=== PATIENT | female | born 2000 | race Caucasian/White ===

== ENCOUNTER 2022-10-27 19:44 | Emergency (ER) | payer SELFPAY ==
[2022-10-27 20:21] VITALS: BP 135/79; PULSE 115; RESP 20; TEMP 36.7; O2SAT 98; BMI 36.3
--- NOTE | 2022-10-27 20:30 | CRLHL7_ITS ---
For Patients: As a result of the Century Cures Act, medical imaging exams and procedure reports are released immediately into your electronic medical record. You may view this report before your referring provider. If you have questions, please contact your health care provider. INDICATION: Muffled voice, pain and swelling. TECHNIQUE: CT soft tissue of the neck was acquired without contrast. Patient refused contrast. COMPARISON: None. FINDINGS: Skull base: Unremarkable. Pharynx/Larynx/Trachea: Epiglottis is normal. Airway is patent. Adjacent soft tissues are normal. No retropharyngeal fluid. Normal pollen [place] Salivary glands: Unremarkable. Thyroid gland: Unremarkable. No significant nodules. Lymph nodes: Prominent bilateral cervical chain lymph nodes, not pathologically enlarged. Vessels: Unremarkable for age. Bones: Straightening of the cervical lordosis. No acute findings. Misc: No inflammation, mass or fluid collection. Lung apices: Unremarkable. IMPRESSION: Prominent bilateral cervical chain lymph nodes, not pathologically enlarged. This may be reactive to an infectious or inflammatory process; however, there is no evidence for inflammation within the neck on this exam. Otherwise, unremarkable noncontrast CT of the neck. Please note that all CT scans at this facility use dose modulation, iterative reconstruction, and/or weight-based dosing when appropriate to reduce radiation dose to as low as reasonably achievable. Dictated by Hugo Perez MD @ 10/27/2022 9:38:51 PM (Electronically Signed)
--- NOTE | 2022-10-27 20:32 | ED.GENADULT ---
HPI - General Adult General Chief complaint: Sore Throat Stated complaint: Headache, Stiff neck, High white blood cell count Time Seen by Provider: 10/27/22 20:25 History of Present Illness HPI narrative: This 22-year-old female is sent here from urgent care for CT imaging of her neck. She reports pain and swelling in her neck and states that her voice is a bit muffled. She does not have trismus. There is no report of fever. She does have some tachycardia. She states that she has had her tonsils removed. Related Data Home Medications Medication Instructions Recorded Confirmed No Known Home Medications 10/27/22 10/27/22 Allergies Allergy/AdvReac Type Severity Reaction Status Date / Time acetaminophen [From Midrin] Allergy Unknown Verified 10/27/22 18:13 amoxicillin [From Augmentin] Allergy Unknown Verified 10/27/22 18:13 cephalexin [From Keflex] Allergy Unknown Verified 10/27/22 18:13 clavulanic acid Allergy Unknown Verified 10/27/22 18:13 [From Augmentin] clindamycin Allergy Unknown Verified 10/27/22 18:13 dichloralphenazone Allergy Unknown Verified 10/27/22 18:13 [From Midrin] iodine Allergy Unknown Verified 10/27/22 18:13 isometheptene [From Midrin] Allergy Unknown Verified 10/27/22 18:13 sumatriptan [From Imitrex] Allergy Unknown Verified 10/27/22 18:13 ct contrast dye Allergy Severe Difficulty Uncoded 10/27/22 18:13 Breathing paper tape Allergy tore skin Uncoded 10/27/22 18:13 off Review of Systems Status of ROS: Reports: 10 or more systems reviewed and unremarkable except as noted in History and below Narrative: Constitutional: No fevers, no weight gain or loss. Eyes: No discharge. No vision changes. HENT: Severe sore throat with sense of swelling in her neck. Cardiovascular: No chest pain, no palpitations. Respiratory: No shortness of breath, no wheezes, no cough. Gastrointestinal: No abdominal pain, no vomiting, no diarrhea. Genitourinary: No dysuria, no hematuria. Musculoskeletal: Normal range of motion. Skin: No rashes, no pruritis. Neurological: No dizziness, weakness, sensory change, speech change. Endo/Heme/Allergies: No bruising or bleeding. No polydipsia. Pysch: no suicidality, no anxiety, no insomnia. All other systems reviewed and are negative. Exam Narrative: Exam Narrative: Constitutional: Well-developed, well-nourished, no acute distress. HEENT: Normocephalic, atraumatic. Pharyngeal erythema without exudate or sign of peritonsillar abscess. No airway compromise. No trismus. Neck: Normal range of motion. Nontender. Supple. Heart: Regular. No murmurs. Normal rate. Intact distal pulses. Lungs: Clear to auscultation. No chest discomfort. No wheezes, rhonchi, or rales. Abdomen: Normal bowel sounds. Nontender. No rebound tenderness. Genitalia: Deferred. Back: No midline tenderness. Normal range of motion. Extremities: Normal range of motion. No injury. Skin: Intact. No rash. Warm. No erythema or pallor. Neurologic: No altered sensation. No weakness. Alert and oriented. Psychiatric: No suicidality. No anxiety or depression. No insomnia. Nursing notes and vitals signs are reviewed. Const: Vital Signs, click to edit/add: Vital Signs - 24 hr 10/27/22 20:21 Temperature 98.1 F Pulse Rate [Right Pulse Oximeter] 115 H Respiratory Rate 20 Blood Pressure [Ri ght Upper Arm] 135/79 Pulse Oximetry 98 Oxygen Delivery Me thod Room Air Course Vital Signs Vital signs: Initial Vital Signs Temperature 98.1 F 10/27/22 20:21 Temperature Source Temporal Artery Scan 10/27/22 20:21 Pulse Rate 115 H 10/27/22 20:21 Respiratory Rate 20 10/27/22 20:21 Blood Pressure 135/79 10/27/22 20:21 Blood Pressure Mean 97 10/27/22 20:21 Blood Pressure Position Sitting 10/27/22 20:21 Pulse Oximetry 98 10/27/22 20:21 Oxygen Delivery Method 10/27/22 20:21 Vital Signs Temperature 98.1 F 10/27/22 20:21 Pulse Rate 115 H 10/27/22 20:21 Respiratory Rate 20 10/27/22 20:21 Blood Pressure 135/79 10/27/22 20:21 Pulse Oximetry 98 10/27/22 20:21 Oxygen Delivery Method 10/27/22 20:21 Temperature 98.1 F 10/27/22 20:21 Pulse Rate 115 H 10/27/22 20:21 Respiratory Rate 20 10/27/22 20:21 Blood Pressure 135/79 10/27/22 20:21 Pulse Oximetry 98 10/27/22 20:21 Oxygen Delivery Method 10/27/22 20:21 Medical Decision Making MDM Narrative Medical decision making narrative: Care for this patient is transferred to Dr. Mendes at the end of my shift who will look after her lab and imaging results and plan accordingly. Discharge Plan Discharge Clinical Impression: Pharyngitis Prescriptions: No Action No Known Home Medications Follow Up/Referrals: Provider,Not a Local [Primary Care Provider] -
[2022-10-27 20:59] LABS: HCG Qualitative* Negative (Negative)
[2022-10-27] MEDS: HYDROmorphone 0.5 mg/0.5 ml inj IVP (21:46)
[2022-10-27 21:49] VITALS: RESP 18; O2SAT 98
[2022-10-27 21:53] LABS: Basophils Percent Auto 0.1 % (0.0-3.0); Eosinophils Percent Auto 0.1 % (0.0-7.0); Hematocrit 36.9 % (33.0-51.0); Hemoglobin* 12.2 gm/dL (12.0-16.0); Immature Granulocytes Pct Auto 0.7 %; Mean Corpuscular HGB Conc 33 gm/dL (32-36); Mean Corpuscular Hemoglobin 27 pg (26-34); Mean Corpuscular Volume 83 fL (80-100); Monocytes Percent Auto 8.4 % (0.0-11.0); Neutrophils Percent Auto 78.7 % (42.0-72.0); Platelet Count* 387 K/uL (140-440); RDW Coefficient of Variation % 13.5 % (11.5-15.5); Red Blood Count 4.45 m/uL (4.00-5.20)
[2022-10-27 21:57] LABS: Slide Review Reflex No
[2022-10-27 22:00] LABS: Chloride* 104 mmol/L (96-114); Potassium* 3.7 mmol/L (3.6-5.1); Sodium* 137 mmol/L (135-149)
[2022-10-27 22:03] LABS: Carbon Dioxide* 25 mmol/L (20-32); Creatinine* 0.6 mg/dL (0.5-1.5); Est. Creatinine Clearance* 135.35; Estimated Glomerular Filt Rate 128 ml/min
[2022-10-27 22:04] LABS: Blood Urea Nitrogen* 6 mg/dL (5-24); Calcium* 9.6 mg/dL (8.4-10.6); Glucose* 98 mg/dL (60-115)
[2022-10-27 22:10] VITALS: BP 135/79; PULSE 101; RESP 18; TEMP 36.7
== END 2022-10-27 22:12 | disposition home or self-care (01) ==
PROVIDERS: Emergency Provider Emergency Medicine Emergency Medical Services
DX: J02.9 Acute pharyngitis, unspecified (principal)
CPT/HCPCS: 36415; 70490; 80048; 84703; 85025; 87651; 96374; 99284; J1170

== ENCOUNTER 2023-08-04 17:11 | Emergency (ER) | payer OTHER, BC, SELFPAY ==
[2023-08-04 17:25] VITALS: BP 120/80; PULSE 97; RESP 16; TEMP 36.3; O2SAT 99; BMI 35.5
--- OUTSIDE RECORDS SUMMARY | 2023-08-04 18:00 | XMS_ITS | Continuity of Care Document ---
Author Name Unknown Organization [facility] Address [address] [address] [place] [address] Phone Care Team Providers Care Tech Ed Teacher Name Role Phone Arsen MURPHY, February Unavailable Unavailable Medications Medication Instructions Dosage Effective Dates (start - stop) Status Comments meclizine 25 mg tablet take 1 Tablet (25MG) by oral route 3 times every day as needed for vertigo - Active hyoscyamine 0.125 mg sublingual tablet take 1 by Sublingual route every 4 hours prn 1 - Active tramadol 50 mg tablet take 1 - 2 tablet (50MG) by ORAL route every 6 hours as needed for abdominal pain 50 MG - Active meclizine 25 mg tablet take 1 Tablet (25MG) by oral route 3 times every day as needed for vertigo - No Longer Active Procedures Procedure Date Offic/outpt E&m Estab Low-mod 3 Offic/outpt E&m Estab Low-mod 3 Offic/outpt E&m Estab Low-mod 3 Routine Serum Collection Basic Metabolic Panel Thyroid Stim Hormone Offic/outpt E&m Estab Mod-hi 2 13 Ugi Endo; W/bx 1/mx Colonoscopy Flex; W/bx 1/mx Offic Cons New/estab Mod Routine Serum Collection Bld Ct; Hg/pltlt Ct Auto/compl 13 C-reactive Prot Comp Metabolic Panel Lipase Amylase Advance Directives Directive Yes / No Effective Date File Name No Information Encounters Encounter Description Practice Location Reason(s) For Visit Diagnoses Date Provider Providers Copied on Encounter [facility], [address] [address], [place], [id number], [place] tel:[phone] [facility] No Information 4 Arsen MURPHY February. [address] [facility], [facility] [address], [place], [id number] , [place]. tel:[phone] [facility], [address] [address], [place], [id number], [place] tel:[phone] [facility] No Information 4 Arsen MURPHY February. [address] [facility], [facility] [address], [place], [id number] , [place]. tel:[phone] Offic/outpt E&m Estab Low-mod [facility], [address] [address], [place], [id number], [place] tel:[phone] [facility] Abd Pain GeneralizedAbd Pain Generalized 3 Arsen MURPHY February. [address] [facility], [address], [place], [id number] , [place]. [phone] Referring Provider: Agatha George, [address] [place] [address], [place], [address]. tel:[phone] Offic/outpt E&m Estab Low-mod [facility], [address] [address], [place], [place], [id number], [place] tel:[phone] [facility] Abdominal pain (chief complaint) Abd Pain Generalized Sep-2 6 3 Arsen MURPHY February. [address] [facility], [address], [place], [place], [id number] , [place]. [phone] Referring Provider: Agatha George, [address] , [place], [address]. tel:[phone] [facility], [address] [address], [place], [place], [id number], [place] tel:[phone] [facility] No Information Sep-0 3 [facility] [address] [facility], [address], [place], [place], [id number] , [place]. [phone] Offic/outpt E&m Estab Low-mod [facility], [address] [address], [place], [place], [id number], [place] tel:[phone] [facility] Abdominal pain (chief complaint) Abd Pain GeneralizedAbd Pain Generalized March- 3 Arsen MURPHY February. [address] [facility], [address], [place], [place], [id number] , [place]. [phone] Referring Provider: Agatha George, [address] , [place], [address]. tel:[phone] Offic/outpt E&m Estab Mod-hi 2 [facility], [address] [address], [place], [place], [id number], [place] tel:[phone] [facility] Abdominal pain (chief complaint) Abd Pain GeneralizedAbd Pain Generalized Apr-0 8-201 3 Lucila MURPHY Nav. [address] [facility], [address], [place], [place], [id number] , [place]. [phone] Referring Provider: Agatha George, [address] , [place], [address]. tel:[phone] [facility], [address] [address], [place], [place], [id number], [place] tel:[phone] [facility] Abd Pain Generalized Mar- 3 Lucila Chopra. [address] [facility] [address], [place], [place], [id number] , [place]. tel: [phone] [facility], [address] [address], [place], [place], [id number], [place] tel:[phone] [facility] Abd Pain Generalized 3 Lucila Chopra. [address] [facility] [address], [address], [place], [place], [id number] , [place]. tel: [phone] [facility], [address] [address], [place], [place], [id number], [place] tel:[phone] [facility] No Information 3 Lucila Chopra. [address] [facility] [address], [address], [place], [id number] , [place]. tel: [phone] [facility], [address] [address], [place], [place], [address], [place] tel:[phone] [facility] Abd Pain Generalized 3 Lucila Chopra. [address] [facility] [address], [address], [place], [place], [id number] , [place]. tel: [phone] Offic Cons New/estab Mod [facility], [address] [address], [place], [place], [id number], [place] tel:[phone] [facility] Abdominal pain (chief complaint)Low er back pain (chief complaint)Vom iting, Temp Fluctuations (chief complaint) Abd Pain Generalized 3 Lucila Chopra. [address] [facility] [address], [address], [place], [place], [id number] , [place]. tel: [phone] Family History Family Member Type Diagnosis Age At Onset First degree family history Problem (finding) No histo ry of Crohn's Paternal grandfather Problem (finding) peptic ulcerati on Maternal grandmother Problem (finding) Primary Biliary Cirrhosis First degree family history Problem (finding) No history of Ulcerative Colitis First degree family history Problem (finding) No Family history of No history of Colon Polyps Paternal aunt Problem (finding) Colon Polyps First degree family history Problem (finding) No history of Colon Rectal Cancer Paternal grandmother Problem (finding) Colon Polyps Payers Payer name Insurance type Covered green party ID Authoriza tion(s) No Information Social History Type Description Quantity Date Captured Comments Sex Female Smoking Status No Information Chief Complaint And Reason For Visit No Information Reason For Referral Reason For Referral No Information History Of Present Illness Encounter Date Complaint History Of Prese nt Illness No Information Functional Status Date Functional Assessmen t No Information Instructions Date Instruction Additional Infor mation No Information Assessments Type Assessment Date No Information Patient Care Teams Name Effective Dates (start - stop) Status Members No Information
--- NOTE | 2023-08-04 18:10 | ED_ITS ---
HPI - General Adult General Date Seen: 08/04/23 Chief complaint: OB/Uterine Contractions Stated complaint: 5 weeks --cramping, lightheaded Time Seen by Provider: 08/04/23 17:30 Source: patient Mode of arrival: ambulatory Limitations: no limitations History of Present Illness HPI narrative: Patient is a 23-year-old with a history of an ectopic and 1st trimester loss who comes in with some lower abdominal cramping. She is almost five weeks along based on accurate LMP. She has had no vaginal bleeding. No discharge out of the ordinary. The cramps are brief, lasting less than 30 seconds. She has not taken anything for these. She did have nausea and vomiting a few days ago but nothing yesterday or today. No dysuria, urgency, frequency. Related Data Home Medications Medication Instructions Recorded Confirmed No Known Home Medications 10/27/22 10/27/22 Allergies Allergy/AdvReac Type Severity Reaction Status Date / Time acetaminophen [From Midrin] Allergy Unknown Verified 10/27/22 18:13 amoxicillin [From Augmentin] Allergy Unknown Verified 10/27/22 18:13 cephalexin [From Keflex] Allergy Unknown Verified 10/27/22 18:13 clavulanic acid Allergy Unknown Verified 10/27/22 18:13 [From Augmentin] clindamycin Allergy Unknown Verified 10/27/22 18:13 dichloralphenazone Allergy Unknown Verified 10/27/22 18:13 [From Midrin] iodine Allergy Unknown Verified 10/27/22 18:13 isometheptene [From Midrin] Allergy Unknown Verified 10/27/22 18:13 sumatriptan [From Imitrex] Allergy Unknown Verified 10/27/22 18:13 ct contrast dye Allergy Severe Difficulty Uncoded 10/27/22 18:13 Breathing paper tape Allergy tore skin Uncoded 10/27/22 18:13 off Review of Systems Narrative: Review of systems is outlined above otherwise noted to be negative. She uses albuterol on occasion. [facility] Social History Smoking Status: Never smoker How often do you have a drink containing alcohol: never AUDIT-C Alcohol total score: 0 Non-prescribed substance use: denies use Exam Narrative: Exam Narrative: Vitals noted. Patient is anxious. HEENT: Conjunctiva clear. Neck is supple without adenopathy, thyromegaly. Lungs: Clear to auscultation in all riggs. No wheezes, rales, rhonchi. Heart: Regular rate and rhythm without murmur. Abdomen: Soft and nontender. No guarding, rigidity, rebound. Bowel sounds are normal. No palpable masses. Extremities: No cyanosis or edema. Good distal pulses. Skin: No abnormalities noted of the exposed skin. Neurologic: Awake, alert, fully oriented. Neurologic exam is nonfocal. Const: Vital Signs, click to edit/add: Vital Signs - 24 hr 08/04/23 17:25 08/04/23 19:21 Temperature 97.3 F L Pulse Rate [Right Pulse Oximeter] 97 90 Respiratory Rate 16 18 Blood Pressure [Ri ght Upper Arm] 120/80 121/75 Pulse Oximetry 99 98 Oxygen Delivery Me thod Room Air Room Air Course Course Hospital Course: Patient was seen and examined. I explained that we would not be able to see baby with ultrasound unless her hCG is at least 1500. Quantitative hCG is checked and is only 130. I did have them draw in ABO. She did not have any recurrence of her cramping while she was here. We made arrangements for her to have a follow-up quantitative hCG in 2-3 days with her PCP Sangeeta Alvarez. Vital Signs Vital signs: Initial Vital Signs Temperature 97.3 F L 08/04/23 17:25 Temperature Source Temporal Artery Scan 08/04/23 17:25 Pulse Rate 97 08/04/23 17:25 Pulse Rhythm Regular 08/04/23 17:25 Respiratory Rate 16 08/04/23 17:25 Blood Pressure 120/80 08/04/23 17:25 Blood Pressure Mean 93 08/04/23 17:25 Blood Pressure Position Sitting 08/04/23 17:25 Pulse Oximetry 99 08/04/23 17:25 Oxygen Delivery Method Room Air 08/04/23 17:25 Vital Signs Temperature 97.3 F L 08/04/23 17:25 Pulse Rate 97 08/04/23 17:25 Respiratory Rate 16 08/04/23 17:25 Blood Pressure 120/80 08/04/23 17:25 Pulse Oximetry 99 08/04/23 17:25 Oxygen Delivery Method Room Air 08/04/23 17:25 Temperature 97.3 F L 08/04/23 17:25 Pulse Rate 90 08/04/23 19:21 Respiratory Rate 18 08/04/23 19:21 Blood Pressure 121/75 08/04/23 19:21 Pulse Oximetry 98 08/04/23 19:21 Oxygen Delivery Method Room Air 08/04/23 19:21 Medical Decision Making Lab Data Labs: Lab Results 08/04/23 Range/Units 18:03 HCG, Quant 130.34 mIU/mL Discharge Plan Discharge Clinical Impression: First trimester fetus Patient Disposition: Home, Self-Care Condition: Stable Additional Instructions: Push fluids, use Tylenol for pain, have a quantitative hCG drawn in 48-72 hours with your PCP. Your hCG today is 130. Activity Level: No Restrictions Discharge Diet: Regular Prescriptions: No Action No Known Home Medications Follow Up/Referrals: Sangeeta Alvarez PA [Primary Care Provider] - Stand Alone Forms: My[facility] Info Instructions
[2023-08-04 19:06] LABS: HCG Quantitative* 130.34 mIU/mL
[2023-08-04 19:21] VITALS: BP 121/75; PULSE 90; RESP 18; O2SAT 98
--- NOTE | 2023-08-10 09:45 | ED.NURSE ---
Patient's significant other, Mansi, called stating that [facility] did not have an order for a lab draw. Verbal consent obtained from Pili for permission for appeals writer to talk to Mansi. Explained that our system and [facility] system are 2 different places so orders are not able to be placed. It was recommended that patient follow up with PCP to get the HCG quantitative test ordered through [facility]. Mansi was going to call and try to make an appointment and will let appeals writer know if DC summary needs to be faxed to [facility].
== END 2023-08-04 19:26 | disposition home or self-care (01) ==
PROVIDERS: Emergency Provider Family Medicine; PCP Physician Assistant
DX: R10.30 Lower abdominal pain, unspecified (principal); Z3A.01 Less than 8 weeks gestation of pregnancy
CPT/HCPCS: 36415; 84702; 86900; 86901; 99281; 99282

== ENCOUNTER 2023-08-18 23:33 | Emergency (ER) | payer OTHER, BC, SELFPAY ==
--- NOTE | 2023-08-18 23:53 | CRLHL7_ITS ---
For Patients: As a result of the Cures Act, medical imaging exams and procedure reports are released immediately into your electronic medical record. You may view this report before your referring provider. If you have questions, please contact your health care provider. INDICATION: Vaginal spotting TECHNIQUE: Ultrasound OB pelvis transvaginal. Real time morel scale imaging of the pelvis was performed. COMPARISON: None FINDINGS: Gestational sac: Sonographic imaging demonstrates a single intrauterine gestation with average diameter of 4 mm in estimated gestational age of 5 weeks, 1 day. No evidence of a perigestational hemorrhage is seen. The amount of fluid within the sac appears appropriate for gestational age. Fetus: No pole or yolk sac is identified. Placenta: The placenta has not yet developed. Pelvis: The visualized myometrium appears normal. The right ovary has a hypoechoic lesion measuring 1.4 cm in diameter which may represent a complex cyst. The left ovary is unremarkable in appearance. No significant ascites noted. IMPRESSION: 1. By the 2012 Society of Radiologists in Ultrasound consensus panel criteria, there is an early intrauterine of approximately 5 weeks, 1 day in age and is of unknown viability. Followup beta HCG and ultrasound is recommended. Dictated by Freddie Le MD @ 08/19/2023 1:50:04 AM Dictated by: Freddie Le MD @ 08/19/2023 01:50:15 (Electronically Signed)
[2023-08-19] VITALS: BP 122/80; PULSE 99; RESP 18; TEMP 36.7; O2SAT 99; BMI 35.5
--- OUTSIDE RECORDS SUMMARY | 2023-08-19 00:28 | XMS_ITS | Continuity of Care Document ---
Author Name Unknown Organization [facility] Address [address] [address] [place] [address] Phone Care Team Providers Care Route Service Manager Name Role Phone Arsen MURPHY, February Unavailable [...] Diagnoses Date Provider Providers Copied on Encounter [facility], [address] [address], [place], [id number], [place] tel:[phone] [facility] No Information 4 Arsen MURPHY February. [address] [facility], [facility] [address], [place], [id number] , [place]. tel:[phone] [facility], [address] [address], [place], [id number], [place] tel:[phone] [facility] No Information 4 Arsen MURPHY February. [address] [facility], [facility] [address], [place], [id number] , [place]. tel:[phone] Offic/outpt E&m Estab Low-mod [facility], [address] [address], [place], [id number], [place] tel:[phone] [facility] Abd Pain GeneralizedAbd Pain Generalized 3 Arsen MURPHY February. [address] [facility], [address], [place], [id number] , [place]. [phone] Referring Provider: Agatha George, [address] [place] [address], [place], [address]. tel:[phone] Offic/outpt E&m Estab Low-mod [facility], [address] [address], [place], [id number], [place] tel:[phone] [facility] Abdominal pain (chief complaint) Abd Pain Generalized Sep-2 6 3 Arsen MURPHY February. [address] [facility], [address], [place], [id number] , [place]. [phone] Referring Provider: Agatha George, [address] , [place], [address]. tel:[phone] [facility], [address] [address], [place], [id number], [place] tel:[phone] [facility] No Information Sep-0 3 [facility] [address] [facility], [address], [place], [place], [id number] , [place]. [phone] Offic/outpt E&m Estab Low-mod [facility], [address] [address], [place], [id number], [place] tel:[phone] [facility] Abdominal pain (chief complaint) Abd Pain GeneralizedAbd Pain Generalized March- 3 Arsen MURPHY February. [address] [facility], [address], [place], [place], [id number] , [place]. [phone] Referring Provider: Agatha George, [address] , [place], [address]. tel:[phone] Offic/outpt E&m Estab Mod-hi 2 [facility], [address] [address], [place], [id number], [place] tel:[phone] [facility] Abdominal pain (chief complaint) Abd Pain GeneralizedAbd Pain Generalized Apr-0 8-201 3 Lucila MURPHY Nav. [address] [facility], [address], [place], [place], [id number] , [place]. [phone] Referring Provider: Agatha George, [address] , [place], [address]. tel:[phone] [facility], [address] [address], [place], [id number], [place] tel:[phone] [facility] Abd Pain Generalized Mar- 3 Lucila Chopra. [address] [facility] [address], [address], [place], [place], [id number] , [place]. tel: [phone] [facility], [address] [address], [place], [id number], [place] tel:[phone] [facility] Abd Pain Generalized 3 Lucila Chopra. [address] [facility] [address], [address], [place], [place], [id number] , [place]. tel: [phone] [facility], [address] [address], [place], [id number], [place] tel:[phone] [facility] No Information 3 Lucila Chopra. [address] [facility] [address], [address], [place], [id number] , [place]. tel: [phone] [facility], [address] [address], [place], [id number], [place] tel:[phone] [facility] Abd Pain Generalized 3 Lucila Chopra. [address] [facility] [address], [address], [place], [place], [id number] , [place]. tel: [phone] Offic Cons New/estab Mod [facility], [address] [address], [place], [place], [id number], [place] tel:[phone] [facility] Abdominal pain (chief complaint)Low er back pain (chief complaint)Vom iting, Temp Fluctuations (chief complaint) Abd Pain Generalized 3 Lucila Chopra. [address] [facility] [address], [address], [place], [place], [id number] , [place]. tel: [phone] Family History Family Member Type Diagnosis Age [...] Polyps Payers Payer name Insurance type Covered constitution party ID Authoriza tion(s) No Information Social [...]
[2023-08-19 00:29] LABS: Basophils Absolute Auto 0.02 K/uL (0.00-0.30); Basophils Percent Auto 0.3 % (0.0-3.0); Eosinophils Absolute Auto 0.05 K/uL (0.00-0.50); Eosinophils Percent Auto 0.6 % (0.0-7.0); Hematocrit 36.3 % (33.0-51.0); Immature Granulocytes Abs Auto 0.02 K/uL (0.00-0.30); Immature Granulocytes Pct Auto 0.3 %; Lymphocytes Absolute Auto 1.63 K/uL (0.90-2.90); Lymphocytes Percent Auto 20.4 % (20-44); Mean Corpuscular HGB Conc 33 gm/dL (32-36); Mean Corpuscular Hemoglobin 28 pg (26-34); Mean Corpuscular Volume 85 fL (80-100); Monocytes Percent Auto 8.8 % (0.0-11.0); Neutrophils Absolute Auto 5.56 K/uL (1.7-7.0); Neutrophils Percent Auto 69.6 % (42.0-72.0); Platelet Count* 398 K/uL (140-440); RDW Coefficient of Variation % 13.9 % (11.5-15.5); Red Blood Count 4.29 m/uL (4.00-5.20); White Blood Count* 7.98 K/uL (4.50-11.00)
[2023-08-19 00:31] LABS: Slide Review Reflex No
--- NOTE | 2023-08-19 01:31 | ED_ITS ---
HPI - General Time Seen by Provider: 01:31 Date Seen: 08/19/23 Chief complaint: OB/Uterine Contractions Stated complaint: 7 weeks -bleeding Time Seen by Provider: 08/19/23 01:31 Source: patient and RN notes reviewed Mode of arrival: ambulatory Limitations: no limitations History of Present Illness HPI Narrative: Pili is a very pleasant 23-year-old female with history of 3 pregnancies, 1 ectopic, 1 miscarriage and current who comes to the emergency room for spotting. Patient noted that she has been experiencing some lower abdominal c ramping. She noted to have some spotting that was light this evening. She does have a history of an ectopic and therefore came to the emergency room. Patient has not had any vomiting or fevers. She denies dysuria, blood in her urine or any problems with constipation. Related Data Home Medications Medication Instructions Recorded Confirmed No Known Home Medications 10/27/22 08/19/23 Allergies Allergy/AdvReac Type Severity Reaction Status Date / Time acetaminophen [From Midrin] Allergy Unknown Verified 08/19/23 00:02 amoxicillin [From Augmentin] Allergy Unknown Verified 08/19/23 00:02 cephalexin [From Keflex] Allergy Unknown Verified 08/19/23 00:02 clavulanic acid Allergy Unknown Verified 08/19/23 00:02 [From Augmentin] clindamycin Allergy Unknown Verified 08/19/23 00:02 dichloralphenazone Allergy Unknown Verified 08/19/23 00:02 [From Midrin] iodine Allergy Unknown Verified 08/19/23 00:02 isometheptene [From Midrin] Allergy Unknown Verified 08/19/23 00:02 sumatriptan [From Imitrex] Allergy Unknown Verified 08/19/23 00:02 ct contrast dye Allergy Severe Difficulty Uncoded 10/27/22 18:13 Breathing paper tape Allergy tore skin Uncoded 10/27/22 18:13 off Review of Systems Status of ROS: Reports: 6 or more systems reviewed and unremarkable except as noted in History and below Narrative: is present and is very loving and supportive. Const: Denies: fever or chills Cardio: Denies: shortness of breath with exertion Resp: Denies: shortness of breath GI: Reports: abdominal pain (Lower abdominal cramping); Denies: nausea or vomiting : Denies: painful urination or urinary frequency Musculo: Reports: back pain (In association with lower abdominal cramping) [facility] Medical History No significant past medical history Surgical History No significant past surgical history Social History Smoking Status: Never smoker How often do you have a drink containing alcohol: never How often do you have six or more drinks on one occasion: Never AUDIT-C Alcohol total score: 0 Non-prescribed substance use: denies use Exam Narrative: Exam Narrative: Alert and oriented. Nontoxic in appearance. Heart with regular rate and rhythm and lungs are clear. No CVA tenderness with percussion. No significant abdominal pain with palpation. Const: Vital Signs, click to edit/add: Vital Signs - 24 hr 08/19/23 00:00 08/19/23 02:14 08/19/23 02:15 Temperature 98.1 F 98.5 F 98.5 F Pulse Rate [Right Pulse Oximeter] 99 85 85 Respiratory Rate 18 18 18 Blood Pressure [Ri ght Upper Arm] 122/80 118/74 118/74 Pulse Oximetry 99 99 Oxygen Delivery Me thod Room Air Room Air Documenting provider has reviewed patient's vital signs: yes Course Course ED Course: Patient's laboratory values and ultrasound had been ordered prior to my interaction with the patient. Patient is A positive blood type. Vital Signs Vital signs: Initial Vital Signs Temperature 98.1 F 08/19/23 00:00 Temperature Source Temporal Artery Scan 08/19/23 00:00 Pulse Rate 99 08/19/23 00:00 Respiratory Rate 18 08/19/23 00:00 Blood Pressure 122/80 08/19/23 00:00 Blood Pressure Mean 94 08/19/23 00:00 Blood Pressure Position Sitting 08/19/23 00:00 Pulse Oximetry 99 08/19/23 00:00 Oxygen Delivery Method Room Air 08/19/23 00:00 Vital Signs Temperature 98.1 F 08/19/23 00:00 Pulse Rate 99 08/19/23 00:00 Respiratory Rate 18 08/19/23 00:00 Blood Pressure 122/80 08/19/23 00:00 Pulse Oximetry 99 08/19/23 00:00 Oxygen Delivery Method Room Air 08/19/23 00:00 Temperature 98.5 F 08/19/23 02:15 Pulse Rate 85 08/19/23 02:15 Respiratory Rate 18 08/19/23 02:15 Blood Pressure 118/74 08/19/23 02:15 Pulse Oximetry 99 08/19/23 02:14 Oxygen Delivery Method Room Air 08/19/23 02:14 MDM - OB/Uterine Contractions MDM Narrative Medical decision making narrative: 1. Spotting in -patient has an hCG of 454 and gestational sac measuring 5 weeks 1 day. At this time to early to tell if this is a potential early versus pending miscarriage. Pili's tells me that they did have an hCG at the clinic 2 days ago at which time hCG was greater than 600. They do have an appointment this afternoon with Adolfo Cook at the [facility]. I am not sure if they would repeat hCG today or wait until 48 hours have passed. At this point I can reassure Pili that she does not have an ectopic but cannot reassure her that this is a that will continue or perhaps we are seeing a that is much younger than calculated by LMP. 2. Disposition-home at this time. Follow-up as scheduled. Return to the em ergency room for worsening symptoms and as needed. Medical Records Attestation: I reviewed the patient's medical records. Lab Data Attestation: I reviewed the patient's lab results. Labs: Lab Results 08/19/23 Range/Units 00:10 WBC 7.98 (4.50-11.00) K/uL RBC 4.29 (4.00-5.20) m/uL Hgb 12.0 (12.0-16.0) gm/dL Hct 36.3 (33.0-51.0) % MCV 85 (80-100) fL MCH 28 (26-34) pg MCHC 33 (32-36) gm/dL RDW Coeff of Adry 13.9 (11.5-15.5) % Plt Count 398 (140-440) K/uL Neut % (Auto) 69.6 (42.0-72.0) % Lymph % (Auto) 20.4 (20-44) % [place] % (Auto) 8.8 (0.0-11.0) % Eos % (Auto) 0.6 (0.0-7.0) % Baso % (Auto) 0.3 (0.0-3.0) % Neut # (Auto) 5.56 (1.7-7.0) K/uL Lymph # (Auto) 1.63 (0.90-2.90) K/uL [place] # (Auto) 0.70 (0.00-0.90) K/UL Eos # (Auto) 0.05 (0.00-0.50) K/uL Baso # (Auto) 0.02 (0.00-0.30) K/uL Abs Immat Gran (auto) 0.02 (0.00-0.30) K/uL Imm/Tot Granulo (auto) 0.3 % HCG, Quant 434.16 mIU/mL Imaging Data US - abdomen: Attestation: I have reviewed the pertinent imaging results. Radiologist's impression: Gestational sac: Sonographic imaging demonstrates a single intrauterine gestation with average diameter of 4 mm in estimated gestational age of 5 weeks, 1 day. No evidence of a perigestational hemorrhage is seen. The amount of fluid within the sac appears appropriate for gestational age. Fetus: No pole or yolk sac is identified. Placenta: The placenta has not yet developed. Pelvis: The visualized myometrium appears normal. The right ovary has a hypoechoic lesion measuring 1.4 cm in diameter which may represent a complex cyst. The left ovary is unremarkable in appearance. No significant ascites noted. IMPRESSION: 1. By the 2012 Society of Radiologists in Ultrasound consensus panel criteria, there is an early intrauterine of approximately 5 weeks, 1 day in age and is of unknown viability. Followup beta HCG and ultrasound is recommended. Discharge Plan Discharge Clinical Impression: Spotting affecting in first trimester Patient Disposition: Home, Self-Care Condition: Unchanged Additional Instructions: Follow-up as you are scheduled today. A copy of your ultrasound and radiological read will go home with you. At this time there is no evidence of ectopic . Return as needed. Prescriptions: No Action No Known Home Medications Follow Up/Referrals: Sangeeta Alvarez PA [Primary Care Provider] - Stand Alone Forms: [employer] Info Instructions
[2023-08-19 02:14] VITALS: BP 118/74; PULSE 85; RESP 18; TEMP 36.9; O2SAT 99
[2023-08-19 02:15] VITALS: BP 118/74; PULSE 85; RESP 18; TEMP 36.9
== END 2023-08-19 02:16 | disposition home or self-care (01) ==
PROVIDERS: Family Medicine; Emergency Provider Family Medicine; PCP Physician Assistant
DX: O26.851 Spotting complicating pregnancy, first trimester (principal)
CPT/HCPCS: 36415; 76817; 84702; 85025; 93976; 99284

== ENCOUNTER 2024-04-12 16:38 | Emergency (ER) | payer BC, SELFPAY ==
[2024-04-12 16:49] VITALS: BP 145/91; PULSE 116; RESP 18; TEMP 36.7; O2SAT 99; BMI 35.5
--- NOTE | 2024-04-12 16:59 | ED.PREGNANCY ---
HPI - General Time Seen by Provider: 16:59 Date Seen: 04/12/24 Chief complaint: Vaginal Bleeding Stated complaint: 8 weeks , bleeding Time Seen by Provider: 04/12/24 16:46 Source: patient and RN notes reviewed Mode of arrival: ambulatory Limitations: no limitations History of Present Illness HPI Narrative: This 24-year-old female is coming in with spotting that started today. She has had just spotting. She has had some cramping for the last couple weeks. She believes she is about 6-8 weeks . She is seen at [facility]. This is her 4th , she has had 3 prior miscarriages. In our records, can see she has A+ for blood type in 2022. No fevers/chills, no urinary symptoms. She is scheduled for her first OB appointment in clinic this next Thursday. Patient : Yes Related Data Home Medications Medication Instructions Recorded Confirmed No Known Home Medications 10/27/22 08/19/23 Allergies Allergy/AdvReac Type Severity Reaction Status Date / Time acetaminophen [From Midrin] Allergy Unknown Verified 08/19/23 00:02 amoxicillin [From Augmentin] Allergy Unknown Verified 08/19/23 00:02 cephalexin [From Keflex] Allergy Unknown Verified 08/19/23 00:02 clavulanic acid Allergy Unknown Verified 08/19/23 00:02 [From Augmentin] clindamycin Allergy Unknown Verified 08/19/23 00:02 dichloralphenazone Allergy Unknown Verified 08/19/23 00:02 [From Midrin] iodine Allergy Unknown Verified 08/19/23 00:02 isometheptene [From Midrin] Allergy Unknown Verified 08/19/23 00:02 sumatriptan [From Imitrex] Allergy Unknown Verified 08/19/23 00:02 ct contrast dye Allergy Severe Difficulty Uncoded 10/27/22 18:13 Breathing paper tape Allergy tore skin Uncoded 10/27/22 18:13 off Review of Systems Status of ROS: Reports: 6 or more systems reviewed and unremarkable except as noted in History and below [facility] Medical History No significant past medical history Surgical History No significant past surgical history Social History Smoking Status: Never smoker Do you use any of these nicotine containing products: None Second hand tobacco smoke exposure: No How often do you have a drink containing alcohol: never How often do you have six or more drinks on one occasion: Never AUDIT-C Alcohol total score: 0 Non-prescribed substance use: denies use service: No Exam Const: Vital Signs, click to edit/add: Vital Signs - 24 hr 04/12/24 16:49 Temperature 98.0 F Pulse Rate [Right Pulse Oximeter] 116 H Respiratory Rate 18 Blood Pressure [Ri ght Upper Arm] 145/91 H Pulse Oximetry 99 Oxygen Delivery Me thod Room Air Pili is alert, interactive, no apparent distress. Very pleasant patient. Sclera clear, speak in complete sentences. Neck supple, no adenopathy, no thyromegaly masses or nodules. Lungs are clear, good air entry, no wheezing or crackles. CV regular rate and rhythm, no murmur, normal S1-S2, no S3-S4. Abdomen is soft, nontender, nondistended, no organomegaly noted. She absolutely has no rebound or guarding of her abdomen. Pelvic exam deferred at this point. Documenting provider has reviewed patient's vital signs: yes Course Course ED Course: Patient is aware that we will proceed with an ultrasound, this will help both define status, intrauterine versus ectopic. We will also be able to see it could be something like a subchorionic hemorrhage causing the bleeding in . 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 She states she had already consider that. We will get a CBC and do a quantitative hCG. Again blood type is in our records from 2022. She is Rh positive. Reevaluation(s) Time of Reevaluation #1: 19:15 Reevaluation #1: Reviewed the ultrasound with a subchorionic hemorrhage. Also reviewed her reassuring hCG level. Plan will be to discharge to home. Consultations Consultation #1: Called lab to find out if there was platelet clumping seen on slide review as [place] [address]. We have 3 other values stemming back from 2021 that show her platelet count to be consistently in the upper 300 range. The quality assurance qa lab analyst did state that there was a clot in the tube. They will be re-drawing her and rechecking her platelet count. Time: 18:16 Consultation #2: Did speak with Dr. Garrison who was on-call for OB/nursery from [facility]. We did review her case, the preliminary route delivery driver report of a gestational sac measuring about 5 weeks, no pole or yolk sac seen, did appreciate subchorionic hemorrhage. We need to await the Radiology over-read. This is reassuring as there is a potential cause for bleeding with a subchorionic hemorrhage. He states her hCG was 875 yesterday. We are awaiting the result still from lab today. Did review her low platelet count but that there was a blood clot. We are waiting repeat platelet testing. Her platelet count yesterday was 436,000. Time: 18:26 Vital Signs Vital signs: Initial Vital Signs Temperature 98.0 F 04/12/24 16:49 Temperature Source Temporal Artery Scan 04/12/24 16:49 Pulse Rate 116 H 04/12/24 16:49 Respiratory Rate 18 04/12/24 16:49 Blood Pressure 145/91 H 04/12/24 16:49 Blood Pressure Mean 109 H 04/12/24 16:49 Blood Pressure Position Sitting 04/12/24 16:49 Pulse Oximetry 99 04/12/24 16:49 Oxygen Delivery Method Room Air 04/12/24 16:49 Vital Signs Temperature 98.0 F 04/12/24 16:49 Pulse Rate 116 H 04/12/24 16:49 Respiratory Rate 18 04/12/24 16:49 Blood Pressure 145/91 H 04/12/24 16:49 Pulse Oximetry 99 04/12/24 16:49 Oxygen Delivery Method Room Air 04/12/24 16:49 Temperature 98.0 F 04/12/24 16:49 Pulse Rate 116 H 04/12/24 16:49 Respiratory Rate 18 04/12/24 16:49 Blood Pressure 145/91 H 04/12/24 16:49 Pulse Oximetry 99 04/12/24 16:49 Oxygen Delivery Method Room Air 04/12/24 16:49 MDM - OB/Uterine Contractions Lab Data Attestation: I reviewed the patient's lab results. Lab results narrative: White blood count is 8780, hemoglobin is 11.8, platelet count is 448,000. Labs: Lab Results 04/12/24 04/12/24 Range/Units 17:40 18:25 WBC Cancelled 8.78 Corrected WBC Cancelled RBC Cancelled 4.27 Hgb Cancelled 11.8 L Hct Cancelled 36.2 MCV Cancelled 85 MCH Cancelled 28 MCHC Cancelled 33 RDW Coeff of Adry Cancelled 13.5 Plt Count Cancelled 448 H Neut % (Auto) Cancelled 72.5 H Lymph % (Auto) Cancelled 18.6 L [place] % (Auto) Cancelled 7.9 Eos % (Auto) Cancelled 0.5 Baso % (Auto) Cancelled 0.3 Neut # (Auto) Cancelled 6.40 Lymph # (Auto) Cancelled 1.60 [place] # (Auto) Cancelled 0.70 Eos # (Auto) Cancelled 0.04 Baso # (Auto) Cancelled 0.03 Abs Immat Gran (auto) Cancelled 0.02 Imm/Tot Granulo (auto) Cancelled 0.2 Diff Slide Review Cancelled HCG, Quant 1339.40 mIU/mL Imaging Data US OB: Attestation: I have reviewed the pertinent imaging results. Radiologist's impression: Patient: PILI FERNANDEZ Facility:?[facility] Patient ID:?[id number] Site Patient ID:?[id number]. Site :?1998 Study:?US-OB Pelvis dating-04/12/2024 6:15:03 PM Ordering Physician:?Lisset Langford Final Report: INDICATION: 6-8 weeks spotting/cramping. LMP unknown. COMPARISON: None. TECHNIQUE: Real-time morel-scale imaging of the pelvis was performed. FINDINGS: Sonographic imaging demonstrates a small cystic space in the fundal endometrium with surrounding decidual reaction. This likely represents an early gestational sac. No yolk sac or pole identified. The mean sac diameter measures 0.3 cm which corresponds to a gestational age of 5 weeks 0 days. There is a 0.7 x 0.4 x 0.5 cm subchorionic hemorrhage inferior to the gestational sac. The uterus is anteverted in position. The cervix appears closed. The right ovary measures 3.2 x 2.4 x 3.3 cm and contains a 2.2 x 1.8 x 2.0 cm corpus luteal cyst. The left ovary was not visualized. No suspicious adnexal mass. No free fluid in the pelvic cul-de-sac. IMPRESSION: 1. Early intrauterine gestational sac corresponding to a gestational age of 5 weeks 0 days. No yolk sac or pole identified. Recommend follow-up ultrasound in 14 days or more to assess viability. 2. Small subchorionic hemorrhage. Dictated by Bhavya Gauthier MD @ 04/12/2024 7:01:34 PM (Electronic Signature) Discharge Plan Discharge Clinical Impression: First trimester bleeding Subchorionic hemorrhage Qualifiers: Trimester: first trimester Qualified Code(s): O20.8 - Other hemorrhage in early Patient Disposition: Home, Self-Care Condition: Stable Instructions: Subchorionic Hemorrhage (ED) Additional Instructions: Minimize physical activity, pelvic rest until further notice. Keep your appointment next week as scheduled. If you have increased bleeding or concerning symptoms, please contact your clinic. If you do start to have heavy bleeding and or bleeding through heavy pad hourly for more than a couple hours, are feeling symptomatic from blood loss, you should be re-evaluated in the ER. You will hopefully not have any heavy bleeding with a subchorionic hemorrhage. Your hCG level here today was 1339.4. Activity Level: No strenuous activity Prescriptions: No Action No Known Home Medications Follow Up/Referrals: Sangeeta Alvarez PA [Referring] - Stand Alone Forms: [employer] Info Instructions
--- NOTE | 2024-04-12 17:07 | US_ITS ---
Patient: XIANG FERNANDEZ Facility:?[facility] Patient ID:?[id number] Site Patient ID:?[id number]. Site :?1998 Study:?US-OB Pelvis dating-04/12/2024 6:15:03 PM Ordering Physician:?Lisset Langford Final Report: INDICATION: 6-8 weeks spotting/cramping. LMP unknown. COMPARISON: None. TECHNIQUE: Real-time morel-scale imaging of the pelvis was performed. FINDINGS: Sonographic imaging demonstrates a small cystic space in the fundal endometrium with surrounding decidual reaction. This likely represents an early gestational sac. No yolk sac or pole identified. The mean sac diameter measures 0.3 cm which corresponds to a gestational age of 5 weeks 0 days. There is a 0.7 x 0.4 x 0.5 cm subchorionic hemorrhage inferior to the gestational sac. The uterus is anteverted in position. The cervix appears closed. The right ovary measures 3.2 x 2.4 x 3.3 cm and contains a 2.2 x 1.8 x 2.0 cm corpus luteal cyst. The left ovary was not visualized. No suspicious adnexal mass. No free fluid in the pelvic cul-de-sac. IMPRESSION: 1. Early intrauterine gestational sac corresponding to a gestational age of 5 weeks 0 days. No yolk sac or pole identified. Recommend follow-up ultrasound in 14 days or more to assess viability. 2. Small subchorionic hemorrhage. Dictated by Bhavya Gauthier MD @ 04/12/2024 7:01:34 PM Signed by:?Bhavya Gauthier MD @04/12/2024 7:01:34 PM (Electronic Signature)
--- OUTSIDE RECORDS SUMMARY | 2024-04-12 17:49 | XMS_ITS | Clinical Summary ---
Author Name Unknown Organization [facility] s [facility] Address [place], [place] [address] Care Team Providers Care User Experience Researcher Name Role Phone [facility] Primary Care Provider Unavail able Nia Pritchard DO Unavailable [phone] Allergies Active Allergy Reactions Criticality Noted Date Comments Amoxicillin-Pot Clavulanate Rash 01/04/2015 Clindamycin Paresthesias 08/07/2015 Diatrizoate Allergen Hives,Shortness Of Breath 12/06/2008 CT contrast Sumatriptan Hives,Shortness Of Breath 09/21/2013 Also had tingling in arms and head. Iodine Hives 07/18/2015 Cephalexin Shortness Of Breath 07/08/2014 See ER notes from 05-10-14, med reaction vs conversion disorder Pbcrjoy-Zwdjrqtnu-Pqx taminophn Rash 09/28/2014 Adhesive Rash 07/18/2015 Skin comes off Medications Medication Sig Dispensed Refills Start Date End Date Status albuterol HFA (PRO-AIR; VENTOLIN; PROVENTIL) 90 mcg/actuation inhalerIndications:A cute cough Inhale 2 Puffs by mouth every 4 hours if needed (cough). 1 Each 10/31/2022 Active ondansetron (ZOFRAN ODT) 4 mg disintegrating tabletIndications:Na usea and vomiting, unspecified vomiting type Place 1 Tablet (4 mg) on the tongue every 8 hours if needed for Nausea/Vomiti ng. 30 Tablet 04/01/2024 Active 16-tudq-xtejfe 6-dha 30 mg iron-1mg -200 mg cap Take by mouth. 04/01/2024 Active ondansetron (ZOFRAN ODT) 4 mg disintegrating tabletIndications:Na usea and vomiting, unspecified vomiting type Place 1 Tablet (4 mg) on the tongue every 8 hours if needed for Nausea/Vomiti ng. 30 Tablet 08/21/2023 04/01/2024 Discontinue d(Reorder (E-cancel not sent)) hydrOXYzine HCL (ATARAX) 25 mg tabletIndications:In somnia, idiopathic Take 1 Tablet (25 mg) by mouth at bedtime if needed (for sleep). 14 Tablet 08/21/2023 04/01/2024 Discontinue d(*Patient states no longer taking) Active Problems Problem Noted Date Diagnosed Date 04/11/2024 Overview: Primary OB patient of Preferred name: P[place] Language/cultural preferences: [place] Islander OB HISTORY / PERTINENT MEDICAL HISTORY: Dating by LMP and first trimester ultrasound OB History Para Term AB Living 4 0 0 0 3 0 SAB IAB Ectopic Multiple Live Births 2 0 1 0 # Outcome Date GA Lbr Carlitos/2nd Weight Sex Delivery Anes PTL Lv 4 Current 3 SAB 07/2023 2 Ectopic 02/06/17 1 SAB No prior hx of preeclampsia, HTN, GDM, dystocia If hx C/S needs TOLAC consult Issues this : Patient encounter date not specified. Problems (from 04/11/24 to present) Problem Noted Resolved 04/11/2024 by Ros Desir, RN No Social History : FOB/Spouse: Children: Work/school: Substance use: COURSE: [facility] US at [place]: normal, placenta, sex Last estimated weight: Additional Ultrasounds: Vaccination: Flu Tdap (27-36w) BMI: . Recommended weight gain: Pre-eclampsia risk on aspirin? LABS: Rh: A Rh Positive Hemoglobin: GBS: (at w) 1h Glucose: HSV: Urine culture Pap ABORH Date Value Ref Range Status 04/11/2024 A Rh Positive Final ANTIBODY SCREEN Date Value Ref Range Status 04/11/2024 Negative Negative Final TREPONEMA PALLIDUM Date Value Ref Range Status 04/11/2024 Non-Reactive Non-Reactive Final 08/11/2023 Negative Negative Final RUBELLA IGG ANTIBODY Date Value Ref Range Status 04/11/2024 1.42 >=1.00 Index Final INTERPRETATION Date Value Ref Range Status 04/11/2024 Positive Final Comment: Presence of detectable IgG antibodies. A positive result generally indicates exposure to the virus or previous vaccination, but is not an indication of active infection or stage of disease. 08/11/2023 Positive Final Comment: Presence of detectable IgG antibodies. A positive result generally indicates exposure to the virus or previous vaccination, but is not an indication of active infection or stage of disease. HBSAG Date Value Ref Range Status 04/11/2024 Nonreactive Nonreactive Final HEPATITIS C ANTIBODY Date Value Ref Range Status 04/11/2024 Non-Reactive Non-Reactive Final Comment: Please note, per www.CDC.gov: If a patient is known to be at high risk of HCV infection, or is symptomatic, and the physician's suspicion of HCV infection is high, HCV RNA testing is often employed and is of diagnostic value, even after an initial negative anti-HCV test result. HIV-1/HIV-2 SCREEN Date Value Ref Range Status 04/11/2024 Non-Reactive Non-Reactive Final Comment: HIV-1 p24 and HIV-1/HIV-2 Ab Not Detected. VARICELLA ZOSTER IGG ANTIBODY Date Value Ref Range Status 08/11/2023 191.0 >=165.0 INDEX Final HEMOGLOBIN Date Value Ref Range Status 04/11/2024 12.1 12.0 - 16.0 g/dL Final PLATELET COUNT Date Value Ref Range Status 04/11/2024 436 140 - 440 thou/cu mm Final CHLAMYDIA PROBE Date Value Ref Range Status 04/11/2024 Negative Final N GONORRHOEAE PROBE Date Value Ref Range Status 04/11/2024 Negative Final PLAN: plan: Support people at delivery: Circumcision: Breast/Bottle: Contraception: Mild persistent asthma without complication 11/2018 Recurrent streptococcal tonsillitis 09/04/2015 Conversion disorder 07/18/2015 Chronic headaches 04/12/2015 Overview: Referred to as daily headaches at [place]; [facility]; mother refers to them as cluster headaches but no documentation found with that diagnosis. Clostridium difficile enteritis 08/15/2014 Learning disability 08/15/2014 Speech delay 08/15/2014 Anxiety 10/15/2013 Body temperature low 02/07/2013 Unspecified constipation 03/22/2010 POTS (postural orthostatic tachycardia syndrome) Comments Yes Encounters Date Type Department Care Team Description 04/11/2024 10:40 AM CDT OB Encounter [facility] [address] [place] [address] Education (Ob intake) 04/11/2024 Travel 04/08/2024 10:00 AM CDT Orders Only [facility] [address] [facility] [place] [address] Lab, [place] Lab 04/08/2024 Travel 04/06/2024 Telephone [facility] [address] [facility] [place] [address] Nia Pritchard, DO Questions (//HIGH RISK); Appointment () 04/04/2024 10:00 AM CDT Orders [place] [address] [place] [address] Lab, [place] [facility] 04/04/2024 Travel 04/01/2024 2:25 PM CDT Office Visit [facility] [address] [place] [address] Rodger Garrison MD Confirmation (Positive test at home Thursday yesterday and today. Would like HGC test done to check her levels. Menstrual cycles have been irregular since her miscarriage last July. ) 04/01/2024 Travel from Last 3 Months Immunizations Name Administration Dates Next Due DTP 1998 DTaP 07/19/2002, 9,1998,1998, 1998 HIB PRP-OMP (PedvaxHIB) 04/10/1999,1998, HIB-HepB (Comvax) 04/10/1999,1998,06/06/19 98 Hepatitis B (Peds) 04/10/1999,1998, 998 Inactivated Polio Vaccine 06/27/2002,1998, 1998 Influenza Virus, Unspecified 01/22/2007 Influenza, IIV3 (Age 6-35 mos) 10/31/2011 Influenza, IIV3 (Age >=3 years) 10/31/2011,01/22 Influenza, IIV4 11/05/2017,10/12/2015 MMR 06/27/2002,04/10/1999 Oral Polio Vaccine 04/10/1999 Tdap 08/02/2010 Varicella Vaccine 08/02/2010,04/10/1999 Family History Medical History Relation Name Comments Good Health Brother 1 Good Health Brother 2 Good Health Father Asthma Maternal Grandfather Heart Disease Maternal Grandfather [place] wit h stents placed Asthma Maternal Grandmother Cancer Maternal Grandmother Asthma Mother Other Mother migraines Rheum arthritis Mother Heart Disease Paternal Grandfather has a pacemaker Anesthesia Problem No Family History Blood Disease No Family History Relation Name Status Comments Brother 1 Brother 2 Alive Father Maternal Grandfather Maternal Grandmother Mother Paternal Grandfather Social History Tobacco Use Types Packs/Day Years Used Date Smoking Tobacco: Never Smokeless Tobacco: Never Tobacco Cessation:Counseling Given: Yes Comments:No exposure Alcohol Use Standard Drinks/Week Comments No 0 (1 standard drink = 0.6 oz pur e alcohol) Social Connections Answer Date Recorded Frequency of Communication with Friends and Fami ly 0 08/21/2023 Financial Resource Strain Answer Date R ecorded Difficulty of Paying Living Expenses 3 08/21/2023 Difficulty of Paying Living Expenses Not on file 08/21/2023 Food Insecurity Answer Date Recorded Worried About Running Out of Food in the Last Ye ar 1 08/21/2023 Transportation Needs Answer Date Record ed Lack of Transportation (Medical) 1 08/21/2023 Housing Stability Answer Date Recorded Unable to Pay for Housing in the Last Year 1 08/21/2023 Comments Yes Sex and Gender Information Value Date Recorded Sex Assigned at Not on file Gender Identity Not on file Sexual Orientation Not on file Obstetrics History Para Term AB IAB SAB Ectopic Multiple Livin g Live Births 4 0 0 0 3 0 2 1 0 0 Date Outcome GA Total Labor Labor/2nd/3rd Weight Sex Delivery Anes PTL Amisha A1 A5 Name Cl in SAB 02/06 Ectopic 08/19 Current Summary Episode Dates Number of Fetuses Estimated Date of Delivery 04/11/2024 - Present (04/12/2024) Unknown Dating Summary Based On JENELLE [place] Diff Last Menstrual Period (LMP Unknown) Vitals Pregravid Weight Height TWG (As of 04/12/2024) Pregrav id BMI 1.681 m (5' 6.2) Notes Progress Notes - OB Encounte r - 04/11/2024 - [place]: 04/11/2024 - Ros Desir RN SUBJECTIVE: Pili Cavazos is a 24 y.o. female, , who presents for confirmation and ob education. 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 Had positive test at home. This was Planned, Desired. Patient was on contraception. Date Reliability: unknown JENELLE based on LMP: Estimated Date of Delivery: None noted. 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 MENSTRUAL HISTORY: No LMP recorded (lmp unknown). Patient is .: Cycle Regularity: irregular Past Medical History: . Date Asthma 2016 childhood Frequent headaches Consult with Neurology 09/04/2014 [facility] History of intrauterine in previous POTS (postural orthostatic tachycardia syndrome) 09/30/2014 Recurrent streptococcal tonsillitis 09/04/2015 Unspecified constipation 03/22/2010 Urinary tract infection OB History Para Term AB Living 4 0 0 0 1 0 SAB IAB Ectopic Multiple Live Births 0 0 1 0 # Outcome Date GA Lbr Carlitos/2nd Weight Sex Delivery Anes PTL Lv 4 Current 3 2 Ectopic 1 5P'S SUBSTANCE ABUSE SCREEN FOR ALCOHOL, DRUGS AND TOBACCO: Did any of your parents have a problem with using alcohol or drugs? No Do any of your friends (peers) have problems with drug or alcohol use? No Does your partner have a problem with drug or alcohol use? No Before you knew you were , how often did you drink beer, wine, wine coolers or liquor or use any kind of drug? Rarely In the past month, how often did you drink beer, wine, wine coolers or liquor or use any kind of drug? Not at all How much did you smoke, vape or use tobacco or nicotine in any form before you knew you were ? Don't Smoke, Vape or use Tobacco Genetic Screening Genetic Screening/Teratology Counseling- Includes patient, baby's father, or anyone in either family with: Patient's age 35 years or older as of estimated date of delivery: No Thalassemia (Filipino, St Helenian, Mediterranean, or background): MCV less than 80: No Neural tube defect (Meningomyelocele, Spina bifida, or Anencephaly): Yes (Comment: second cousin, mom's side spinabifida) Congenital heart defect: Yes (Comment: Dad, bicuspid aortic valve) Down syndrome: No Allan-Sachs (Ashkenazi Pentecostalism, Cajun, Polish Georgian): No Dulce disease (Ashkenazi Pentecostalism): No Familial dysautonomia (Ashkenazi Pentecostalism): No Sickle cell disease or trait (): No Hemophilia or other blood disorders: No Muscular dystrophy: No Cystic fibrosis: No Motley's chorea: No Intellectual disability and/or autism: No Other inherited genetic or chromosomal disorder: No Maternal metabolic disorder (eg. Type 1 diabetes, PKU): No CURRENT MEDICATIONS: Current Outpatient Medications Medication Sig albuterol HFA (PRO-AIR; VENTOLIN; PROVENTIL) 90 mcg/actuation inhaler Inhale 2 Puffs by mouth every 4 hours if needed (cough). ondansetron (ZOFRAN ODT) [address] 1 Tablet (4 mg) on the tongue every 8 hours if needed for Nausea/Vomiting. 00-gncn-zceaic 6-dha 30 mg iron-1mg -200 mg cap Take by mouth. No current facility-administered medications for this visit. Medications have been reviewed by me and are current to the best of my knowledge and ability. ALLERGIES: Augmentin [amoxicillin-pot clavulanate], Clindamycin, Diatrizoate allergen, Imitrex [sumatriptan], Iodine, Keflex [cephalexin], Midrin [obbgvih-kniqbwgvp-zrumchlyqmps], and Paper tape [adhesive] OBJECTIVE: LMP (LMP Unknown) ,URINE (no units) Date Value 10/28/2021 Negative ASSESSMENT/PLAN: ICD-10-CM 1. Encounter for supervision of other normal in first trimester Z34.81 CBC W PLT NO DIFF ANTI HIV 1/2 URINE CULTURE TYPE AND SCREEN RUBELLA IMMUNE STATUS TREPONEMA PALLIDUM HBSAG (HBS) ANTI HCV ROD AND TUBE STRAIGHTENER PROBE - GC CHLAMYDIA DNA PCR [[id number]] URINALYSIS W REFLEX MICROSCOPIC IF POSITIVE [53515.2] US 1ST TRIMESTER (< 14 weeks) [23262.0] EDUCATION/PATIENT INSTRUCTIONS - Advised patient to start/continue vitamin. - Discussed risk of using alcohol, tobacco, other drugs in . - Discussed healthy lifestyle in . - Provided copy of [facility]nings book and book inserts, discussed gnay-ldc-cxvfuty medications, and follow up. - Encouraged patient to call clinic at [phone] with any vaginal bleeding, fluid leaking from vagina, severe abdominal pain, nausea with severe vomiting, fever higher than 100.4F, painful urination, headache not relieved by Tylenol, or other concerns - labs completed with today's visit. yes - Patient informed to schedule 1st trimester dating ultrasound between 7-10 weeks. - Initial OB appointment with FP/OB scheduled. PHQ-9, and COVID-19 vaccine discussion to be completed at this visit. Future Appointments Date Time Provider Department Center 04/18/2024 9:10 AM Nia Pritchard, DO NFLDFP NFLD Ros Desir RN .................... 04/11/2024 11:05 AM Last Filed Vital Signs Vital Sign Reading Time Taken Comments Blood Pressure 113/71 04/01/2024 2:34 PM CDT Pulse 106 04/01/2024 2:34 PM CDT Temperature 36.8 ??C (98.3 ??F) 10/31/2022 1 0:19 AM [employer] Respiratory Rate 20 09/17/2015 11:3 8 AM CDT Oxygen Saturation 99% 04/01/2024 2:34 PM CDT Inhaled Oxygen Concentration - - Weight 100.9 kg (222 lb 6.4 oz) 024 11:41 AM CDT Height 168.1 cm (5' 6.2) 04/11/2024 11 :41 AM CDT Body Mass Index 35.68 04/11/2024 11:41 AM CDT Plan of Treatment Upcoming Encounters Date Type Department Care Team (Late st Contact Info) Description 04/18/2024 7:30 AM CDT Appointment [facility] [address] [place] [address] 04/18/2024 9:10 AM CDT OB Encounter [facility] [address] [place] [address] Nia Pritchard, [address] [place] [address] Health Maintenance Due Date Last Done Comments HPV series for age 9-26 (1 - 3-dose series) 2013 Depression screening for age 12+ 11/05/2018 11/05/2017, 07/02/2016 Pap test for age 21-65 2019 Tetanus booster 08/02/2020 08/02/2010 COVID-19 vaccine series ( season) 2023 Influenza for age 9-49 07/31/2024 7, 10/12/2015, 10/31/2011, Additional history exists BMI (ht and wt on same day) for age 18+ 04/11/2025 04/11/2024, 10/28/2021, 04/30/2019, Additional history exists Tdap Completed 08/02/2010 HIV for age 15-65 Completed 04/11/2024, 08/11/2023 Hepatitis C screening for age 18-79 Completed 04/11/2024 Pneumococcal series for age 6-64 Aged Out No longer eligible based on patient's age to complete this topic Procedures Procedure Name Priority Date/Time Associated Diagnosis Comments UA W/ SEDIMENT EXAM REFLEXED PER CRITERIA Routine 04/11/2024 11:53 AM CDT Encounter for supervision of other normal in first trimester GC CHLAMYDIA TRACH PROBE Routine 04/11/2024 11:53 AM CDT Encounter for supervision of other normal in first trimester TYPE & SCREEN Routine 04/11/2024 11:49 AM CDT Encounter for supervision of other normal in first trimester HCG BETA QUANT, Routine 04/11/2024 11:49 AM CDT Encounter for supervision of other normal in first trimester ANTI HCV Routine 04/11/2024 11:49 AM CDT Encounter for supervision of other normal in first trimester HBSAG (HBS) Routine 04/11/2024 11:49 AM CDT Encounter for supervision of other normal in first trimester TREPONEMA PALLIDUM Routine 04/11/2024 11 :49 AM CDT Encounter for supervision of other normal in first trimester RUBELLA IMMUNE STATUS Routine 04/11/2024 11:49 AM CDT Encounter for supervision of other normal in first trimester ANTI HIV 1/2 Routine 04/11/2024 11:49 AM CDT Encounter for supervision of other normal in first trimester CBC W PLT NO DIFF Routine 04/11/2024 11: 49 AM CDT Encounter for supervision of other normal in first trimester HCG BETA QUANT, Routine 04/08/2024 10:00 AM CDT Positive test HCG BETA QUANT, Routine 04/04/2024 10:19 AM CDT Positive test HCG BETA QUANT, Routine 04/01/2024 3:05 PM CDT Positive test from Last 3 Months Results * ROD AND TUBE STRAIGHTENER PROBE - GC CHLAMYDIA DNA PCR [[id number]] (04/11/2024 11:53 AM CDT) CHLAMYDIA PROBE Negative 2:47 AM CDT [facility] TRAL LABORAT[facility] N GONORRHOEAE PROBE Negative 04/12/2024 2:47 AM CDT [facility] TRAL LABOR[facility] Other URINE SPECIMEN / Unknown Non-Blood / Unknown 04/11/2024 11:53 AM CDT 04/11/2024 11:53 AM CDT Rose Kapadia MD MICROBIOLOGY [facility] [address] [place] [id number], * URINALYSIS W REFLEX MICROSCOPIC IF POSITIVE [03705.2] (04/11/2024 11:53 AM CDT) COLOR Yellow Yellow Color 04/11/2024 12:00 PM CDT [facility] CLARITY Clear Clear Clarity 04/11/2024 12:00 PM CDT [facility] SPECIFIC GRAVITY,URINE 1.020 1.010, 1.015, 1.020, 1.025 04/11/2024 12:00 PM CDT [facility] PH,URINE 6.0 6.0, 7.0, 8.0, 5.5, 6.5, 7.5, 8.5 04/11/2024 12:00 PM CDT [facility] UROBILINOGEN, QUALITATIVE Normal Normal EU/dl 04/11/2024 12:00 PM CDT [facility] PROTEIN, URINE Negative Negative mg/dL 04/11/2024 12:00 PM CDT [facility] GLUCOSE, URINE Negative Negative mg/dL 04/11/2024 12:00 PM CDT [facility] KETONES,URINE Negative Negative mg/dL 04/11/2024 12:00 PM CDT [facility] BILIRUBIN,URI NE Negative Negative 04/11/2024 12:00 PM CDT [facility] OCCULT BLOOD,URINE Negative Negative 04/11/2024 12:00 PM CDT [facility] NITRITE Negative Negative 04/11/2024 12:00 PM CDT [facility] LEUKOCYTE ESTERASE Negative Negative 04/11/2024 12:00 PM CDT [facility] Urine URINE SPECIMEN / Unknown Non-Blood / Unknown 04/11/2024 11:53 AM CDT 04/11/2024 11:53 AM CDT Rose Kapadia MD URINE [facility] [address] [place] [address], * TREPONEMA PALLIDUM (04/11/2024 11:49 AM CDT) TREPONEMA PALLIDUM Non-Reacti ve Non-Reacti ve 04/12/2024 2:55 AM CDT [facility] TRAL LABORATORY Blood BLOOD SPECIMEN / Unknown Venipuncture / Unknown 04/11/2024 11:49 AM CDT 04/11/2024 11:50 AM CDT Rose Kapadia MD SEND OUTS [facility] [address] [place] [address], * RUBELLA IMMUNE STATUS (04/11/2024 11:49 AM CDT) INTERPRETATION Positive 04/12/2024 7:52 AM CDT [facility] Comment:Presence of detectab le IgG antibodies. A positive result generally indicates exposure to the virus or previous vaccination, but is not an indication of active infection or stage of disease. RUBELLA IGG ANTIBODY 1.42 >=1.00 Index 04/12/2024 7:52 AM CDT [facility] Blood BLOOD SPECIMEN / Unknown Venipuncture / Unknown 04/11/2024 11:49 AM CDT 04/11/2024 11:50 AM CDT Narrative [facility] - 04/12/2024 7:52 AM CDT ??<0.90 ? Negative ?? 0.90-0.99 ?? Equivocal >=1.0 ?Positive Rose Kapadia MD SEND OUTS [facility] [address] [place] [address], * TYPE AND SCREEN (04/11/2024 11:49 AM CDT) ABORH A Rh Positive 04/11/2024 10:13 PM CDT [facility] BLOOD BANK ANTIBODY SCREEN Negative Negative 04/11/2024 10:13 PM CDT [facility] BLOOD BANK SPECIMEN EXPIRATION DATE/TIME 04/14/24 23:59 04/11/2024 10:13 PM CDT [facility] B[facility]OD B[facility] Blood BLOOD SPECIMEN / Unknown Venipuncture / Unknown 04/11/2024 11:49 AM CDT 04/11/2024 11:50 AM CDT Rose Kapadia MD BLOOD BANK Performing Organization Address City/[facility]/ZIP Co de Phone Number [facility] BLOOD BANK [address] [place] [address], * HBSAG (HBS) (04/11/2024 11:49 AM CDT) HBSAG Nonreactive Nonreactive 04/12/2024 2:49 AM CDT [facility] Blood BLOOD SPECIMEN / Unknown Venipuncture / Unknown 04/11/2024 11:49 AM CDT 04/11/2024 11:50 AM CDT Rose Kapadia MD SEND OUTS Performing Organization Address City/[facility]/ZIP Co de Phone Number [facility] [address] [place] [address], * ANTI HCV (04/11/2024 11:49 AM CDT) [facility] HEPATITIS C ANTIBODY Non-Reacti ve Non-React suly 04/12/2024 4:07 AM CDT [facility] TRAL LABORATORY Comment:Please note, per www .CDC.gov: If a patient is known to be at high risk of HCV infection, or is symptomatic, and the physician's suspicion of HCV infection is high, HCV RNA testing is often employed and is of diagnostic value, even after an initial negative anti-HCV test result. Blood BLOOD SPECIMEN / Unknown Venipuncture / Unknown 04/11/2024 11:49 AM CDT 04/11/2024 11:50 AM CDT Rose Kapadia MD SEND OUTS Performing Organization Address City/[facility]/ZIP Co de Phone Number [facility] [address] [place] [address], * CBC W PLT NO DIFF (04/11/2024 11:49 AM CDT) [facility] WHITE BLOOD COUNT 7.0 4.5 - 11.0 thou/cu mm 04/11/2024 11:59 AM CDT [facility] RED BLOOD COUNT 4.28 4.00 - 5.20 mil/cu mm 04/11/2024 11:59 AM CDT [facility] HEMOGLOBIN 12.1 12.0 - 16.0 g/dL 04/11/2024 11:59 AM CDT [facility] HEMATOCRIT 36.1 33.0 - 51.0 % 04/11/2024 11:59 AM CDT [facility] MCV 84 80 - 100 fL 04/11/2024 11:59 AM CDT [facility] MCH 28.3 26.0 - 34.0 pg 04/11/2024 11:59 AM CDT [facility] MCHC 33.5 32.0 - 36.0 g/dL 04/11/2024 11:59 AM CDT [facility] RDW 14.2 11.5 - 15.5 % 04/11/2024 11:59 AM CDT [facility] PLATELET COUNT 436 140 - 440 thou/cu mm 04/11/2024 11:59 AM CDT [facility] MPV 8.9 6.5 - 11.0 fL 04/11/2024 11:59 AM CDT [facility] Blood BLOOD SPECIMEN / Unknown Venipuncture / Unknown 04/11/2024 11:49 AM CDT 04/11/2024 11:50 AM CDT Rose Kapadia MD HEMATOLOGY [facility] [address] [place] [address], * HCG BETA QUANT, (04/11/2024 11:49 AM CDT) Only the most recent of4 resultswithin the time period is included. Pathologist [facility] HCG BETA QUANT,PREGNANC Y 875 mIU/mL 04/12/2024 2:41 AM CDT [facility] Blood BLOOD SPECIMEN / Unknown Venipuncture / Unknown 04/11/2024 11:49 AM CDT 04/11/2024 11:50 AM CDT [facility] LABORATORY - 04/12/2024 2:41 AM CDT Expected Value for Healthy Non- premenopausal women <5.3mIU/mL FOR GESTATIONAL ASSESSMENT-See Range Table Below Weeks of gestation hCG mIU/mL 3 weeks gestation (5.8 - 71.2) 4 weeks gestation (9.5 - 750) 5 weeks gestation (217 - 7138) 6 weeks gestation (158 - 31,795) 7 weeks gestation (3,697 - 163,563) 8 weeks gestation (32,065 - 149,571) 9 weeks gestation (63,803 - 151,410) 10 weeks gestation (46,509 - 186,977) 12 weeks gestation (27,832 - 210,612) 14 weeks gestation (13,950 - 62,530) 15 weeks gestation (12,039 - 70,971) 16 weeks gestation (9,040 - 56,451) 17 weeks gestation (8,175 - 55,868) 18 weeks gestation (8,[phone] - [phone]) Biotin supplements may cause clinically significant interference for this test assay. ??If interference is suspected, it is strongly recommended that biotin is discontinued for at least one week prior to retesting. Rodger Garrison MD CHEMISTRY Performing Organization Address [facility] Co de Phone Number [facility] [address] [address], * ANTI HIV 1/2 (04/11/2024 11:49 AM CDT) [facility] HIV-1/HIV-2 SCREEN Non-Reacti ve Non-Reacti ve 04/12/2024 2:49 AM CDT [facility] Comment:HIV-1 p24 and HIV-1/ HIV-2 Ab Not Detected. Blood BLOOD SPECIMEN / Unknown Venipuncture / Unknown 04/11/2024 11:49 AM CDT 04/11/2024 11:50 AM CDT Rose Kapadia MD SEND OUTS Performing Organization Address [facility] Co de Phone Number [facility] [address] [address], from Last 3 Months Care Teams User Experience Researcher Relationship Specialty Start Date End Date Brandyn Almaraz PCP - General 10/27/22 N[place] [address] [address] Family Practice 04/11/24
--- OUTSIDE RECORDS SUMMARY | 2024-04-12 17:49 | XMS_ITS | Continuity of Care Document ---
Author Name Unknown Organization [facility] Address [address] [address] [place] [address] Phone Care Team Providers Care Animal Anatomist Name Role Phone Arsen MURPHY, February Unavailable [...] Provider Providers Copied on Encounter [facility], [address] [address], [place], [id number], [place] tel:[phone] [facility] No Information [address] Ar[address] MURPHY February. [address] [facility], [facility] [address], [place], [id number] , [place]. tel:[phone] [facility], [address] [address], [place], [id number], [place] tel:[phone] [facility] No Information 4 Arsen MURPHY February. [address] [facility], [facility] [address], [place], [id number] , [place]. tel:[phone] Offic/outpt E&m Estab Low-mod [facility], [address] [address], [place], [id number], [place] tel:[phone] [facility] Abd Pain GeneralizedAbd Pain Generalized 3 Arsen MURPHY February. [address] [facility], [address], [place], [id number] , [place]. [phone] Referring Provider: Agatha George, [address] [place] [address], [place], [address]. tel:[phone] Offic/outpt E&m Estab Low-mod [facility], [address] [address], [place], [id number], [place] tel:[phone] [facility] Abdominal pain (chief complaint) Abd Pain Generalized Sep-2 6 3 Arsen MURPHY February. [address] [facility], [address], [place], [place], [address] , [place]. [phone] Referring Provider: Agatha George, [address] , [place], [address]. tel:[phone] [facility], [address] [address], [place], [address], [place] tel:[phone] [facility] No Information Sep-0 3 [facility] [address] [facility], [address], [place], [place], [address] , [place]. [phone] Offic/outpt E&m Estab Low-mod [facility], [address] [address], [place], [address], [place] tel:[phone] [facility] Abdominal pain (chief complaint) Abd Pain GeneralizedAbd Pain Generalized March- 3 Arsen MURPHY February. [address] [facility], [address], [place], [place], [address] , [place]. [phone] Referring Provider: Agatha George, [address] , [place], [address]. tel:[phone] Offic/outpt E&m Estab Mod-hi 2 [facility], [address] [address], [place], [address], [place] tel:[phone] [facility] Abdominal pain (chief complaint) Abd Pain GeneralizedAbd Pain Generalized Apr-0 8-201 [address] [facility], [address], [place], [place], [address] , [place]. [phone] Referring Provider: Agatha George, [address] , [place], [address]. tel:[phone] [facility], [address] [address], [place], [address], [place] tel:[phone] [facility] Abd Pain Generalized Mar- 3 Lucila Chopra. [address] [facility] [address], [place], [place], [address] , [place]. tel: [phone] [facility], [address] [address], [place], [address], [place] tel:[phone] [facility] Abd Pain Generalized 3 Lucila Chopra. [address] [facility] [address], [address], [place], [address] , [place]. tel: [phone] [facility], [address] [address], [place], [address], [place] tel:[phone] [facility] No Information 3 Lucila Chopra. [address] [facility] [address], [address], [place], [address] , [place]. tel: [phone] [facility], [address] [address], [place], [address], [place] tel:[phone] [facility] Abd Pain Generalized 3 Lucila Chopra. [address] [facility] [address], [address], [place], [address] , [place]. tel: [phone] Offic Cons New/estab Mod [facility], [address] [address], [place], [address], [place] tel:[phone] [facility] Abdominal pain (chief complaint)Low er back pain (chief complaint)Vom iting, Temp Fluctuations (chief complaint) Abd Pain Generalized 3 Lucila Chopra. [address] [facility] [address], [address], [place], [place], [address] , [place]. tel: [phone] Family History Family Member Type Diagnosis Age [...] Polyps Payers Payer name Insurance type Covered alliance party ID Authoriza tion(s) No Information Social [...]
[2024-04-12 19:08] LABS: Basophils Absolute Auto 0.03 K/uL (0.00-0.30); Basophils Percent Auto 0.3 % (0.0-3.0); Eosinophils Absolute Auto 0.04 K/uL (0.00-0.50); Eosinophils Percent Auto 0.5 % (0.0-7.0); Hematocrit 36.2 % (33.0-51.0); Hemoglobin* 11.8 gm/dL (12.0-16.0); Immature Granulocytes Abs Auto 0.02 K/uL (0.00-0.30); Immature Granulocytes Pct Auto 0.2 %; Lymphocytes Percent Auto 18.6 % (20-44); Mean Corpuscular HGB Conc 33 gm/dL (32-36); Mean Corpuscular Hemoglobin 28 pg (26-34); Mean Corpuscular Volume 85 fL (80-100); Monocytes Percent Auto 7.9 % (0.0-11.0); Neutrophils Percent Auto 72.5 % (42.0-72.0); Platelet Count* 448 K/uL (140-440); RDW Coefficient of Variation % 13.5 % (11.5-15.5); Red Blood Count 4.27 m/uL (4.00-5.20); White Blood Count* 8.78 K/uL (4.50-11.00)
[2024-04-12 19:11] LABS: Slide Review Reflex No
--- NOTE | 2024-04-14 23:33 | ED.NURSE ---
Patient called with c/o spotting. Reviewed discharge instructions with patient. Advised patient that we are unable to provide advice over the phone. Advised patient that they are always welcome to come to the ER.
== END 2024-04-12 19:28 | disposition home or self-care (01) ==
PROVIDERS: Emergency Provider Family Medicine; PCP Surgery
DX: O20.8 Other hemorrhage in early pregnancy (principal); Z3A.08 8 weeks gestation of pregnancy
CPT/HCPCS: 36415; 76817; 84702; 85025; 99284

== ENCOUNTER 2024-04-20 02:26 | Emergency (ER) | payer BC, SELFPAY ==
[2024-04-20 02:31] VITALS: BP 161/85; PULSE 100; RESP 16; TEMP 36.6; O2SAT 97; BMI 35.8
--- OUTSIDE RECORDS SUMMARY | 2024-04-20 05:50 | XMS_ITS | Continuity of Care Document ---
Author Organization [facility] Address [address] [address] [place] [address] Phone Care Team Providers Care Media Consultant Outside Sales Name Role Phone Arsen MURPHY, February Unavailable [...] Diagnoses Date Provider Providers Copied on Encounter [facility], [address] [address], [place], [id number], [place] tel:[phone] [facility] No Information 4 Arsen MURPHY February. [address] [facility], [address], [place], [id number] , [place]. tel: [phone] [facility], [address] [address], [place], [id number], [place] tel:[phone] [facility] No Information 4 Arsen MURPHY February. [address] [facility], [address], [place], [id number] , [place]. tel: [phone] Offic/outpt E&m Estab Low-mod [facility], [address] [address], [place], [id number], [place] tel:[phone] [facility] Abd Pain GeneralizedAbd Pain Generalized 3 Arsen MURPHY February. [address] [facility], [address], [place], [id number] , [place]. tel:[phone] Referring Provider: [facility], [address] [place] [address], [place], [address]. tel:[phone] Offic/outpt E&m Estab Low-mod [facility], [address] [address], [place], [id number], [place] tel:[phone] [facility] Abdominal pain (chief complaint) Abd Pain Generalized Sep-2 6 3 Arsen MURPHY February. [address] [facility], [address], [place], [address] , [place]. [phone] Referring Provider: Agatha George, [address] , [place], [address]. tel:[phone] [facility], [address] [address], [place], [address], [place] tel:[phone] [facility] No Information Sep-0 3 Jorge MURPHY [facility] [address] [facility], [address], [place], [address] , [place]. [phone] Offic/outpt E&m Estab Low-mod [facility], [address] [address], [place], [address], [place] tel:[phone] [facility] Abdominal pain (chief complaint) Abd Pain GeneralizedAbd Pain Generalized 3 Arsen MURPHY February. [address] [facility], [place], [address] , [place]. [phone] Referring Provider: Agatha George, [address] , [place], [address]. tel:[phone] Offic/outpt E&m Estab Mod-hi 2 [facility], [address] [address], [place], [address], [place] tel:[phone] [facility] Abdominal pain (chief complaint) Abd Pain GeneralizedAbd Pain Generalized Apr-0 8201 3 Lucila MURPHY Nav. [address] [facility], [address], [place], [address] , [place]. tel:[phone] Referring Provider: Agatha George, [address] , [place], [address]. tel:[phone] [facility], [address] [address], [place], [address], [place] tel:[phone] [facility] Abd Pain Generalized Mar- 4-201 3 Lucila Chopra. [address] [facility] [address], [place], [place], [address] , [place]. tel: [phone] [facility], [address] [address], [place], [address], [place] tel:[phone] [facility] Abd Pain Generalized Jan-0 3 Lucila Chopra. [address] [facility] [address], [address], [place], [address] , [place]. tel: [phone] [facility], [address] [address], [place], [address], [place] tel:[phone] [facility] No Information Dec- 3 Lucila Cohpra. [address] [facility] [address], [address], [place], [place], [id number] , [place]. tel: [phone] [facility], [address] [address], [place], [address], [place] tel:[phone] [facility] Abd Pain Generalized 3 Lucila Chopra. [address] [facility] [address], [address], [place], [address] , [place]. tel: [phone] Offic Cons New/estab Mod [facility], [address] [address], [place], [address], [place] tel:[phone] [facility] Abdominal pain (chief complaint)Low er back pain (chief complaint)Vom iting, Temp Fluctuations (chief complaint) Abd Pain Generalized 3 Lucila Chopra. [address] [facility] [address], [address], [place], [address] , [place]. tel: [phone] Family History Family Member Type Diagnosis Age [...] Polyps Payers Payer name Insurance type Covered democrat ID Authoriza tion(s) No Information Social History [...]
--- OUTSIDE RECORDS SUMMARY | 2024-04-20 05:51 | XMS_ITS | Clinical Summary ---
Author Organization [employer] [facility] Address [place], [place] [address] Care Team Providers Care Refrigeration Service Inspector Name Role Phone Riverside[facility] Primary Care Provider Unavail able Nia Pritchard DO Unavailable [phone] Allergies Active Allergy Reactions Criticality Noted Date Comments Amoxicillin-Pot Clavulanate Rash 01/04/2015 Clindamycin Paresthesias 08/07/2015 Diatrizoate Allergen Hives,Shortness Of Breath 12/06/2008 CT contrast Sumatriptan Hives,Shortness Of Breath 09/21/2013 Also had tingling in arms and head. Iodine Hives 07/18/2015 Cephalexin Shortness Of Breath 07/08/2014 See ER notes from 05-10-14, med reaction vs conversion disorder Jtgbxdd-Pwbzkcqgl-Ssz taminophn Rash 09/28/2014 Adhesive Rash 07/18/2015 Skin [...] for Nausea/Vomiti ng. 30 Tablet 04/01/2024 Active 03-whmx-jidkij 6-dha 30 mg iron-1mg -200 mg cap [...] patient of Preferred name: Pili Language/cultural preferences: New Zealander OB HISTORY / PERTINENT MEDICAL HISTORY: Dating [...] present) Problem Noted Resolved 04/11/2024 by Ros Desir RN No Social History : FOB/Spouse: Children: [...] Contraception: Mild persistent asthma without complication 11/2018 Conversion disorder 07/18/2015 Chronic headaches 04/12/2015 Overview: Referred to as daily headaches at [place]; [facility]; mother refers to them as cluster headaches but no documentation found with that diagnosis. Learning disability 08/15/2014 Speech delay 08/15/2014 Anxiety 10/15/2013 POTS (postural orthostatic tachycardia syndrome) Estimated Date of Delivery Comme nts Yes 12/16/2024 Based on Ultraso und Resolved Problems Problem Noted Date Diagnosed Date Resolved Date Recurrent streptococcal tonsillitis 09/04/2015 04/18/2024 Clostridium difficile enteritis 08/15/2014 04/18/2024 Body temperature low 02/07/2013 024 Unspecified constipation 03/22/2010 Encounters Date Type Department Care Team Description 04/18/2024 9:10 AM CDT OB Encounter [facility] [address] [place] [address] Nia Pritchard, Care (5wk 6 days per ED US on 04/12. Bleeding has gotten better, only when wiping. Cramps have improved as well) 04/18/2024 7:30 AM CDT - 04/18/2024 11:59 PM CDT Hospital Encounter [facility] [address] [place] [address] Rose Kapadia MD Encounter for supervision of other normal in first trimester 04/18/2024 Travel 04/12/2024 Orders Only [facility] SERVICES Scanner 1 scan: (1-Ord) [facility] OB TRANSVAGINAL , 04/12/2024 04/11/2024 10:40 AM CDT OB Encounter [facility] [address] [facility] [place] [address] Education (Ob intake) 04/11/2024 Travel 04/08/2024 10:00 AM CDT Orders Only [facility] [address] [place] [address] Lab, [place] Lab 04/08/2024 Travel 04/06/2024 Telephone [facility] [address] [place] [address] Nia Pritchard, DO Questions (//HIGH RISK); Appointment () 04/04/2024 10:00 AM CDT Orders Only [facility] [address] [facility] [place] [address] Lab, [place] Lab 04/04/2024 Travel 04/01/2024 2:25 PM CDT Office Visit [facility] [address] [place] [address] Rodger Garrison MD Confirmation (Positive test at [...] Asthma Maternal Grandfather Heart Disease Maternal Grandfather CA wit h stents placed Asthma Maternal Grandmother [...] Housing in the Last Year 1 08/21/2023 Estimated Date of Delivery Comme nts Yes 12/16/2024 Based on Ultraso und Sex and Gender Information Value Date Recorded Sex Assigned at Not on file Gender Identity Not on file Sexual Orientation Not on file Obstetrics History Para Term AB IAB SAB Ectopic Multiple Livin g Live Births 4 0 0 0 3 0 2 1 0 0 Date Outcome GA Total Labor Labor/2nd/3rd Weight Sex Delivery Anes PTL Amisha A1 A5 Name Cl in 02/06 Ectopic 10/19 21 SAB 08/19 23 SAB Current Summary Episode Dates Number of Fetuses Estimated Date of Delivery 04/11/2024 - Present (04/20/2024) 12/16/2024 (set by Nia Pritchard DO on 04/18/2024 based on Ultrasound on 04/18/2024) Dating Summary Based On JENELLE GA Diff Last Menstrual Period (LMP Unknown) Ultrasound on 04/18/2024 12/16/2024 Working GA:5w3d Vitals Pregravid Weight Height TWG (As of 04/20/2024) Pregrav id BMI 1.681 m (5' 6.2) Date GA Fund Present FHR Mvmt BP Weight Edema Alb Glu Ket Dil/ Eff/Sta 4 5w3d Inpatient data not displayed here. See encounter summary. Notes Progress Notes - OB Encounte r - 04/18/2024 - GA:5w3d 04/18/2024 - 5w3d - Nia Pritchard DO FIRST OB VISIT HPI: Pili Cavazos is a 24 y.o. female at Unknown with hagen intrauterine here today for a initial OB exam. She is here with her spouse, Mansi. Estimated due date is Estimated Date of Delivery: 12/16/2024 based on ultrasound dating from today. Nausea. One episode of vomiting. Mild cramping, not bad at all. Having some light brown blood per vagina that is becoming less. FOB notes he has a hx of bicuspid aortic valve. Has history of 3 losses - all have been first trimester early losses, before 10 weeks. Had ectopic in 2017. Other two miscarriages she has passed at home. Nausea/Vomiting: yes Breast tenderness: yes Fatigue: yes Bleeding: yes Taking vitamins: yes Options of sequential screen, cell-free DNA testing, amniocentesis were discussed. Patient is interested in pursuing testing. MENSTRUAL HISTORY LMP: unknown, Menses: irregular Control at the time of conception: NO NEONATOLOGIST HX: No history of abnormal pap smears. No history of STIs OB History Para Term AB Living 4 0 0 0 3 0 SAB IAB Ectopic Multiple Live Births 2 0 1 0 # Outcome Date GA Lbr Carlitos/2nd Weight Sex Delivery Anes PTL Lv 4 Current 3 SAB 07/2023 2 SAB 09/2021 1 Ectopic 02/06/17 Past Medical History: . Date Asthma 2016 childhood Clostridium difficile enteritis 08/15/2014 Frequent headaches Consult with Neurology 09/04/2014 [facility] History of intrauterine in previous POTS (postural orthostatic tachycardia syndrome) 09/30/2014 Recurrent streptococcal tonsillitis 09/04/2015 Unspecified constipation 03/22/2010 Urinary tract infection Past Surgical History: . Laterality Date ECTOPIC SURGERY 01/2017 ESOPHAGOGASTRODUODENOSCOPY 08/30/2016 Normal TONSIL AND ADENOIDECTOMY 2015 Family History Problem Relation Age of Onset Other Mother migraines Asthma Mother Rheum arthritis Mother Good Health Father Good Health Brother Good Health Brother Asthma Maternal Grandmother Cancer Maternal Grandmother Heart Disease Maternal Grandfather CA with stents placed Asthma Maternal Grandfather Heart Disease Paternal Grandfather has a pacemaker Anesthesia Problem No Family History Blood Disease No Family History Social History Tobacco Use Smoking status: Never Smokeless tobacco: Never Tobacco comments: No exposure Substance Use Topics Alcohol use: No Alcohol/week: 0.0 standard drinks of alcohol Current Outpatient Medications Medication Sig albuterol HFA (PRO-AIR; VENTOLIN; PROVENTIL) 90 mcg/actuation inhaler Inhale 2 Puffs by mouth every 4 hours if needed (cough). ondansetron (ZOFRAN ODT) [address] 1 Tablet (4 mg) on the tongue every 8 hours if needed for Nausea/Vomiting. 32-dvnf-gbwkhd 6-dha 30 mg iron-1mg -200 mg cap Take by mouth. No current facility-administered medications for this visit. Medications have been reviewed by me and are current to the best of my knowledge and ability. ALLERGIES Augmentin [amoxicillin-pot clavulanate], Clindamycin, Diatrizoate allergen, Imitrex [sumatriptan], Iodine, Keflex [cephalexin], Midrin [caytemj-ocqlycvzw-kmvganjlvlqy], and Paper tape [adhesive] MENTAL HEALTH HISTORY History of psychiatric diagnosis: Anxiety Current mental health provider: not applicable Currently taking any psychiatric medications? No REVIEW OF SYSTEMS Comprehensive ROS complete and negative other than noted in HPI and on OB Questionnaire. PHYSICAL EXAM BP 112/77 (Cuff Site: Left Arm, Position: Sitting, Cuff Size: Adult Large) Pulse 98 Wt 100.9 kg (222 lb 6.4 oz) LMP (LMP Unknown) BMI 35.68 kg/m?? General: Pleasant female in no acute distress, alert and appropriate HEENT: Conjunctiva clear, nares patent, TMs normal, mucous membranes moist Neck: No lymphadenopathy or thyromegaly Heart: Regular rate and rhythm Lungs: breathing comfortably on room air, CTA b/l Abdomen: Nontender. : patient declined Extremities: No edema Skin: No concerning lesions Psych: mood and affect appropriate, mildly anxious Ultrasound #1: 5 weeks JENELLE: 12/16/24 ASSESSMENT/PLAN Normal first visit. 1. Discussed orientation,general information,lifestyle,nutrition,exercise,warning signs,resources,lab testing,risk screening. Questions answered. 2. Typical remaining course reviewed. 3. Labor signs/warning signs reviewed. 4. Appropriate weight gain during and healthy eating/exercise reviewed at length. 5. Ultrasound for dating reviewed today - 5w3d without FHR; plan to repeat US in 7-10 days. 6. Reviewed labs. 7. Discussed risks versus benefits of CF-DNA screening - patient is interested in this; plan to obtain Kya after 9 weeks' gestation 8. Followup in 4 weeks, sooner if needed 9. Obesity + nulliparity - plan to start ASA for pre-E ppx between 12-16 weeks Progress Notes - OB Encounte r - 04/11/2024 - GA:4w3d 04/11/2024 - 4w3d - Ros Desir RN SUBJECTIVE: Pili Cavazos is a 24 y.o. female, , who presents for confirmation and ob education. 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 [...] childhood Frequent headaches Consult with Neurology 09/04/2014 [facility] History of intrauterine in previous POTS [...] of estimated date of delivery: No Thalassemia (Trinidadian, Bulgarian, Mediterranean, or background): MCV less than 80: No Neural tube defect (Meningomyelocele, Spina bifida, or Anencephaly): Yes (Comment: second cousin, mom's side spinabifida) Congenital heart defect: Yes (Comment: Dad, bicuspid aortic valve) Down syndrome: No Allan-Sachs (Ashkenazi Alevism, Cajun, Serbian Kittitian): No Dulce disease (Ashkenazi Alevism): No Familial dysautonomia (Ashkenazi Alevism): No Sickle cell disease or trait (): No Hemophilia or other blood disorders: No Muscular dystrophy: No Cystic fibrosis: No John's chorea: No Intellectual disability and/or autism: No [...] every 8 hours if needed for Nausea/Vomiting. 67-nekl-evmmdv 6-dha 30 mg iron-1mg -200 mg cap Take by mouth. No current facility-administered medications for this visit. Medications have been reviewed by me and are current to the best of my knowledge and ability. ALLERGIES: Augmentin [amoxicillin-pot clavulanate], Clindamycin, Diatrizoate allergen, Imitrex [sumatriptan], Iodine, Keflex [cephalexin], Midrin [auuxuqe-buqwypbhu-jzntrlsdonma], and Paper tape [adhesive] OBJECTIVE: LMP (LMP Unknown) ,URINE (no units) Date Value 10/28/2021 Negative ASSESSMENT/PLAN: ICD-10-CM 1. Encounter for supervision of other normal in first trimester Z34.81 CBC W PLT NO DIFF ANTI HIV 1/2 URINE CULTURE TYPE AND SCREEN RUBELLA IMMUNE STATUS TREPONEMA PALLIDUM HBSAG (HBS) ANTI HCV NEONATOLOGIST PROBE - GC CHLAMYDIA DNA PCR [[id number]] URINALYSIS W REFLEX MICROSCOPIC IF POSITIVE [89287.2] US 1ST TRIMESTER (< 14 weeks) [47432.0] EDUCATION/PATIENT INSTRUCTIONS - Advised patient to start/continue vitamin. - Discussed risk of using alcohol, tobacco, other drugs in . - Discussed healthy lifestyle in . - Provided copy of Beginnings book and book inserts, discussed lbyx-juy-thihwcj medications, and follow up. 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 Respiratory Rate 20 09/17/2015 11:3 8 AM CDT Oxygen Saturation 99% 04/01/2024 2:34 PM CDT Inhaled Oxygen Concentration - - Weight 100.9 kg (222 lb 6.4 oz) 04/18/2024 9:07 AM CDT Height 168.1 cm (5' 6.2) 04/11/2024 11 :41 AM CDT Body Mass Index 35.68 04/11/2024 11:41 AM CDT Plan of Treatment Upcoming Encounters Date Type Department Care Team (Late st Contact Info) Description 05/16/2024 8:45 AM CDT OB Encounter [facility] [address] [place] [address] Nia Pritchard, [address] [place] [address] Health Maintenance Due Date Last Done Comments [...] Procedure Name Priority Date/Time Associated Diagnosis Comments US OB 1ST TRI SINGLE TA AND TV Routine 04/18/2024 8:15 AM CDT Encounter for supervision of other normal in first trimester SCAN-ULTRASOUND REPORT 04/12/2024 12:00 AM CDT UA W/ SEDIMENT EXAM REFLEXED PER CRITERIA Routine 04/11/2024 11:53 AM CDT Encounter for supervision of other normal in first trimester GC CHLAMYDIA TRACH PROBE Routine 04/11/2024 11:53 AM CDT Encounter for supervision of other normal in first trimester URINE CULTURE Routine 04/11/2024 11:53 AM CDT Encounter for [...] test from Last 3 Months Results * US OB 1ST TRI SINGLE TA AND TV (04/18/2024 8:15 AM CDT) Anatomical Region Laterality Modality Ultrasound 04/18/2024 8:40 AM CDT Impressions 04/18/2024 8:40 AM CDT Small gestational sac with a possible early embryo although cardiac activity could not be definitively confirmed. Mean gestational sac size would be equivalent to a gestational age of 5 weeks 3 days. Consider a followup ultrasound in 7-10 days. Dictated by Adalgisa Adams MD @ 04/18/2024 8:40:42 AM (Electronically Signed) Narrative 04/18/2024 8:40 AM CDT For Patients: ??As a result of the Cures Act, medical imaging exams and procedure reports are released immediately into your electronic medical record. ??You may view this report before your referring provider. ??If you have questions, please contact your health care provider. INDICATION: Supervision of normal . TECHNIQUE: Ultrasound OB transabdominal and transvaginal. COMPARISON: None. FINDINGS: There is a centrally positioned intrauterine gestational sac. Mean gestational sac diameter 0.8 cm, ultrasound gestational age 5 weeks 3 days. Possible early embryo measuring 0.5 cm, 6 weeks 2 days. The heart rate is difficult to confirm at this time. No yolk sac identified. No apparent subchorionic hemorrhage or uterine wall abnormality. Left maternal ovary normal. Right maternal ovary not visualized. Procedure Note Kip Adams MD - 04/18/2024 For Patients: As a result of the Cures Act, medical imagingexams and procedure reports are released immediately into your electronicmedical record. You may view this report before your referring provider.If you have questions, please contact your health care provider. INDICATION: Supervision of normal . TECHNIQUE: Ultrasound OB transabdominal and transvaginal. COMPARISON: None. FINDINGS: There is a centrally positioned intrauterine gestational sac. Meangestational sac diameter 0.8 cm, ultrasound gestational age 5 weeks 3days. Possible early embryo measuring 0.5 cm, 6 weeks 2 days. The heartrate is difficult to confirm at this time. No yolk sac identified. Noapparent subchorionic hemorrhage or uterine wall abnormality. Left maternal ovary normal. Right maternal ovary not visualized. IMPRESSION: Small gestational sac with a possible early embryo although cardiacactivity could not be definitively confirmed. Mean gestational sac sizewould be equivalent to a gestational age of 5 weeks 3 days. Consider afollowup ultrasound in 7-10 days. Dictated by Adalgisa Adams MD @ 04/18/2024 8:40:42 AM (Electronically Signed) Rose Kapadia MD US * SCAN-ULTRASOUND REPORT (04/12/2024 12:00 AM CDT) Anatomical Region Laterality Modality Other Scanner OTHER * NEONATOLOGIST PROBE - GC CHLAMYDIA DNA PCR [[id number]] (04/11/2024 11:53 AM CDT) CHLAMYDIA PROBE Negative 2:47 AM CDT [facility] N GONORRHOEAE PROBE Negative 04/12/2024 2:47 AM CDT [facility] Other URINE SPECIMEN / Unknown Non-Blood / Unknown 04/11/2024 11:53 AM CDT 04/11/2024 11:53 AM CDT Rose Kapadia MD [facility] [address] [place] [address], [place] * URINE CULTURE (04/11/2024 11:53 AM CDT) CULTURE <10,000 CFU/mL multiple organisms 04/13/2024 8:22 AM CDT [facility] Urine URINE SPECIMEN / Unknown Non-Blood / Unknown 04/11/2024 11:53 AM CDT 04/11/2024 11:53 AM CDT Rose Kapadia MD [facility] [address] [place] [address], * URINALYSIS W REFLEX MICROSCOPIC IF POSITIVE [44429.2] (04/11/2024 11:53 AM CDT) COLOR Yellow Yellow Color 04/11/2024 12:00 PM CDT [facility] CLARITY Clear Clear Clarity 04/11/2024 12:00 PM CDT [facility] SPECIFIC GRAVITY,URINE 1.020 1.010, 1.015, 1.020, 1.025 04/11/2024 12:00 PM CDT [facility] PH,URINE 6.0 6.0, 7.0, 8.0, 5.5, 6.5, 7.5, 8.5 04/11/2024 12:00 PM CDT [facility] UROBILINOGEN, QUALITATIVE Normal Normal EU/dl 04/11/2024 12:00 PM CDT [facility] PROTEIN, URINE Negative Negative mg/dL 04/11/2024 12:00 PM T [facility] GLUCOSE, URINE Negative Negative mg/dL 04/11/2024 12:00 PM CDT [facility] KETONES,URINE Negative Negative mg/dL 04/11/2024 12:00 PM CDT [facility] BILIRUBIN,URI NE Negative Negative 04/11/2024 12:00 PM CDT [facility] OCCULT BLOOD,URINE Negative Negative 04/11/2024 12:00 PM CDT [facility] NITRITE Negative Negative 04/11/2024 12:00 PM CDT [facility] LEUKOCYTE ESTERASE Negative Negative 04/11/2024 12:00 PM CDT [facility] Urine URINE SPECIMEN / Unknown Non-Blood / Unknown 04/11/2024 11:53 AM CDT 04/11/2024 11:53 AM CDT Rose Kapadia MD URINE [facility] [address] [place] [address], * TREPONEMA PALLIDUM (04/11/2024 11:49 AM CDT) TREPONEMA PALLIDUM Non-Reacti ve Non-Reacti ve 04/12/2024 2:55 AM CDT [facility] Blood BLOOD SPECIMEN / Unknown Venipuncture / Unknown 04/11/2024 11:49 AM CDT 04/11/2024 11:50 AM CDT Rose Kapadia MD SEND OUTS [facility] [address] [place] [address], * RUBELLA IMMUNE STATUS (04/11/2024 11:49 AM CDT) INTERPRETATION Positive 04/12/2024 7:52 AM CDT [facility] Comment:Presence of detectab le IgG antibodies. A positive result generally indicates exposure to the virus or previous vaccination, but is not an indication of active infection or stage of disease. RUBELLA IGG ANTIBODY 1.42 >=1.00 Index 04/12/2024 7:52 AM CDT [facility] Blood BLOOD SPECIMEN / Unknown Venipuncture / Unknown 04/11/2024 11:49 AM CDT 04/11/2024 11:50 AM CDT Narrative [facility] - 04/12/2024 7:52 AM CDT ??<0.90 ? Negative ?? 0.90-0.99 ?? Equivocal >=1.0 ?Positive Rose Kapadia MD SEND OUTS Performing Organization Address City/[facility]/ZIP Co de Phone Number [facility]-CENTRAL LABORATORY [address] [place] [address], * TYPE AND SCREEN (04/11/2024 11:49 AM CDT) Pathologist [facility] ABORH A Rh Positive 04/11/2024 10:13 PM CDT [facility] LAB-CENTRAL LAB BLOOD BANK ANTIBODY SCREEN Negative Negative 04/11/2024 10:13 PM CDT [facility]-CENTRAL LAB BLOOD BANK SPECIMEN EXPIRATION DATE/TIME 04/14/24 23:59 04/11/2024 10:13 PM CDT [facility]-CENTRAL LAB BLOOD BANK Blood BLOOD SPECIMEN / Unknown Venipuncture / Unknown 04/11/2024 11:49 AM CDT 04/11/2024 11:50 AM CDT Rose aKpadia MD BLOOD BANK Performing Organization Address [facility] Co de Phone Number [facility] LAB BLOOD BANK [address] [place] [address], * HBSAG (HBS) (04/11/2024 11:49 AM CDT) Pathologist [facility] HBSAG Nonreactive Nonreactive 04/12/2024 2:49 AM CDT [facility] Blood BLOOD SPECIMEN / Unknown Venipuncture / Unknown 04/11/2024 11:49 AM CDT 04/11/2024 11:50 AM CDT Rose Kapadia MD SEND OUTS Performing Organization Address City/[facility]/ZIP Co de Phone Number [facility] [address] [place] [address], * ANTI HCV (04/11/2024 11:49 AM CDT) Pathologist [facility] HEPATITIS C ANTIBODY Non-Reacti ve Non-React suly 04/12/2024 4:07 AM CDT [facility] Comment:Please note, per www .CDC.gov: [...] AM CDT Rose Kapadia MD SEND OUTS [facility] LAB[facility]AL LABORATORY [address] [place] [address], * CBC W PLT NO DIFF (04/11/2024 11:49 AM CDT) WHITE BLOOD COUNT 7.0 4.5 - 11.0 thou/cu mm 04/11/2024 11:59 AM CDT [facility] RED BLOOD COUNT 4.28 4.00 - 5.20 mil/cu mm 04/11/2024 11:59 AM CDT [facility] HEMOGLOBIN 12.1 12.0 - 16.0 g/dL 04/11/2024 11:59 AM CDT [facility] HEMATOCRIT 36.1 33.0 - 51.0 % 04/11/2024 11:59 AM CDT [facility] MCV 84 80 - 100 fL 04/11/2024 11:59 AM CDT [facility] MCH 28.3 26.0 - 34.0 pg 04/11/2024 11:59 AM CDT [facility] MCHC 33.5 32.0 - 36.0 g/dL 04/11/2024 11:59 AM CDT [facility] RDW 14.2 11.5 - 15.5 % 04/11/2024 11:59 AM CDT [facility] PLATELET COUNT 436 140 - 440 thou/cu mm 04/11/2024 11:59 AM CDT [facility] MPV 8.9 6.5 - 11.0 fL 04/11/2024 11:59 AM CDT [facility] Blood BLOOD SPECIMEN / Unknown Venipuncture / Unknown 04/11/2024 11:49 AM CDT 04/11/2024 11:50 AM CDT Rose Kapadia MD HEMATOLOGY [facility] [address] [place] [address], [place] [phone] * HCG BETA QUANT, (04/11/2024 11:49 AM CDT) Only the most recent of4 resultswithin the time period is included. [facility] HCG BETA QUANT,PREGNANC Y 875 mIU/mL 04/12/2024 2:41 AM CDT [facility] Blood BLOOD SPECIMEN / Unknown Venipuncture / Unknown 04/11/2024 11:49 AM CDT 04/11/2024 11:50 AM CDT [facility] LABORATORY-CENTRAL LABORATORY - 04/12/2024 2:41 AM CDT Expected [...] prior to retesting. Rodger Garrison MD CHEMISTRY [facility] LAB[facility]ATORY [address] [place] [address], [place] * ANTI HIV 1/2 (04/11/2024 11:49 AM CDT) HIV-1/HIV-2 SCREEN Non-Reacti ve Non-Reacti ve 04/12/2024 2:49 AM CDT [facility] Comment:HIV-1 p24 and HIV-1/ HIV-2 Ab Not Detected. Blood BLOOD SPECIMEN / Unknown Venipuncture / Unknown 04/11/2024 11:49 AM CDT 04/11/2024 11:50 AM CDT Rose Kapadia MD SEND OUTS [facility] [address] [place] [address], [place] from Last 3 Months Care Teams Refrigeration Service Inspector Relationship Specialty Start Date End Date Brandyn Almaraz PCP - General 10/27/22 Nia Pritchard DO [address] [facility] [place] [address] Family Practice 04/11/24
--- OUTSIDE RECORDS SUMMARY | 2024-04-20 05:53 | XMS_ITS | Continuity of Care Document ---
Author Organization [facility] Address [address] [address] [place] [address] Phone Care Team Providers Care Global Product Manager Name Role Phone Arsen MURPHY, February [...] Diagnoses Date Provider Providers Copied on Encounter [facility], [address] [address], [place], [id number], [place] tel:[phone] [facility] No Information 4 Arsen MURPHY February. [address] [facility], [place], [id number] , [place]. tel: [phone] [facility], [address] [address], [place], [id number], [place] tel:[phone] [facility] No Information 4 Arsen MURPHY February. [address] [facility], [place], [id number] , [place]. tel: [phone] Offic/outpt E&m Estab Low-mod [facility], [address] [address], [place], [id number], [place] tel:[phone] [facility] Abd Pain GeneralizedAbd Pain Generalized 3 Arsen MURPHY February. [address] [facility], [place], [id number] , [place]. [phone] Referring Provider: [facility], [address] [place] [address], [place], [address]. tel:[phone] Offic/outpt E&m Estab Low-mod [facility], [address] [address], [place], [id number], [place] tel:[phone] [facility] Abdominal pain (chief complaint) Abd Pain Generalized Sep-2 6 3 Arsen MURPHY February. [address] [facility], [place], [place], [id number] , [place]. [phone] Referring Provider: Agatha George, [address] , [place], [address]. tel:[phone] [facility], [address] [address], [place], [place], [id number], [place] tel:[phone] [facility] No Information Sep-0 3 [facility] [address] [facility], [place], [place], [id number] , [place]. [phone] Offic/outpt E&m Estab Low-mod [facility], [address] [address], [place], [id number], [place] tel:[phone] [facility] Abdominal pain (chief complaint) Abd Pain GeneralizedAbd Pain Generalized 3 Arsen MURPHY February. [address] [facility], [place], [place], [id number] , [place]. [phone] Referring Provider: Agatha George, [address] , [place], [address]. tel:[phone] Offic/outpt E&m Estab Mod-hi 2 [facility], [address] [address], [place], [id number], [place] tel:[phone] [facility] Abdominal pain (chief complaint) Abd Pain GeneralizedAbd Pain Generalized Apr-0 8201 3 Lucila MURPHY Nav. [address] [facility], [place], [place], [id number] , [place]. tel:[phone] Referring Provider: Agatha George, [address] , [place], [address]. tel:[phone] [facility], [address] [address], [place], [id number], [place] tel:[phone] [facility] Abd Pain Generalized Mar- 4-201 3 Lucila Chopra. [address] [facility], [place], [place], [id number] , [place]. tel: [phone] [facility], [address] [address], [place], [id number], [place] tel:[phone] [facility] Abd Pain Generalized Jan-0 3 Lucila Chopra. [address] [facility] [address], [address], [place], [place], [id number] , [place]. tel: [phone] [facility], [address] [address], [place], [id number], [place] tel:[phone] [facility] No Information Dec- 3 Lucila Chopra. [address] [facility] [address], [address], [place], [id number] , [place]. tel: [phone] [facility], [address] [address], [place], [id number], [place] tel:[phone] [facility] Abd Pain Generalized 3 Lucila Chopra. [address] [facility] [address], [place], [id number] , [place]. tel: [phone] Offic Cons New/estab Mod [facility], [address] [address], [place], [id number], [place] tel:[phone] [facility] Abdominal pain (chief complaint)Low er back pain (chief complaint)Vom iting, Temp Fluctuations (chief complaint) Abd Pain Generalized 3 Lucila Chopra. [address] [facility], [place], [place], [id number] , [place]. tel: [phone] Family History Family Member Type Diagnosis Age [...]
--- NOTE | 2024-04-20 06:31 | ED_ITS ---
HPI - General Adult General Chief complaint: Vaginal Bleeding Stated complaint: x History of Present Illness HPI narrative: Downtime documentation on Pili Cavazos 24-year-old 4 para 0 with 1 prior ectopic and 2 prior spontaneous miscarriages presents to the ED with spontaneous brown vaginal spotting, not heavy.? No injury or trauma.? No fever.? No crampy pain.? Has been seen in the ED a week ago per her report.? And single 10 gestational sac within the uterus confirmed at that time.? Patient has also had a follow-up less than 48 hours ago with her Ob provider and had a ultrasound performed at that time.? This showed a single 10 gestational sac, heart rate could not yet be found but gestation was estimated at 6 weeks and 2 days.? To prior miscarriages have been before 10 weeks time.? Provider notes are reviewed.? Patient states that she had spotting 3 days ago, brown in nature.? The bleeding had ceased and she started spotting again at 1:30 a.m. this morning, becoming concerned in coming to the emergency room.? No heavy bleeding, no rib bright red bleeding, no pain.? No other worrisome symptoms.? Blood type known to be A positive from outside records.? Patient has follow-up ultrasound ordered for 7-10 days from now.? Patient has not scheduled this appointment. She states her past medical history is otherwise benign, no major long-term health problems no prescription medications. Outside OB and ultrasound records reviewed. ROS is otherwise negative times 12 systems today. On exam, vital signs stable, reviewed from nursing triage notes.? Generally she is awake alert, pleasant and interactive mildly anxious, supportive partner present.? Head appears atraumatic eyes with normal visual gaze oropharynx with acyanotic lips, moist membranes.? Breathing is unlabored with normal respiratory effort, able to speak in full sentences.? Abdomen is soft, benign, fundal height not palpable.? Cervical exam showing normal external genitalia, speculum exam gently performed showing what looks to be a multiparous cervix with slit-like distal opening, active hormonal appearance with mucus and slightly brown tinged discharge, no bright red bleeding, clots or contents.? No tenderness. Lower extremities normal in appearance with no significant edema skin warm and well perfused with no rashes.? Mood behavior and affect are appropriate. ED course:? Cervical exam is essentially reassuring, no severe bleeding.? Blood type known to be A positive.? Confirmed intrauterine from just a couple of days ago.? Counseled patient that I recommend we do no further workup today, rationale discussed.? Unfortunately, there is no reassurance I could give her at the bedside that would be able to tell us if there is a definite miscarriage or healthy .? We do not have ultrasound available overnight and it can be called in for emergency situations but since she has a known intrauterine and no signs of severe hemorrhage, this is not indicated.? She was understanding of this.? I would like for her to call her Ob provider in the morning and make an appointment for the ultrasound that is already planned for next week.? At this point we should be able to find an active heart rate.? She should send a [employer] message to her Ob provider letting her know about the spotting, the reassuring exam and the provider can decide if she wants to continue to follow hCG quant levels.? This was discussed with patient.? She will plan to start aspirin at 12 weeks as her provider has outlined.? Alarm symptoms reviewed that would warrant ED presentation.? She verbalizes understanding and agreement.? Will be discharged home with outpatient follow-up and written instructions. Diagnosis:? Spotting in early Related Data Home Medications ?Medication ?Instructions ?Recorded ?Confirmed No Known Home Medications 10/27/22 08/19/23 Allergies Allergy/AdvReac Type Severity Reaction Status Date / Time acetaminophen [From Midrin] Allergy Unknown Verified 08/19/23 00:02 amoxicillin [From Augmentin] Allergy Unknown Verified 08/19/23 00:02 cephalexin [From Keflex] Allergy Unknown Verified 08/19/23 00:02 clavulanic acid Allergy Unknown Verified 08/19/23 00:02 [From Augmentin] clindamycin Allergy Unknown Verified 08/19/23 00:02 dichloralphenazone Allergy Unknown Verified 08/19/23 00:02 [From Midrin] iodine Allergy Unknown Verified 08/19/23 00:02 isometheptene [From Midrin] Allergy Unknown Verified 08/19/23 00:02 sumatriptan [From Imitrex] Allergy Unknown Verified 08/19/23 00:02 ct contrast dye Allergy Severe Difficulty Uncoded 10/27/22 18:13 Breathing paper tape Allergy tore skin Uncoded 11/28/22 18:13 off [facility] Medical History No significant past medical history Surgical History No significant past surgical history Social History Smoking Status: Never smoker Do you use any of these nicotine containing products: None Second hand tobacco smoke exposure: No How often do you have a drink containing alcohol: never How often do you have six or more drinks on one occasion: Never AUDIT-C Alcohol total score: 0 Non-prescribed substance use: denies use service: No Exam Const: Vital Signs, click to edit/add: Vital Signs - 24 hr 04/20/24 02:31 Temperature 97.9 F Pulse Rate [Pulse Oximeter] 100 Respiratory Rate 16 Blood Pressure [Ri ght Upper Arm] 161/85 H Pulse Oximetry 97 Oxygen Delivery Me thod Room Air Course Vital Signs Vital signs: Initial Vital Signs Temperature 97.9 F 04/20/24 02:31 Temperature Source Temporal Artery Scan 04/20/24 02:31 Pulse Rate 100 04/20/24 02:31 Pulse Rhythm Regular 04/20/24 02:31 Pulse Strength 0+ Absent 04/20/24 02:31 Respiratory Rate 16 04/20/24 02:31 Blood Pressure 161/85 H 04/20/24 02:31 Blood Pressure Mean 110 H 04/20/24 02:31 Blood Pressure Position Sitting 04/20/24 02:31 Pulse Oximetry 97 04/20/24 02:31 Oxygen Delivery Method Room Air 04/20/24 02:31 Vital Signs Temperature 97.9 F 04/20/24 02:31 Pulse Rate 100 04/20/24 02:31 Respiratory Rate 16 04/20/24 02:31 Blood Pressure 161/85 H 04/20/24 02:31 Pulse Oximetry 97 04/20/24 02:31 Oxygen Delivery Method Room Air 04/20/24 02:31 Temperature 97.9 F 04/20/24 02:31 Pulse Rate 100 04/20/24 02:31 Respiratory Rate 16 04/20/24 02:31 Blood Pressure 161/85 H 04/20/24 02:31 Pulse Oximetry 97 04/20/24 02:31 Oxygen Delivery Method Room Air 04/20/24 02:31 Discharge Plan Discharge Clinical Impression: First trimester bleeding Patient Disposition: Home w/ Parent or Adult Condition: Stable Additional Instructions: ?Discharge instructions on Pili Cavazos ?Unfortunately, the computer system is down for routine maintenance.? Therefore, your discharge instructions look a little different than typical. As we discussed, your cervix is closed and there are no signs of heavy bleeding today.? The ultrasound that you had performed yesterday is reviewed.? This showed a within the uterus, therefore I am not concerned about the potential for ectopic .? The brown spotting is not necessarily indicative of a miscarriage and could be reflective of the previously seen subchorionic hemorrhage or even a new 1.? Unfortunately, this spotting can be intermittent.? I am sorry that I cannot give you more reassurance or confirmation of the health of this .? At this time, things do look okay. I would like for you to call your OB providers office to schedule the planned ultrasound for 7-10 days from now.? Send a [employer] message to your provider within update for the brown spotting that you are having. You need to come to an emergency department if you are soaking through more than a pad per hour consistently with your bleeding.? The baby would not likely be okay but you might not either.? We may need to potentially intervene at that time for your own health.? I would recommend that you start the low-dose daily aspirin as planned at 8 weeks gestation.? Sometimes additional progesterone supplementation or other treatments are indicated.? Your Ob provider would know if this is right for your unique circumstance. Activity Level: No Restrictions Discharge Diet: Regular Prescriptions: No Action No Known Home Medications Follow Up/Referrals: Rodger Garrison MD [Primary Care Provider] - Stand Alone Forms: The Clearing Info Instructions
== END 2024-04-20 03:30 | disposition home or self-care (01) ==
PROVIDERS: Emergency Provider Family Medicine; PCP Surgery
DX: O20.9 Hemorrhage in early pregnancy, unspecified (principal)
CPT/HCPCS: 99282; 99283

== ENCOUNTER 2024-05-21 11:00 | Emergency (ER) | payer BC, SELFPAY ==
[2024-05-21] VITALS (10 sets, daily range): BP systolic 111–132; BP diastolic 62–111; PULSE 99–115; RESP 26; TEMP 36.6; O2SAT 96–99; BMI 35.2
--- NOTE | 2024-05-21 11:11 | CRLHL7_ITS ---
For Patients: As a result of the Century Cures Act, medical imaging exams and procedure reports are released immediately into your electronic medical record. You may view this report before your referring provider. If you have questions, please contact your health care provider. INDICATION: Vaginal bleeding in . TECHNIQUE: Ultrasound pelvis transabdominal and transvaginal for better assessment or to better visualize the endometrium. Real-time sonographic images with spectral and color Doppler imaging of the ovaries were obtained. COMPARISON: None. FINDINGS: Uterus: 9.6 x 4.4 x 6.3 cm. Normal echotexture of the myometrium. No masses. Endometrium: Transvaginal imaging was performed to better evaluate the endometrium. Endometrial thickness measures 9 mm. No intrauterine gestational sac. Some free fluid in the endometrial canal. Right ovary 2.9 x 1.9 x 1.9 centimeters. Left ovary 2.3 x 1.3 x 1.2 centimeters. No ovarian or adnexal masses. Cul-de-sac: No significant free fluid. IMPRESSION: No intrauterine gestation seen. Differential includes early , missed , or of unknown location. Recommend correlation with history, continued trending of beta hCG, and short-term follow-up ultrasound as clinically indicated. Dictated by Kip Eason MD @ 05/21/2024 12:49:50 PM (Electronically Signed)
--- NOTE | 2024-05-21 11:16 | ED.GENADULT ---
HPI - General Adult General Chief complaint: OB/Uterine Contractions Stated complaint: miscarriage, lots of pain Time Seen by Provider: 05/21/24 11:01 History of Present Illness HPI narrative: Is a 24 year white female who is a G4 para 0, who is about 10 1/2 weeks estimated gestational age by LMP of March 07. She has had multiple miscarriages before and 1 ectopic. She was seen 2 days ago in [place] and had an ultrasound and HCG that was well below the tendon half weeks she is expected to be. She has developed cramping and bleeding. She does have an ultrasound that showed an intrauterine at 1 point. By chart review. Her blood type is A positive, she denies fever, chills, breathing problem her chest pain. Patient has had vaginal bleeding and cramping like feeling. She has passed a large clot. She started a line a clinic but was planning on transferring to the midwives [facility]. Related Data Home Medications ?Medication ?Instructions ?Recorded ?Confirmed No Known Home Medications 10/27/22 05/21/24 Allergies Allergy/AdvReac Type Severity Reaction Status Date / Time acetaminophen [From Midrin] Allergy Unknown Verified 05/21/24 11:18 amoxicillin [From Augmentin] Allergy Unknown Verified 05/21/24 11:18 cephalexin [From Keflex] Allergy Unknown Verified 05/21/24 11:18 clavulanic acid Allergy Unknown Verified 05/21/24 11:18 [From Augmentin] clindamycin Allergy Unknown Verified 05/21/24 11:18 dichloralphenazone Allergy Unknown Verified 05/21/24 11:18 [From Midrin] iodine Allergy Unknown Verified 05/21/24 11:18 isometheptene [From Midrin] Allergy Unknown Verified 05/21/24 11:18 sumatriptan [From Imitrex] Allergy Unknown Verified 05/21/24 11:18 paper tape Allergy tore skin Uncoded 10/27/22 18:13 off Review of Systems Status of ROS: Reports: 6 or more systems reviewed and unremarkable except as noted in History and below [facility] Medical History No significant past medical history Surgical History No significant past surgical history Social History Smoking Status: Never smoker Do you use any of these nicotine containing products: None Second hand tobacco smoke exposure: No How often do you have a drink containing alcohol: never How often do you have six or more drinks on one occasion: Never AUDIT-C Alcohol total score: 0 Non-prescribed substance use: denies use service: No Exam Narrative: Exam Narrative: Objective: In general patient is crying out, in mild distress to moderate distress. Alert orient x3 Noncyanotic Pulses regular Abdomen soft benign nontender exam shows a nonpalpable cervix her uterus given her size. She has no vaginal bleeding and bright red blood on the vaginal exam glove. Extremities are no edema Neurologic nonfocal Const: Vital Signs, click to edit/add: Vital Signs - 24 hr 05/21/24 11:19 05/21/24 11:32 05/21/24 11:32 Temperature 97.9 F Pulse Rate 110 H Pulse Rate [Pulse Oximeter] 115 H Respiratory Rate 26 H Blood Pressure Blood Pressure [Ri ght Upper Arm] 132/111 H Pulse Oximetry 99 98 96 Oxygen Delivery Me thod Room Air 05/21/24 11:36 05/21/24 11:50 Temperature Pulse Rate 112 H 108 H Pulse Rate [Pulse Oximeter] Respiratory Rate Blood Pressure 111/62 Blood Pressure [Ri ght Upper Arm] Pulse Oximetry 98 99 Oxygen Delivery Me thod Course Vital Signs Vital signs: Initial Vital Signs Temperature 97.9 F 05/21/24 11:19 Temperature Source Temporal Artery Scan 05/21/24 11:19 Pulse Rate 115 H 05/21/24 11:19 Respiratory Rate 26 H 05/21/24 11:19 Blood Pressure 132/111 H 05/21/24 11:19 Blood Pressure Mean 118 H 05/21/24 11:19 Blood Pressure Position Semi-Fowlers 05/21/24 11:19 Pulse Oximetry 99 05/21/24 11:19 Oxygen Delivery Method Room Air 05/21/24 11:19 Vital Signs Temperature 97.9 F 05/21/24 11:19 Pulse Rate 115 H 05/21/24 11:19 Respiratory Rate 26 H 05/21/24 11:19 Blood Pressure 132/111 H 05/21/24 11:19 Pulse Oximetry 99 05/21/24 11:19 Oxygen Delivery Method Room Air 05/21/24 11:19 Temperature 97.9 F 05/21/24 11:19 Pulse Rate 108 H 05/21/24 11:50 Respiratory Rate 26 H 05/21/24 11:19 Blood Pressure 111/62 05/21/24 11:50 Pulse Oximetry 99 05/21/24 11:50 Oxygen Delivery Method Room Air 05/21/24 11:19 Medications Administered Medications: Discontinued Medications Generic Name Dose Route Start Last Admin Trade Name Shakeel PRN Reason Stop Dose Admin Morphine Sulfate 2 mg 05/21/24 11:30 05/21/24 11:28 Morphine 2 Mg/Ml Inj IVP 05/21/24 11:31 2 mg ONCE ONE Administration Medical Decision Making MDM Narrative Medical decision making narrative: 24-year-old G4 para 0 at about 10 and half weeks SP his ischial age with suggestion of nonviable in [place] couple of days ago. Presents with vaginal bleeding and lower abdominal pain. I think at this point probably get a get another ultrasound, hCG quantitative, her blood type is A positive, will consult with Ob with completion of this information, will give her morphine and IV fluid. Check laboratory studies. Addendum will 12:33 p.m. there is no intrauterine contents on the ultrasound, hCG is pending. Blood type is A positive. At this point the patient's pain is better. I think we can lower go home she can have some [place] at home and would prefer she use Tylenol or Advil at home 1st. Recommend recheck with regular doctor next 2-3 days. All check with Dr. Bar regarding any additional recommendations for referral given her multiple miscarriages. Lab Data Labs: Lab Results 05/21/24 Range/Units 11:36 WBC 9.01 (4.50-11.00) K/uL RBC 4.27 (4.00-5.20) m/uL Hgb 11.7 L (12.0-16.0) gm/dL Hct 35.9 (33.0-51.0) % MCV 84 (80-100) fL MCH 27 (26-34) pg MCHC 33 (32-36) gm/dL RDW Coeff of Adry 12.9 (11.5-15.5) % Plt Count 372 (140-440) K/uL Neut % (Auto) 71.3 (42.0-72.0) % Lymph % (Auto) 20.5 (20-44) % Yates % (Auto) 6.9 (0.0-11.0) % Eos % (Auto) 1.0 (0.0-7.0) % Baso % (Auto) 0.1 (0.0-3.0) % Neut # (Auto) 6.42 (1.7-7.0) K/uL Lymph # (Auto) 1.85 (0.90-2.90) K/uL Yates # (Auto) 0.60 (0.00-0.90) K/UL Eos # (Auto) 0.09 (0.00-0.50) K/uL Baso # (Auto) 0.01 (0.00-0.30) K/uL Abs Immat Gran (auto) 0.02 (0.00-0.30) K/uL Imm/Tot Granulo (auto) 0.2 % Discharge Plan Discharge Clinical Impression: Spontaneous miscarriage Patient Disposition: Home w/ Parent or Adult Condition: Stable Additional Instructions: Rest, light activity, follow up with regular doctor next couple of days, Tylenol Advil as needed, may also use [place] as needed. Activity Level: Light activity Discharge Diet: Regular Prescriptions: No Action No Known Home Medications Follow Up/Referrals: Rodger Garrison MD [Primary Care Provider] - Stand Alone Forms: The Clearingth Info Instructions
[2024-05-21] MEDS: MORPHINE 2 MG/ML inj IVP (11:28)
--- OUTSIDE RECORDS SUMMARY | 2024-05-21 11:33 | XMS_ITS | Continuity of Care Document ---
Author Organization [facility] Address [address] [address] [place] [address] Phone Care Team Providers [facility] Name Role Phone Arsen MURPHY, February Unavailable [...] Diagnoses Date Provider Providers Copied on Encounter [facility], [address] [address], [place], [id number], [place] tel:[phone] [facility] No Information 4 Arsen MURPHY February. [address] [facility], [address], [place], [id number] , [place]. tel: [phone] [facility], [address] [address], [place], [id number], [place] tel:[phone] [facility] No Information 4 Arsen MURPHY February. [address] [facility], [address], [place], [id number] , [place]. tel: [phone] Offic/outpt E&m Estab Low-mod [facility], [address] [address], [place], [id number], [place] tel:[phone] [facility] Abd Pain GeneralizedAbd Pain Generalized 3 Arsen MURPHY February. [address] [facility], [address], [place], [id number] , [place]. [phone] Referring Provider: [facility], [address] [place] [address], [place], [address]. tel:[phone] Offic/outpt E&m Estab Low-mod [facility], [address] [address], [place], [id number], [place] tel:[phone] [facility] Abdominal pain (chief complaint) Abd Pain Generalized Sep-2 6 3 Arsen MURPHY February. [address] [facility], [address], [place], [place], [id number] , [place]. [phone] Referring Provider: Agatha George, [address] , [place], [address]. tel:[phone] [facility], [address] [address], [place], [id number], [place] tel:[phone] [facility] No Information Sep-0 3 [facility] [address] [facility], [address], [place], [place], [id number] , [place]. [phone] Offic/outpt E&m Estab Low-mod [facility], [address] [address], [place], [id number], [place] tel:[phone] [facility] Abdominal pain (chief complaint) Abd Pain GeneralizedAbd Pain Generalized 3 Arsen MURPHY February. [address] [facility], [address], [place], [place], [id number] , [place]. [phone] Referring Provider: Agatha George, [address] , [place], [address]. tel:[phone] Offic/outpt E&m Estab Mod-hi 2 [facility], [address] [address], [place], [id number], [place] tel:[phone] [facility] Abdominal pain (chief complaint) Abd Pain GeneralizedAbd Pain Generalized Apr-0 8201 3 Lucila MURPHY Nav. [address] [facility], [address], [place], [place], [id number] , [place]. tel:[phone] Referring Provider: Agatha George, [address] , [place], [address]. tel:[phone] [facility], [address] [address], [place], [id number], [place] tel:[phone] [facility] Abd Pain Generalized Mar- 4-201 3 Lucila Chopra. [address] [facility], [address], [place], [place], [id number] , [place]. tel: [phone] [facility], [address] [address], [place], [id number], [place] tel:[phone] [facility] Abd Pain Generalized Jan-0 3 Lucila Chopra. [address] [facility], [address], [place], [place], [id number] , [place]. tel: [phone] [facility], [address] [address], [place], [id number], [place] tel:[phone] [facility] No Information Dec- 3 Lucila Chopra. [address] [facility], [address], [place], [place], [id number] , [place]. tel: [phone] [facility], [address] [address], [place], [id number], [place] tel:[phone] [facility] Abd Pain Generalized 3 Lucila Chopra. [address] [facility], [place], [place], [id number] , [place]. tel: [phone] Offic Cons New/estab Mod [facility], [address] [address], [place], [id number], [place] tel:[phone] [facility] Abdominal pain (chief complaint)Low er back pain (chief complaint)Vom iting, Temp Fluctuations (chief complaint) Abd Pain Generalized 3 Lucila Chopra. [address] [facility], [address], [place], [place], [id number] , [place]. tel: [phone] Family History Family Member Type Diagnosis Age [...]
--- OUTSIDE RECORDS SUMMARY | 2024-05-21 11:33 | XMS_ITS | Clinical Summary ---
Author Organization [employer] [facility] Address [place], [place] [address] Care Team Providers Care Inventory Control Analyst Name Role Phone [employer] Primary Care Provider Unavail able Nia Pritchard DO Unavailable [phone] Allergies Active Allergy Reactions Criticality Noted Date Comments Amoxicillin-Pot Clavulanate Rash 01/04/2015 Clindamycin Paresthesias 08/07/2015 Diatrizoate Allergen Hives,Shortness Of Breath 12/06/2008 CT contrast Sumatriptan Hives,Shortness Of Breath 09/21/2013 Also had tingling in arms and head. Iodine Hives 07/18/2015 Cephalexin Shortness Of Breath 07/08/2014 See ER notes from 05-10-14, med reaction vs conversion disorder Dwdtmik-Iaewvngox-Fkq taminophn Rash 09/28/2014 Adhesive Rash 07/18/2015 Skin comes off Medications Medication Sig Dispensed Refills Start Date End Date Status albuterol HFA (PRO-AIR; VENTOLIN; PROVENTIL) 90 mcg/actuation inhalerIndications:Acut e cough Inhale 2 Puffs by mouth every 4 hours if needed (cough). 1 Each 10/31/2022 Active ondansetron (ZOFRAN ODT) 4 mg disintegrating tabletIndications:Nause a and vomiting, unspecified vomiting type Place 1 Tablet (4 mg) on the tongue every 8 hours if needed for Nausea/Vomiting . 30 Tablet 04/01/2024 Active 62-nsmb-jcgdjg 6-dha 30 mg iron-1mg -200 mg cap Take by mouth. 04/01/2024 Active Active Problems Problem Noted Date Diagnosed Date 04/11/2024 Overview: Primary OB patient of Preferred name: [place] Language/cultural preferences: Hungarian OB HISTORY / PERTINENT MEDICAL HISTORY: Dating [...] Overview: Referred to as daily headaches at [facility]; [facility]; mother refers to them as cluster headaches but no documentation found with that diagnosis. Learning disability 08/15/2014 Speech delay 08/15/2014 Anxiety 10/15/2013 POTS (postural orthostatic tachycardia syndrome) Estimated Date of Delivery Comme nts Yes 12/16/2024 Based on Ultraso und Resolved Problems Problem Noted Date Diagnosed Date Resolved Date Vaginal bleeding affecting early 05/19/2024 05/19/2024 Recurrent streptococcal tonsillitis 09/04/2015 04/18/2024 Clostridium difficile enteritis 08/15/2014 04/18/2024 Body temperature low 02/07/2013 024 Unspecified constipation 03/22/2010 Encounters Date Type Department Care Team Description 05/21/2024 Nurse Triage [facility] Centralized Nurse Triage Brandyn Almaraz Miscarriage 05/19/2024 3:39 AM CDT - 05/19/2024 7:01 AM CDT Emergency [facility] [address] [place] [address] Alivia Rivera MD Miscarriage (Primary Dx) Discharge Disposition: Home Self Care 05/19/2024 Travel 04/18/2024 9:10 AM CDT OB Encounter [facility] [address] [place] [address] Nia Pritchard, Care (5wk 6 days per ED US on 04/12. Bleeding has gotten better, only when wiping. Cramps have improved as well) 04/18/2024 7:30 AM CDT - 04/18/2024 11:59 PM CDT Hospital Encounter [facility] [address] [place] [address] Rose Kapadia MD Encounter for supervision of other normal in first trimester 04/18/2024 Travel 04/12/2024 Orders Only [facility] SERVICES Scanner 1 scan: (1-Ord) [facility] OB TRANSVAGINAL , 04/12/2024 04/11/2024 10:40 AM CDT OB Encounter [facility] [address] [place] [address] Education (Ob intake) 04/11/2024 Travel 04/08/2024 10:00 AM CDT Orders Only [facility] [address] [place] [address] Lab, [place] [facility] 04/08/2024 Travel 04/06/2024 Telephone [facility] [address] [facility] [address] Nia Pritchard, DO Questions (//HIGH RISK); Appointment () 04/04/2024 10:00 AM CDT Orders Only [facility] [address] [place] [id number] Lab, [facility] Lab 04/04/2024 Travel 04/01/2024 2:25 PM CDT Office Visit [facility] [address] [facility] [address] Rodger Garrison MD Confirmation (Positive test at [...] Asthma Maternal Grandfather Heart Disease Maternal Grandfather NV wit h stents placed Asthma Maternal Grandmother [...] Outcome GA Total Labor Labor/2nd/3rd Weight Sex Type Anes PTL Amisha A1 A5 Name Clin 017 Ectopic 09/2021 SAB 07/2023 SAB Current Summary Episode Dates Number of Fetuses Estimated Date of Delivery 04/11/2024 - Present (05/21/2024) 12/16/2024 (set by Nia Pritchard, on 04/18/2024 based on Ultrasound on 04/18/2024) Dating Summary Based On JENELLE GA Diff Last Menstrual Period (LMP Unknown) Ultrasound on 04/18/2024 12/16/2024 Working GA:5w3d Vitals Pregravid Weight Height TWG (As of 05/21/2024) Pregrav id BMI 1.676 m (5' 6) Date GA Fund Present FHR Mvmt BP Weight Edema Alb Glu Ket Dil/ Eff/Sta 4 5w3d Inpatient data not displayed here. See encounter summary. 4 9w6d Inpatient data not displayed here. See encounter [...] Control at the time of conception: NO TEAROOM HOST HX: No history of abnormal pap smears. [...] 08/15/2014 Frequent headaches Consult with Neurology 09/04/2014 [facility] History of intrauterine in previous POTS [...] Cancer Maternal Grandmother Heart Disease Maternal Grandfather NV with stents placed Asthma Maternal Grandfather Heart [...] every 8 hours if needed for Nausea/Vomiting. 46-iicb-cefyuh 6-dha 30 mg iron-1mg -200 mg cap Take by mouth. No current facility-administered medications for this visit. Medications have been reviewed by me and are current to the best of my knowledge and ability. 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 84-zuii-byrexr 6-dha 30 mg iron-1mg -200 mg cap Take by mouth. No current facility-administered medications for this visit. Medications have been reviewed by me and are current to the best of my knowledge and ability. ALLERGIES: Augmentin [amoxicillin-pot clavulanate], Clindamycin, Diatrizoate allergen, Imitrex [sumatriptan], Iodine, Keflex [cephalexin], Midrin [qygynhr-cwrlxeezv-fpjzegururya], and Paper tape [adhesive] OBJECTIVE: LMP (LMP Unknown) ,URINE (no units) Date Value 10/28/2021 Negative ASSESSMENT/PLAN: ICD-10-CM 1. Encounter for supervision of other normal in first trimester Z34.81 CBC W PLT NO DIFF ANTI HIV 1/2 URINE CULTURE TYPE AND SCREEN RUBELLA IMMUNE STATUS TREPONEMA PALLIDUM HBSAG (HBS) ANTI HCV TEAROOM HOST PROBE - GC CHLAMYDIA DNA PCR [[id number]] URINALYSIS W REFLEX MICROSCOPIC IF POSITIVE [29788.2] US 1ST TRIMESTER (< 14 weeks) [26361.0] EDUCATION/PATIENT INSTRUCTIONS - Advised patient to start/continue vitamin. - Discussed risk of using alcohol, tobacco, other drugs in . - Discussed healthy lifestyle in . - Provided copy of [facility] book and book inserts, discussed rcih-wwp-ixfyhhb medications, and follow up. - Encouraged patient to call clinic at [phone] with any vaginal bleeding, fluid leaking from [...] Department Center 04/18/2024 9:10 AM Nia Pritchard, NFLDFP NFLD Ros Desir RN .................... 04/11/2024 11:05 AM Last Filed Vital Signs Vital Sign Reading Time Taken Comments Blood Pressure 126/82 05/19/2024 3:44 AM CDT Pulse 104 05/19/2024 3:44 AM CDT Temperature 36.8 ??C (98.3 ??F) 05/19/2024 3:44 AM CD T Respiratory Rate 18 05/19/2024 3:44 AM CDT Oxygen Saturation 99% 05/19/2024 3:44 AM CDT Inhaled Oxygen Concentration - - Weight 98.9 kg (218 lb 1.6 oz) 05/19/2024 3:44 A M CDT Height 167.6 cm (5' 6) 05/19/2024 3:44 AM CDT Body Mass Index 35.2 05/19/2024 3:44 AM CDT Plan of Treatment Health Maintenance Due Date Last Done Comments HPV series for age 9-26 (1 - 3-dose series) 2013 Depression screening for age 12+ 11/05/2018 11/05/2017, 07/02/2016 Pap test for age 21-65 2019 Tetanus booster 08/02/2020 08/02/2010 COVID-19 vaccine series (2022-24 season) 2023 Influenza for age 9-49 07/31/2024 [...] OB 1ST TRI SINGLE TA AND TV STAT 05/19/2024 5:46 AM CDT HCG BETA QUANT, STAT 05/19/2024 4:21 AM CDT CBC W PLT NO DIFF STAT 05/19/2024 4:2 1 AM CDT US OB 1ST TRI SINGLE TA AND [...] OB 1ST TRI SINGLE TA AND TV (05/19/2024 5:46 AM CDT) Only the most recent of2 resultswithin the time period is included. Anatomical Region Laterality Modality Ultrasound 05/19/2024 6:56 AM CDT Impressions 05/19/2024 6:56 AM CDT Findings diagnostic of failure. No cardiac activity is identified within the pole, which did not demonstrate adequate interval growth compared to prior ultrasound from 04/18/2024. Dictated by Carmela Hernandez MD @ 05/19/2024 6:56:44 AM (Electronically Signed) Narrative 05/19/2024 6:56 AM CDT For Patients: ??As a result of the Century Cures Act, medical imaging exams and procedure reports are released immediately into your electronic medical record. ??You may view this report before your referring provider. ??If you have questions, please contact your health care provider. INDICATION: Abnormal bleeding. Last menstrual period 03/07/2024 with clinical gestational age of 10 weeks 3 days. TECHNIQUE: Ultrasound OB pelvis transabdominal and transvaginal. ??Real-time morel-scale imaging of the pelvis was performed. COMPARISON: 04/18/2024. FINDINGS: The uterus measures 9.6 x 5.5 x 4.8 cm. There is a single intrauterine gestation. Mean gestational sac diameter measures 2.4 cm, which corresponds to a gestational age of 7 weeks 4 days, previously 0.8 cm (5 weeks 3 days) on ultrasound from 04/18/2024. [place]-rump length measures 1.6 cm, which corresponds with a gestational age of 8 weeks 1 day, previously 0.5 cm (6 weeks 2 days). No heart rate is detected. No yolk sac is visualized. Fluid is seen within the endocervical canal. The ovaries are of normal size. Corpus luteum is seen within the right ovary there are no suspicious fluid collections noted in the cul-de-sac. Procedure Note Carmela Hernandez, DO - 05/19/2024 For Patients: As a result of the Cures Act, medical imagingexams and procedure reports are released immediately into your electronicmedical record. You may view this report before your referring provider.If you have questions, please contact your health care provider. INDICATION: Abnormal bleeding. Last menstrual period 03/07/2024 with clinicalgestational age of 10 weeks 3 days. TECHNIQUE: Ultrasound OB pelvis transabdominal and transvaginal. Pmta-jddeoixc-xwkdo imaging of the pelvis was performed. COMPARISON: 04/18/2024. FINDINGS: The uterus measures 9.6 x 5.5 x 4.8 cm. There is a single intrauterine gestation. Mean gestational sac diametermeasures 2.4 cm, which corresponds to a gestational age of 7 weeks 4 days,previously 0.8 cm (5 weeks 3 days) on ultrasound from 04/18/2024.[place]-rump length measures 1.6 cm, which corresponds with a gestationalage of 8 weeks 1 day, previously 0.5 cm (6 weeks 2 days). No heartrate is detected. No yolk sac is visualized. Fluid is seen within theendocervical canal. The ovaries are of normal size. Corpus luteum is seen within the rightovary there are no suspicious fluid collections noted in the cul-de-sac. IMPRESSION: Findings diagnostic of failure. No cardiac activity isidentified within the pole, which did not demonstrate adequateinterval growth compared to prior ultrasound from 04/18/2024. Dictated by Carmela Hernandez MD @ 05/19/2024 6:56:44 AM (Electronically Signed) Alivia Rivera MD US * CBC W PLT NO DIFF (05/19/2024 4:21 AM CDT) Only the most recent of2 resultswithin the time period is included. WHITE BLOOD COUNT 8.9 4.5 - 11.0 thou/cu mm 05/19/2024 4:27 AM [facility] RED BLOOD COUNT 4.45 4.00 - 5.20 mil/cu mm 05/19/2024 4:27 AM [facility] HEMOGLOBIN 12.5 12.0 - 16.0 g/dL 05/19/2024 4:27 AM [facility] HEMATOCRIT 38.2 33.0 - 51.0 % 05/19/2024 4:27 AM [facility] MCV 86 80 - 100 fL 05/19/2024 4:27 AM [facility] MCH 28.1 26.0 - 34.0 pg 05/19/2024 4:27 AM [facility] MCHC 32.7 32.0 - 36.0 g/dL 05/19/2024 4:27 AM [facility] RDW 13.6 11.5 - 15.5 % 05/19/2024 4:27 AM [facility] PLATELET COUNT 401 140 - 440 thou/cu mm 05/19/2024 4:27 AM [facility] MPV 9.0 6.5 - 11.0 fL 05/19/2024 4:27 AM [facility] Blood BLOOD SPECIMEN / Unknown Butterfly / Unknown 05/19/2024 4:21 AM CDT 05/19/2024 4:24 AM CDT Alivia Rivera MD HEMATOLOGY [facility] [address] [place] [address] * HCG BETA QUANT, (05/19/2024 4:21 AM CDT) Only the most recent of5 resultswithin the time period is included. HCG BETA QUANT,PREGNANC Y 11,967 mIU/mL 05/19/2024 5:13 AM T [facility] Blood BLOOD SPECIMEN / Unknown Butterfly / Unknown 05/19/2024 4:21 AM CDT 05/19/2024 4:24 AM CDT [facility] - 05/19/2024 5:13 AM CDT Expected Value for Healthy Non- [...] at least one week prior to retesting. Alivia Rivera MD CHEMISTRY [facility] [address] [place] [address] * SCAN-ULTRASOUND REPORT (04/12/2024 12:00 AM CDT) Anatomical Region Laterality Modality Other Scanner OTHER * TEAROOM HOST PROBE - GC CHLAMYDIA DNA PCR [[id number]] (04/11/2024 11:53 AM CDT) CHLAMYDIA PROBE Negative 2:47 AM CDT [facility] N GONORRHOEAE PROBE Negative 04/12/2024 2:47 AM CDT [facility] Other URINE SPECIMEN / Unknown Non-Blood / Unknown 04/11/2024 11:53 AM CDT 04/11/2024 11:53 AM CDT Rose Kapadia MD MICROBIOLOGY Performing Organization Address City/[facility]/ZIP Co de Phone Number [facility] [address] [place] [id number], [place] * URINE CULTURE (04/11/2024 11:53 AM CDT) CULTURE <10,000 CFU/mL multiple organisms 04/13/2024 8:22 AM CDT [facility] Urine URINE SPECIMEN / Unknown Non-Blood / Unknown 04/11/2024 11:53 AM CDT 04/11/2024 11:53 AM CDT Rose Kapadia MD MICROBIOLOGY Performing Organization Address [facility] Co de Phone Number [facility] [address] [address], [place] * URINALYSIS W REFLEX MICROSCOPIC IF POSITIVE [76703.2] (04/11/2024 11:53 AM CDT) COLOR Yellow Yellow Color 04/11/2024 12:00 PM CDT [facility] CLARITY Clear Clear Clarity 04/11/2024 12:00 PM CDT [facility] SPECIFIC GRAVITY,URINE 1.020 1.010, 1.015, 1.020, 1.025 04/11/2024 12:00 PM CDT [facility] PH,URINE 6.0 6.0, 7.0, 8.0, 5.5, 6.5, 7.5, 8.5 04/11/2024 12:00 PM CDT [facility] UROBILINOGEN, QUALITATIVE Normal Normal EU/dl 04/11/2024 12:00 PM CDT [facility] PROTEIN, URINE Negative Negative mg/dL 04/11/2024 12:00 PM CDT [facility] GLUCOSE, URINE Negative Negative mg/dL 04/11/2024 12:00 PM CDT [facility] KETONES,URINE Negative Negative mg/dL 04/11/2024 12:00 PM CDT [facility] BILIRUBIN,URI NE Negative Negative 04/11/2024 12:00 PM CDT [facility] OCCULT BLOOD,URINE Negative Negative 04/11/2024 12:00 PM CDT [facility] NITRITE Negative Negative 04/11/2024 12:00 PM CDT [facility] LEUKOCYTE ESTERASE Negative Negative 04/11/2024 12:00 PM CDT [facility] Urine URINE SPECIMEN / Unknown Non-Blood / Unknown 04/11/2024 11:53 AM CDT 04/11/2024 11:53 AM CDT Rose Kapadia MD URINE [facility] [address] [place] [address], * TREPONEMA PALLIDUM (04/11/2024 11:49 AM CDT) TREPONEMA PALLIDUM Non-Reacti ve Non-Reacti ve 04/12/2024 2:55 AM CDT [facility] TR[facility] Blood BLOOD SPECIMEN / Unknown Venipuncture / Unknown 04/11/2024 11:49 AM CDT 04/11/2024 11:50 AM CDT Rose Kapadia MD [facility] [address] [place] [address], * RUBELLA IMMUNE STATUS (04/11/2024 11:49 AM CDT) INTERPRETATION Positive 04/12/2024 7:52 AM CDT [facility] Comment:Presence of detectab le IgG antibodies. A positive result generally indicates exposure to the virus or previous vaccination, but is not an indication of active infection or stage of disease. RUBELLA IGG ANTIBODY 1.42 >=1.00 Index 04/12/2024 7:52 AM CDT [facility] Blood BLOOD SPECIMEN / Unknown Venipuncture / Unknown 04/11/2024 11:49 AM CDT 04/11/2024 11:50 AM CDT Narrative [facility] - 04/12/2024 7:52 AM CDT ??<0.90 ? Negative ?? 0.90-0.99 ?? Equivocal >=1.0 ?Positive Rose Kapadia MD SEND OUTS [facility] [address] [place] [address], * TYPE AND SCREEN (04/11/2024 11:49 AM CDT) ABORH A Rh Positive 04/11/2024 10:13 PM CDT [facility] BLOOD BANK ANTIBODY SCREEN Negative Negative 04/11/2024 10:13 PM CDT [facility] LAB BLOOD BANK SPECIMEN EXPIRATION DATE/TIME 04/14/24 23:59 04/11/2024 10:13 PM CDT [facility] LAB BLOOD BANK Blood BLOOD SPECIMEN / Unknown Venipuncture / Unknown 04/11/2024 11:49 AM CDT 04/11/2024 11:50 AM CDT Rose Kapadia MD BLOOD BANK Performing Organization Address City/[facility]/ZIP Co de Phone Number [facility] BLOOD BANK [address] [place] [address], * HBSAG (HBS) (04/11/2024 11:49 AM CDT) HBSAG Nonreactive Nonreactive 04/12/2024 2:49 AM CDT [facility] TRAL [facility] Blood BLOOD SPECIMEN / Unknown Venipuncture / Unknown 04/11/2024 11:49 AM CDT 04/11/2024 11:50 AM CDT Rose Kapadia MD SEND OUTS [facility] [email or web address] [facility] [address] [place] [address], * ANTI HCV (04/11/2024 11:49 AM CDT) Pathologist [facility] HEPATITIS C ANTIBODY Non-Reacti ve Non-React suly 04/12/2024 4:07 AM CDT [facility] Comment:Please note, per www .CDC.gov: [...] Kapadia MD SEND OUTS Performing Organization Address [facility] Co de Phone Number [facility] [address] [place] [address], * ANTI HIV 1/2 (04/11/2024 11:49 AM CDT) Pathologist [facility] HIV-1/HIV-2 SCREEN Non-Reacti ve Non-Reacti ve 04/12/2024 2:49 AM CDT [email or web address] Comment:HIV-1 p24 and HIV-1/ HIV-2 Ab Not Detected. Blood BLOOD SPECIMEN / Unknown Venipuncture / Unknown 04/11/2024 11:49 AM CDT 04/11/2024 11:50 AM CDT Rose Kapadia MD SEND OUTS [facility] [address] [place] [address], from Last 3 Months Care Teams Inventory Control Analyst Relationship Specialty Start Date End Date Brandyn Almaraz PCP - General 10/27/22 [place] [address] [facility] 04/11/24
[2024-05-21 11:43] LABS: Basophils Absolute Auto 0.01 K/uL (0.00-0.30); Basophils Percent Auto 0.1 % (0.0-3.0); Eosinophils Absolute Auto 0.09 K/uL (0.00-0.50); Hematocrit 35.9 % (33.0-51.0); Hemoglobin* 11.7 gm/dL (12.0-16.0); Immature Granulocytes Abs Auto 0.02 K/uL (0.00-0.30); Immature Granulocytes Pct Auto 0.2 %; Lymphocytes Absolute Auto 1.85 K/uL (0.90-2.90); Lymphocytes Percent Auto 20.5 % (20-44); Mean Corpuscular HGB Conc 33 gm/dL (32-36); Mean Corpuscular Hemoglobin 27 pg (26-34); Mean Corpuscular Volume 84 fL (80-100); Monocytes Percent Auto 6.9 % (0.0-11.0); Neutrophils Absolute Auto 6.42 K/uL (1.7-7.0); Neutrophils Percent Auto 71.3 % (42.0-72.0); Platelet Count* 372 K/uL (140-440); RDW Coefficient of Variation % 12.9 % (11.5-15.5); Red Blood Count 4.27 m/uL (4.00-5.20); White Blood Count* 9.01 K/uL (4.50-11.00)
[2024-05-21 11:45] LABS: Slide Review Reflex No
[2024-05-21 12:15] LABS: Chloride* 107 mmol/L (96-114); Potassium* 3.4 mmol/L (3.6-5.1); Sodium* 135 mmol/L (135-149)
[2024-05-21 12:18] LABS: Anion Gap 10 mEq/L (7-15); Blood Urea Nitrogen* 16 mg/dL (5-24); Carbon Dioxide* 18 mmol/L (20-32); Creatinine* 0.6 mg/dL (0.5-1.5); Est. Creatinine Clearance* 133.01; Estimated Glomerular Filt Rate 127 ml/min; Glucose* 108 mg/dL (60-115)
[2024-05-21] MEDS: 0.9 % SODIUM CHLORIDE 1000 ml 1,000 ML 6000 ML IV (13:00)
== END 2024-05-21 12:45 | disposition home or self-care (01) ==
PROVIDERS: Emergency Provider Family Medicine; PCP Surgery
DX: O03.9 Complete or unspecified spontaneous abortion without complication (principal)
CPT/HCPCS: 36415; 76817; 80048; 84702; 85025; 86900; 86901; 94761; 96374; 99284; J2270; J7030

== ENCOUNTER 2024-07-19 11:45 | Outpatient (CLI) | payer BC, SELFPAY | END 2024-07-19 11:46 | disposition home or self-care (01) | LOC: NFLDREF 14:29 | PROVIDERS: PCP Surgery; Referring Provider Surgery; Visit Provider Obstetrics & Gynecology | DX: N96 Recurrent pregnancy loss (principal); O00.90 Unspecified ectopic pregnancy without intrauterine pregnancy | CPT/HCPCS: 84439; 84443; 85610; 85613; 85730; 86146; 86147; 88262 ==

== ENCOUNTER 2024-07-29 13:46 | Outpatient (CLI) | payer BC, SELFPAY ==
--- NOTE | 2024-07-29 14:54 | W.PM.GYNPROC ---
Procedure Note Time Seen by Provider: 14:54 Date of procedure: 07/29/24 Will [facility] bill your pro fee for this procedure?: Yes Pre-op diagnosis: Recurrent loss Post-op diagnosis: Recurrent loss Possible endometrial polyps Procedure: Sonohysterogram Anesthesia: none Complications: None Surgeon: Otoniel Wiseman MD Estimated blood loss (mL): 0 IV fluids (mL): 0 Urine Output (mL): 0 Pathology: none sent Condition: stable Disposition: same day Findings: Anteverted uterus or normal size Endometrial cavity assessment notable for two foci of ?endometrial polyp Procedure Description: After obtaining verbal consent, the patient was placed in the dorsal lithotomy position on the US table. An open-sided bivalve speculum was introduced into the vagina and the cervix easily visualized. The cervix and vagina were then prepped with Hibiclens. The anterior lip of the cervix was grasped with a single-tooth tenaculum for traction. A balloon tipped double-lumen catheter was then gently inserted through the cervical opening into the uterine cavity to the level of the fundus. The balloon was insufflated with 3 mL of air. The tenaculum and speculum were removed. Transvaginal US probe was gently introduced into the vaginal canal and longitudinal view of the uterus was easily achieved. The catheter had been previously flushed with normal saline. Normal saline was injected through the double-lumen catheter under moderate pressure. The endometrial cavity readily distended, but optimal assessment was limited by visualization of the balloon. The balloon was taken down, where saline was again injected with optimal visualization. Endometrial canal assessment was notable for the above noted findings. There was two possible tiny intrauterine focal anomalies, likely polyps, that were demonstrated on both longitudinal and transverse assessment. The more superior lesion measures 3x2mm, the inferior is 2x2mm. The transvaginal probe and catheter were removed. The patient tolerated the procedure well, though she did have moderate cramping discomfort while balloon was inflated. Speculum was reinserted, excellent hemostasis at tenaculum site was confirmed. Findings were relayed to patient. Plan to coordinate outpatient visit for surgical listing for hysteroscopy and polypectomy (possible). She was discharged to home in stable condition.
== END 2024-07-29 13:47 | disposition home or self-care (01) ==
LOC: US 13:47
PROVIDERS: PCP Surgery; Visit Provider Obstetrics & Gynecology
DX: N96 Recurrent pregnancy loss (principal)
CPT/HCPCS: 58340; 76831; A4649

== ENCOUNTER 2024-08-22 11:07 | Outpatient (CLI) | payer BC, SELFPAY ==
--- OUTSIDE RECORDS SUMMARY | 2024-08-27 17:41 | XMS_ITS | Continuity of Care Document ---
Author Organization [facility] Address [address] [address] [place] [address] Phone Care Team Providers Care Tape Making Machine Operator Name Role Phone Arsen MURPHY, February Unavailable [...] Diagnoses Date Provider Providers Copied on Encounter [facility], [address] [address], [place], [id number], [place] tel:[phone] [facility] No Information 4 Arsen MURPHY February. [address] [facility], [place], [id number] , [place]. tel: [phone] [facility], [address] [address], [place], [id number], [place] tel:[phone] [facility] No Information 4 Arsen MURPHY February. [address] [facility], [place], [id number] , [place]. tel: [phone] Offic/outpt E&m Estab Low-mod [facility], [address] [address], [place], [id number], [place] tel:[phone] [facility] Abd Pain GeneralizedAbd Pain Generalized 3 Arsen MURPHY February. [address] [facility], [place], [id number] , [place]. tel:[phone] Referring Provider: [facility], [address] [place] [address], [place], [address]. tel:[phone] Offic/outpt E&m Estab Low-mod [facility], [address] [address], [place], [id number], [place] tel:[phone] [facility] Abdominal pain (chief complaint) Abd Pain Generalized Sep-2 6 3 Arsen MURPHY February. [address] [facility], [place], [id number] , [place]. [phone] Referring Provider: Agatha George, [address] , [place], [address]. tel:[phone] [facility], [address] [address], [place], [id number], [place] tel:[phone] [facility] No Information Sep-0 3 Jorge [facility]URPHY [facility] [address] [facility], [place], [id number] , [place]. [phone] Offic/outpt E&m Estab Low-mod [facility], [address] [address], [place], [id number], [place] tel:[phone] [facility] Abdominal pain (chief complaint) Abd Pain GeneralizedAbd Pain Generalized 3 Arsen MURPHY February. [address] [facility], [address], [place], [id number] , [place]. [phone] Referring Provider: Agatha George, [address] , [place], [address]. tel:[phone] Offic/outpt E&m Estab Mod-hi 2 [facility], [address] [address], [place], [id number], [place] tel:[phone] [facility] Abdominal pain (chief complaint) Abd Pain GeneralizedAbd Pain Generalized Apr-0 8201 3 Lucila MURPHY Nav. [address] [facility], [place], [place], [id number] , [place]. tel:[phone] Referring Provider: Agatha George, [address] , [place], [address]. tel:[phone] [facility], [address] [address], [place], [id number], [place] tel:[phone] [facility] Abd Pain Generalized Mar- 4-201 3 Lucila Chopra. [address] [facility] [address], [place], [id number] , [place]. tel: [phone] [facility], [address] [address], [place], [id number], [place] tel:[phone] [facility] Abd Pain Generalized Jan-0 3 Lucila Chopra. [address] [facility] [address], [address], [place], [place], [address] , [place]. tel: [phone] [facility], [address] [address], [place], [id number], [place] tel:[phone] [facility] No Information Dec- 3 Lucila Chopra. [address] [facility] [address], [address], [place], [id number] , [place]. tel: [phone] [facility], [address] [address], [place], [address], [place] tel:[phone] [facility] Abd Pain Generalized 3 Lucila Chopra. [address] [facility] [address], [address], [place], [id number] , [place]. tel: [phone] Offic Cons New/estab Mod [facility], [address] [address], [place], [id number], [place] tel:[phone] [facility] Abdominal pain (chief complaint)Low er back pain (chief complaint)Vom iting, Temp Fluctuations (chief complaint) Abd Pain Generalized 3 Lucila Chopra. [address] [facility] [address], [address], [place], [id number] , [place]. tel: [phone] Family History Family Member Type Diagnosis Age [...]
--- OUTSIDE RECORDS SUMMARY | 2024-08-27 17:42 | XMS_ITS | Clinical Summary ---
Author Organization [facility] Address [place], [place] [address] Care Team Providers Care Wood Carving Lathe Operator Name Role Phone Nia Pritchard DO Unavailable [phone] [facility], [facility] Primary Care Pr ovider Allergies Active Allergy Reactions Criticality Noted Date Comments Amoxicillin-Pot Clavulanate Rash 01/04/2015 Clindamycin Paresthesias 08/07/2015 Diatrizoate Allergen Hives,Shortness Of Breath 12/06/2008 CT contrast Sumatriptan Hives,Shortness Of Breath 09/21/2013 Also had tingling in arms and head. Iodine Hives 07/18/2015 Cephalexin Shortness Of Breath 07/08/2014 See ER notes from 05-10-14, med reaction vs conversion disorder Svovudc-Cjerhmqtg-Nil taminophn Rash 09/28/2014 Adhesive Rash 07/18/2015 Skin [...] for Nausea/Vomiting . 30 Tablet 04/01/2024 Active 94-mmes-xudrub 6-dha 30 mg iron-1mg -200 mg cap Take by mouth. 04/01/2024 Active Active Problems Problem Noted Date Diagnosed Date 04/11/2024 Overview (04/12/2024): Primary OB patient of Preferred name: Pili Language/cultural preferences: Tajik OB HISTORY / PERTINENT MEDICAL HISTORY: Dating [...] 11/2018 Conversion disorder 07/18/2015 Chronic headaches 04/12/2015 Overview (04/12/2015): Referred to as daily headaches at [place]; [facility]; mother refers to them as cluster headaches but no documentation found with that diagnosis. Learning disability 08/15/2014 Speech delay 08/15/2014 Anxiety 10/15/2013 POTS (postural orthostatic tachycardia syndrome) Resolved Problems Problem Noted Date Diagnosed Date Resolved Date Vaginal bleeding affecting early 05/19/2024 05/19/2024 Recurrent streptococcal tonsillitis 09/04/2015 04/18/2024 Clostridium difficile enteritis 08/15/2014 04/18/2024 Body temperature low 02/07/2013 024 Unspecified constipation 03/22/2010 Encounters Date Type Department Care Team Description 07/29/2024 Orders Only [facility] Scanner 1 scan: (1-Ord) [facility], SONOHYSTEROGRAM, 07/29/2024 07/19/2024 Lab Requisition [facility] C[facility]TRAL [facility] [phone] Tamar Wiseman MD from Last 3 Months Immunizations Name Administration [...] Asthma Maternal Grandfather Heart Disease Maternal Grandfather [place] wit h stents placed Asthma Maternal Grandmother [...] Housing in the Last Year 1 08/21/2023 Sex and Gender Information Value Date Recorded Sex Assigned at Not on file Gender Identity Not on file Sexual Orientation Not on file Obstetrics History Para Term AB IAB SAB Ectopic Multiple Livin g Live Births 4 0 0 0 4 0 3 1 0 0 Date Outcome GA Total Labor Labor/2nd/3rd Weight Sex Type Anes PTL Amisha A1 A5 Name Clin 017 Ectopic 09/2021 SAB 07/2023 SAB 024 SAB 10w1 d Last Filed Vital Signs Vital Sign Reading [...] Tetanus booster 08/02/2020 08/02/2010 COVID-19 vaccine series (2023- season) 2024 Influenza for age 9-49 07/31/2024 7, 10/12/2015, [...] Procedure Name Priority Date/Time Associated Diagnosis Comments SCAN-OPERATIVE/PROCE DURE REPORT 07/29/2024 12:00 AM CDT CHROM TECH 2 Routine 07/19/2024 11:45 AM CDT CHROM TECH 1 Routine 07/19/2024 11:45 AM CDT QB Routine 07/19/2024 11:45 AM CDT WC Routine 07/19/2024 11:45 AM CDT WB Routine 07/19/2024 11:45 AM CDT CB WETLAB Routine 07/19/2024 11:45 AM CDT CB CHROM Routine 07/19/2024 11:45 AM CDT CYTOGENETIC CONGENITAL BLOOD STUDIES Routine 07/19/2024 11:45 AM CDT ANTI HIV 1/2 Routine 04/11/2024 11:49 AM CDT Encounter for supervision of other normal in first trimester ANTI HCV Routine 04/11/2024 11:49 AM CDT Encounter for supervision of other normal in first trimester from Last 3 Months or Most Recently Relevant to Health Maintenance Results * SCAN-OPERATIVE/PROCEDURE REPORT (07/29/2024 12:00 AM CDT) Scanner OTHER * CB WETLAB (07/19/2024 11:45 AM CDT) Blood (Peripheral Blood) Client Collect / Unknown 07/19/2024 11:45 AM CDT 07/19/2024 11:14 PM CDT Tamar Wiseman MD LABORATORY Performing Organization Address [facility] Co de Phone Number [facility] TriVascularCENTRAL LABORATORY [address] [place] [address], [place] * WB (07/19/2024 11:45 AM CDT) Blood (Peripheral Blood) Client Collect / Unknown 07/19/2024 11:45 AM CDT 07/19/2024 11:14 PM CDT Tamar Wiseman MD LABORATORY Performing Organization Address [facility] Co ct Phone Number [facility] Messenger LABORATORY [address] [place] [address], [place] * QB (07/19/2024 11:45 AM CDT) Blood (Peripheral Blood) Client Collect / Unknown 07/19/2024 11:45 AM CDT 07/19/2024 11:14 PM CDT Tamar Wiseman MD LABORATORY Performing Organization Address [facility] Co de Phone Number [facility] Messenger LABORATORY [address] [place] [address], [place] * CHROM TECH 2 (07/19/2024 11:45 AM CDT) Blood (Peripheral Blood) Client Collect / Unknown 07/19/2024 11:45 AM CDT 07/19/2024 11:14 PM CDT Tamar Wiseman MD LABORATORY Performing Organization Address [facility] Co de Phone Number [facility] Tri[facility]ascularCENTRAL LABORATORY [address] [place] [address], [place] * CHROM TECH 1 (07/19/2024 11:45 AM CDT) Blood (Peripheral Blood) Client Collect / Unknown 07/19/2024 11:45 AM CDT 07/19/2024 11:14 PM CDT Tamar Wiseman MD LABORATORY Performing Organization Address City/[facility]/ZIP Co de Phone Number [facility] VigilentCENTRAL LABORATORY [address] [place] [address], [place] * CB CHROM (07/19/2024 11:45 AM CDT) Blood (Peripheral Blood) Client Collect / Unknown 07/19/2024 11:45 AM CDT 07/19/2024 11:14 PM CDT Tamar Wiseman MD LABORATORY Performing Organization Address City/[facility]/ZIP Co de Phone Number [facility] VigilentCENTRAL LABORATORY [address] [place] [address], [place] * WC (07/19/2024 11:45 AM CDT) Blood (Peripheral Blood) Client Collect / Unknown 07/19/2024 11:45 AM CDT 07/19/2024 11:14 PM CDT Tamar Wiseman MD LABORATORY Performing Organization Address City/[facility] Co de Phone Number [facility] BoxCENTRAL LAB[facility] [address] [place] [address], [place] * CYTOGENETIC CONGENITAL BLOOD STUDIES (07/19/2024 11:45 AM CDT) RFR Recurrent Loss 07/29/2024 5:18 PM CDT [facility] ENTRAL LAB[facility]AT[facility] TEST & RESULT SUMMARY Chromosome Analysis: Normal female karyotype. 07/29/2024 5:18 PM CDT [facility] ENTRAL LAB[facility]AT[facility] _ 07/29/2024 5:18 PM CDT [employer] ENTRAL LABORATORY ISCN 46,XX 07/29/2024 5:18 PM CDT [facility] [employer]- ENTRAL LABORATORY INTERPRETATION Chromosome analysis revealed a normal female karyotype with no numeric or structural chromosome abnormalities detected. 07/29/2024 5:18 PM CDT [employer] ENTRAL LABORATORY LAB TEST DETAILS Fully Analyzed Metaphases: ??8 Partially Analyzed Metaphases: ??12 Full Karyotypes: ??2 Band Length Range: ??550-575 07/29/2024 5:18 PM CDT [facility] ENTRNV LABORATORY SOURCE Peripheral Blood (10ml NaHep) 07/29/2024 5:18 PM CDT [facility] [employer] [facility] ENTRNV LABORATORY METHODS Cultures used in chromosome analysis may include synchronized and/or unsynchronized cultures. ?? Chromosome analysis is performed selecting the highest quality factory representative G-banded metaphases available. A minimum of six metaphases were fully analyzed. 07/29/2024 5:18 PM CDT [facility] LABORATORY DISCLAIMER This test was developed and its performance characteristics determined by the [facility]. It has not been cleared or approved by the U.S. Food and Drug Administration. The FDA does not require these tests to go through premarket FDA review. These tests are used for clinical purposes. They should not be regarded as investigational or for research. This laboratory is certified under the Clinical Laboratory Improvement Amendments (CLIA) as qualified to perform high complexity clinical laboratory testing. 07/29/2024 5:18 PM CDT [employer] [facility] LABORATORY Blood (Peripheral Blood) Client Collect / Unknown 07/19/2024 11:45 AM CDT 07/19/2024 11:14 PM CDT Tamar Wiseman MD LABORATORY Performing Organization Address City/State/[facility] Co de Phone Number [facility] [address] [place] [address] * ANTI HCV (04/11/2024 11:49 AM CDT) HEPATITIS C ANTIBODY Non-Reacti ve Non-React suly 04/12/2024 4:07 AM CDT [facility] Comment:Please note, per www [...] Kapadia MD SEND OUTS Performing Organization Address City/[facility] Co de Phone Number [facility] TriV[facility]-CENTRAL LABORATORY [address] [place] [address], * ANTI HIV 1/2 (04/11/2024 11:49 AM CDT) HIV-1/HIV-2 SCREEN Non-Reacti ve Non-Reacti ve 04/12/2024 2:49 AM CDT [facility] LABORATORY-[facility] TRAL LABORATORY Comment:HIV-1 p24 and HIV-1/ HIV-2 Ab Not Detected. Blood BLOOD SPECIMEN / Unknown Venipuncture / Unknown 04/11/2024 11:49 AM CDT 04/11/2024 11:50 AM CDT Rose Kapadia MD SEND OUTS Performing Organization Address [facility] de Phone Number [facility]-CENTRAL LABORATORY [address] [place] [address], from Last 3 Months or Most Recently Relevant to Health Maintenance Care Teams Wood Carving Lathe Operator Relationship Specialty Start Date End Date Clinic, [facility] [address] [place] [address] PCP - General 07/11/24 Nia Pritchard DO [address] [place] [address] Family Practice 04/11/24
== END 2024-08-22 11:08 | disposition home or self-care (01) ==
LOC: NFLDREF 08-27 17:40
PROVIDERS: PCP Surgery; Referring Provider Surgery; Visit Provider Obstetrics & Gynecology
DX: E03.9 Hypothyroidism, unspecified (principal)
CPT/HCPCS: 84443

== ENCOUNTER 2024-08-30 08:47 | Day surgery (SDC) | payer BC, SELFPAY ==
[2024-08-30] VITALS (7 sets, daily range): BP systolic 85–121; BP diastolic 46–91; PULSE 51–98; RESP 14–16; TEMP 36.7–37.2; O2SAT 93–99; BMI 35.4
--- OUTSIDE RECORDS SUMMARY | 2024-08-30 08:53 | XMS_ITS | Clinical Summary ---
Author Organization [facility] s & [facility] [place] [address] Care Team Providers Care Community Engagement Coordinator Name Role Phone Nia Pritchard DO Unavailable [phone] [facility], [facility] Primary Care Pr ovider Allergies Active Allergy Reactions Criticality Noted Date Comments Amoxicillin-Pot Clavulanate Rash 01/04/2015 Clindamycin Paresthesias 08/07/2015 Diatrizoate Allergen Hives,Shortness Of Breath 12/06/2008 CT contrast Sumatriptan Hives,Shortness Of Breath 09/21/2013 Also had tingling in arms and head. Iodine Hives 07/18/2015 Cephalexin Shortness Of Breath 07/08/2014 See ER notes from 05-10-14, med reaction vs conversion disorder Ltsocxa-Jsqcycspf-Ozi taminophn Rash 09/28/2014 Adhesive Rash 07/18/2015 Skin [...] for Nausea/Vomiting . 30 Tablet 04/01/2024 Active 59-fnup-hykpbf 6-dha 30 mg iron-1mg -200 mg cap Take by mouth. 04/01/2024 Active Active Problems Problem Noted Date Diagnosed Date 04/11/2024 Overview (04/12/2024): Primary OB patient of Preferred name: Pili Language/cultural preferences: Mongolian OB HISTORY / PERTINENT MEDICAL HISTORY: Dating [...] (04/12/2015): Referred to as daily headaches at [place]; possible migraine without aura at [facility] [...] Department Care Team Description 07/29/2024 Orders Only [facility] Scanner 1 scan: (1-Ord) [facility], SONOHYSTEROGRAM, 07/29/2024 07/19/2024 Lab Requisition [facility] [phone] Tamar Wiseman MD from Last 3 Months [...] Asthma Maternal Grandfather Heart Disease Maternal Grandfather [place] wit h stents placed Asthma Maternal Grandmother [...] Tamar Wiseman MD LABORATORY Performing Organization Address [facility] Co de Phone Number [facility] [employer] Electronic TechnologyCENTRAL LABORATORY [address] [place] [address], [place] * WB (07/19/2024 11:45 AM CDT) Blood (Peripheral Blood) Client Collect / Unknown 07/19/2024 11:45 AM CDT 07/19/2024 11:14 PM CDT Tamar Wiseman MD LABORATORY Performing Organization Address [facility] Co oh Phone Number [facility] [employer] TechnologyTakepin LABORATORY [address] [place] [address], [place] * QB (07/19/2024 11:45 AM CDT) Blood (Peripheral Blood) Client Collect / Unknown 07/19/2024 11:45 AM CDT 07/19/2024 11:14 PM CDT Tamar Wiseman MD LABORATORY Performing Organization Address [facility] Co de Phone Number [facility] [employer] Technology[employer] LABORATORY [address] [place] [address], [place] * CHROM TECH 2 (07/19/2024 11:45 AM CDT) Blood (Peripheral Blood) Client Collect / Unknown 07/19/2024 11:45 AM CDT 07/19/2024 11:14 PM CDT Tamar Wiseman MD LABORATORY Performing Organization Address [facility] Co de Phone Number [facility] [employer] TechnologyCENTRAL LABORATORY [address] [place] [address], [place] * CHROM TECH 1 (07/19/2024 11:45 AM CDT) Blood (Peripheral Blood) Client Collect / Unknown 07/19/2024 11:45 AM CDT 07/19/2024 11:14 PM CDT Tamar Wiseman MD LABORATORY Performing Organization Address City/[facility]/ZIP Co de Phone Number [facility] Dizko SamuraiCENTRAL LABORATORY [address] [place] [address], [place] * CB CHROM (07/19/2024 11:45 AM CDT) Blood (Peripheral Blood) Client Collect / Unknown 07/19/2024 11:45 AM CDT 07/19/2024 11:14 PM CDT Tamar Wiseman MD LABORATORY Performing Organization Address City/[facility]/ZIP Co de Phone Number [facility] Diz[employer] SamuraiCENTRAL LABORATORY [address] [place] [address], [place] * WC (07/19/2024 11:45 AM CDT) Blood (Peripheral Blood) Client Collect / Unknown 07/19/2024 11:45 AM CDT 07/19/2024 11:14 PM CDT Tamar Wiseman MD LABORATORY Performing Organization Address City/[facility] Co de Phone Number [facility]ITALLegalSherpaCENTRAL LAB[facility]ATORY [address] [place] [address], [place] * CYTOGENETIC CONGENITAL BLOOD STUDIES (07/19/2024 11:45 AM CDT) RFR Recurrent Loss 07/29/2024 5:18 PM CDT [facility]IT[facility]egalSherpa ENTRAL LABORATORY TEST & RESULT SUMMARY Chromosome Analysis: Normal female karyotype. 07/29/2024 5:18 PM CDT [facility]egal[facility] ENTRAL LABORATORY _ 07/29/2024 5:18 PM CDT [employer] ENTRAL LABORATORY ISCN 46,XX 07/29/2024 5:18 PM CDT [facility] [employer]- ENTRAL LABORATORY INTERPRETATION Chromosome analysis revealed a normal female karyotype with no numeric or structural chromosome abnormalities detected. 07/29/2024 5:18 PM CDT [employer] ENTRAL LABORATORY LAB TEST DETAILS Fully Analyzed Metaphases: ??8 Partially Analyzed Metaphases: ??12 Full Karyotypes: ??2 Band Length Range: ??550-575 07/29/2024 5:18 PM CDT [facility]ITALm2p-labs [facility] ENTROH LABORATORY SOURCE Peripheral Blood (10ml NaHep) 07/29/2024 5:18 PM CDT [facility] [employer] [facility] ENTROH LABORATORY METHODS Cultures used in chromosome analysis may include synchronized and/or unsynchronized cultures. ?? Chromosome analysis is performed selecting the highest quality inside account representative G-banded metaphases available. A minimum of six metaphases were fully analyzed. 07/29/2024 5:18 PM CDT [facility]ITAL[facility]-l[facility] LABORATORY DISCLAIMER This test was developed and its performance characteristics determined by the [employer] [facility]. It has not been cleared [...] clinical laboratory testing. 07/29/2024 5:18 PM CDT [employer] [facility] LABORATORY Blood (Peripheral Blood) Client Collect / Unknown 07/19/2024 11:45 AM CDT 07/19/2024 11:14 PM CDT Tamar Wiseman MD LABORATORY Performing Organization Address City/State/[facility] Co de Phone Number [facility]ITALm2p-labs [facility] [address] [place] [address] * ANTI HCV (04/11/2024 11:49 AM CDT) HEPATITIS C ANTIBODY Non-Reacti ve Non-React suly 04/12/2024 4:07 AM CDT [facility] TRAL [facility] Comment:Please note, per www [...] Kapadia MD SEND OUTS Performing Organization Address City/[facility] Co de Phone Number [facility] [employer]-CENTRAL LABORATORY [address] [place] [address], * ANTI HIV 1/2 (04/11/2024 11:49 AM CDT) HIV-1/HIV-2 SCREEN Non-Reacti ve Non-Reacti ve 04/12/2024 2:49 AM CDT [facility] LABORATORY-[facility] TRAL LABORATORY Comment:HIV-1 p24 and HIV-1/ HIV-2 Ab Not Detected. Blood BLOOD SPECIMEN / Unknown Venipuncture / Unknown 04/11/2024 11:49 AM CDT 04/11/2024 11:50 AM CDT Rose Kapadia MD SEND OUTS Performing Organization Address [facility] de Phone Number [facility] [employer]-CENTRAL LABORATORY [address] [place] [address], from Last 3 Months or Most Recently Relevant to Health Maintenance Care Teams Community Engagement Coordinator Relationship Specialty Start Date End Date Clinic, [facility] [address] [place] [address] PCP - General 07/11/24 Nia Pritchard DO [address] [place] [address] Family Practice 04/11/24
[2024-08-30] MEDS: SODIUM CHLORIDE 0.9 % (FLUSH) 10 ML SYRINGE IVF (09:31)
[2024-08-30] MEDS: LACTATED RINGERS 1000 ML 1,000 ML 100 ML IV (09:32)
[2024-08-30 09:47] LABS: Ur HCG Qualitative* Negative (Negative)
[2024-08-30] MEDS: BUPIVACAINE 0.5% 30 ML INJECTION (10:40)
--- NOTE | 2024-08-30 11:14 | W.ANESCHARGE ---
Anesthesia Charges Start Date/Time Anesthesia Start Date: 08/30/24 Anesthesia Start Time: 10:15 Stop Date/Time Anesthesia Stop Date: 08/30/24 Anesthesia Stop Time: 11:00
--- NOTE | 2024-08-30 11:44 | P.GYNPRC_ITS ---
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 septate uterus Procedure: Hysteroscopy Targeted dilation and curettage with Truclear Anesthesia: MAC and local Complications: None Surgeon: Otoniel Wiseman Estimated blood loss (mL): 5 IV fluids (mL): 800 Urine Output (mL): 200 Pathology: specimen obtained, sent to pathology Condition: stable Disposition: same day Findings: Unremarkable external genital and vaginal exam Largely unremarkable endometrial appearance, filmy excess tissue at posterior lower uterine segment Small fundal indentation consistent with likely arcuate uterus (vs bicornuate vs septate uterus) Procedure Description: Procedure in detail: Patient was taken to the operating room with IV running. She was positioned in dorsal lithotomy position with her legs fully supported in Yellofin stirrups. Monitored anesthesia care was administered. She was prepped and draped in the usual sterile fashion. Speculum was inserted. Cervix visualized and grasped along the anterior lip with a single-tooth tenaculum. Paracervical block with 0.5% marcaine was performed bilaterally in the usual fashion, total 20mL. Uterus sounds to 7cm. Cervix was serially dilated to accommodate the TRUCLEAR hysteroscope. This was assembled with saline inflow and outflow in place. The line was flushed of bubbles. The hysteroscope was advanced through the cervix into the endometrial cavity for the above noted findings. The tissue morcellator was then inserted through the operating channel. Window lock was performed. Under direct vis ualization, the thin/whispy excess tissue at the posterior uterus was resected. This was easily resected, visual appearance consistent with likely normal proliferative endometrium. Fundal contour notable for indentation of <1cm. Pili had a prior pelvic US but has not had an HSG due to iodinated contrast allergy. She has no known m?llerian anomaly, where we have not had a definitive assessment of the uterine contour to exclude the possibility of bicornuate uterus. As such, I did not feel it was in her best interest to attempt resection of the arcuate tissue (vs possible septum). In addition, this was an unanticipated finding where she is not consented for a laparoscopic procedure. Intraoperative consultation was requested, where Dr. Maciel did present to the OR. She agreed with my impression of likely arcuate uterus and plan of care. The hysteroscope and morcellator were then removed from the uterus. Tenaculum was removed from the anterior lip of cervix. Hemostasis was noted. Patient tolerated procedure well. She was taken to recovery area in stable condition. Post-operatively, I did debrief with Pili and her Mansi. I explained my findings. We discussed next steps including 3D US or MRI for definitive characterization of possible Mullerian anomaly. I explained 3D US for this purpose is not routinely offered at our facility, where I would recommend refer ral to [facility] for a 3D US and counseling on next steps. I explained that many patients conceive successfully with an arcuate or bicornuate uterus. Reviewed potential risks including SAB, labor/ and malpresentation. Still, I explained that often an arcuate uterus is expectantly managed unless it is highly suspicious to be the etiology behind a patient's recurrent loss. Rarely, resection of the arcuate indentation may be performed hysteroscopically. In Pili's case, I am far more suspicious that her RPL could be secondary to untreated hypothyroidism. She has had normalization of her thyroid function tests on synthroid 100mcg. Referral to [facility] placed for 3D US and RPL consult. Explained that it is not unsafe for her to attempt in the mean time, however her diagnostic evaluation is technically incomplete until her potential Mullerian anomaly is definitely evaluated. Pili and Mansi express understand and agreeable to next steps. All questions answered.
[2024-08-30] MEDS: OXYCODONE 5 MG TABLET PO (11:45)
--- NOTE | 2024-08-30 13:00 | W.ANESCHARGE ---
Anesthesia Charges Start Date/Time Anesthesia Start Date: 08/30/24 Anesthesia Start Time: 10:15 Stop Date/Time Anesthesia Stop Date: 08/30/24 Anesthesia Stop Time: 11:00
--- NOTE | 2024-08-30 13:37 | SUR.PHASEII ---
pt did well. Pain medication given for cramps. upon discharge pt states pain was better. Dr. Wiseman was in to see pt. Pt ambulated out to car with her .
== END 2024-08-30 12:35 | disposition home or self-care (01) ==
LOC: OR 08:48
PROVIDERS: PCP Surgery; Visit Provider Obstetrics & Gynecology
PROC: 0UDB8ZZ Extraction of Endometrium, Via Natural or Artificial Opening Endoscopic (ICD-10-PCS; CPT 58558; principal; 2024-08-30 10:00)
DX: N96 Recurrent pregnancy loss (principal); R93.89 Abnormal findings on diagnostic imaging of other specified body structures; R87.89 Other abnormal findings in specimens from female genital organs; E03.9 Hypothyroidism, unspecified
CPT/HCPCS: 58558; 00952; 36415; 81025; 85018; 86850; 86900; 86901; 88305; A9270; C1782; J0665; J1100; J1885; J2405; J2704; J3010; J7120

== ENCOUNTER 2024-10-17 13:21 | Outpatient (CLI) | payer BC, SELFPAY ==
--- OUTSIDE RECORDS SUMMARY | 2024-10-21 07:04 | XMS_ITS | Clinical Summary ---
Author Organization [facility] Address [place], [place] [address] Care Team Providers Care Pipe Jeeper Name Role Phone Nia Pritchard DO Unavailable [phone] [facility], [facility] Primary Care Pr ovider Allergies Active Allergy Reactions Criticality Noted Date Comments Amoxicillin-Pot Clavulanate Rash 01/04/2015 Clindamycin Paresthesias 08/07/2015 Diatrizoate Allergen Hives,Shortness Of Breath 12/06/2008 CT contrast Sumatriptan Hives,Shortness Of Breath 09/21/2013 Also had tingling in arms and head. Iodine Hives 07/18/2015 Cephalexin Shortness Of Breath 07/08/2014 See ER notes from 05-10-14, med reaction vs conversion disorder Smjllxt-Tdoidtfyw-Yfh taminophn Rash 09/28/2014 Adhesive Rash 07/18/2015 Skin [...] for Nausea/Vomiting . 30 Tablet 04/01/2024 Active 60-pybm-cdeuuk 6-dha 30 mg iron-1mg -200 mg cap Take by mouth. 04/01/2024 Active Active Problems Problem Noted Date Diagnosed Date 04/11/2024 Overview (04/12/2024): Primary OB patient of Preferred name: Pili Language/cultural preferences: Emir[place] OB HISTORY / PERTINENT MEDICAL HISTORY: Dating [...] (04/12/2015): Referred to as daily headaches at [place]; [facility] [...] Encounters Date Type Department Care Team Description 08/30/2024 Orders Only [facility] Scanner 1 scan: (1-Ord) [facility], HYSTEROSCOPY, 08/30/2024 08/30/2024 Lab Requisition [facility] [phone] Tamar Wiseman MD 07/29/2024 Orders Only [facility] Scanner 1 scan: (1-Ord) [facility], SONOHYSTEROGRAM, 07/29/2024 from Last 3 Months Immunizations Name Administration [...] Asthma Maternal Grandfather Heart Disease Maternal Grandfather HI wit h stents placed Asthma Maternal Grandmother [...] 104 05/19/2024 3:44 AM CDT Temperature 36.8 C (98.3 F) 05/19/2024 3:44 AM CDT Respiratory Rate 18 05/19/2024 3:44 AM CDT [...] 08/02/2020 08/02/2010 COVID-19 vaccine series ( season) 2024 Influenza for age 9-49 07/31/2024 [...] Procedure Name Priority Date/Time Associated Diagnosis Comments LAB TRACKING EVENT Routine 08/30/2024 10 :45 AM CDT PATH TISSUE EXAM Routine 08/30/2024 10:4 5 AM CDT SCAN-OPERATIVE/PROC EDURE REPORT 08/30/2024 12:00 AM CDT SCAN-OPERATIVE/PROC EDURE REPORT 07/29/2024 12:00 AM CDT ANTI HIV 1/2 Routine 04/11/2024 11:49 AM CDT Encounter for supervision of other normal in first trimester ANTI HCV Routine 04/11/2024 11:49 AM CDT Encounter for supervision of other normal in first trimester from Last 3 Months or Most Recently Relevant to Health Maintenance Results * LAB TRACKING EVENT (08/30/2024 10:45 AM CDT) Other (Other) Client Collect / Unknown 08/30/2024 10:45 AM CDT 08/30/2024 10:19 PM CDT Tamar Wiseman MD LAB BILL ONLY [facility] [address] [place] [address], * PATH TISSUE EXAM (08/30/2024 10:45 AM CDT) Case Report Pathology Report Case: [id number] Authorizing Provider: Tamar Wiseman MD Collected: 08/30/2024 1045 Ordering Location: [facility] Received: 08/31/2024 0828 Pathologist: Alexandre Burnett MD Specimen: Endometrial Curettings 09/02/2024 12:52 PM CDT [facility] Final Diagnosis A) ENDOMETRIUM, CURETTAGE: 1. Negative for endometrial tissue in this specimen following processing 2. Recommend repeat endometrial tissue sampling, as clinically indicated 09/02/2024 12:52 PM CDT [facility] Clinical Information Persistent infertility 09/02/2024 12:52 PM CDT [facility] Gross Description A) Received in formalin, labeled with the patient's name and endometrial curettings, is a cloth stockinette with 3 possible white tissues measuring 0.2 cm in greatest aggregate dimension. The specimen is entirely submitted in 1 cassette. TRB 08/31/2024 09/02/2024 12:52 PM CDT [facility] Microscopic Description The final diagnosis is based on microscopic examination of appropriate sections of all specimens. Additional levels were examined. 09/02/2024 12:52 PM CDT [facility] Additional Information Interpreted at [facility] - [address], [place] [address] 09/02/2024 12:52 PM CDT [facility] Other (Endometrial Curettings) 08/30/2024 10:45 AM CDT 08/31/2024 8:28 AM CDT Tamar Violette Ivone MD PATHOLOGY/CYTOLO GY Performing Organization Address [facility]/ZIP Co de Phone Number [facility] [address] [place] [address] * SCAN-OPERATIVE/PROCEDURE REPORT (08/30/2024 12:00 AM CDT) Scanner OTHER * SCAN-OPERATIVE/PROCEDURE REPORT (07/29/2024 12:00 AM CDT) Scanner OTHER * ANTI HCV (04/11/2024 11:49 AM CDT) HEPATITIS C ANTIBODY Non-Reacti ve Non-React suly 04/12/2024 4:07 AM CDT [facility] Comment:Please note, per www [...] Kapadia MD SEND OUTS Performing Organization Address [facility] Co de Phone Number [facility] [address] [place] [address], * ANTI HIV 1/2 (04/11/2024 11:49 AM CDT) HIV-1/HIV-2 SCREEN Non-Reacti ve Non-Reacti ve 04/12/2024 2:49 AM CDT [facility] Comment:HIV-1 p24 and HIV-1/ HIV-2 Ab Not Detected. Blood BLOOD SPECIMEN / Unknown Venipuncture / Unknown 04/11/2024 11:49 AM CDT 04/11/2024 11:50 AM CDT Rose Kapadia MD SEND OUTS [facility] [address] [place] [address], from Last 3 Months or Most Recently Relevant to Health Maintenance Care Teams Pipe Jeeper Relationship Specialty Start Date End Date Clinic, [facility] [address] [place] [address] PCP - General 07/11/24 Nia Pritchard DO [address] [place] [address] Family Practice 04/11/24
--- OUTSIDE RECORDS SUMMARY | 2024-10-21 07:04 | XMS_ITS | Clinical Summary ---
Author Organization [facility] Address [address] [place] [address] Care Team Providers Care Human Resource Management Instructor Name Role Phone None Reported, Pcp Primary Care Provider Unavail able Source Comments Patient records contain information from all sites at [facility]. For routine questions regarding patient records, call [phone] during business hours, M-F 8:00 AM - 5:00 PM Central Time. Record requests for emergency care only can be directed to [phone] at any time.[facility] Allergies Active Allergy Reactions Criticality Noted Date Comments Adhesive Rash 07/18/2015 Skin comes off Amoxicillin-Pot Clavulanate Rash 01/04/2015 Cephalexin Anaphylaxis,Shortnes s of breath (Reselect Reaction) High 07/08/2014 See ER notes from 05-10-14, med reaction vs conversion disorder hives Clindamycin Other (see comments) 08/07/2015 Diatrizoate Meglumine Hives (Reselect Reaction),Shortness of breath (Reselect Reaction) 12/06/2008 CT contrast Gadolinium-Containing Contrast Media Anaphylaxis High 04/12/2012 Vhrwhrb-Lryfaqiwn-Wpz taminophn Anaphylaxis,Rash High 09/28/2014 Omnipaque Rediflo 240 Anaphylaxis High 01/18/2008 Sumatriptan Hives (Reselect Reaction),Shortness of breath (Reselect Reaction),Anaphylaxis High 09/21/2013 Also had tingling in arms and head. Medications levothyroxine 25 mcg tablet Take 100 mcg by mouth daily before morning meal. 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 Shortness Of Breath (Primary Dx) Discharge Disposition: Home or Self Care from Last 3 Months Immunizations Name Administration Dates Next Due influenza vaccine quad (FLUZ ONE/FLUARIX) (6 months and older)(PF) 10/12/2015 Social History Tobacco Use Types Packs/Day Years Used Date Smoking Tobacco: Never Nutrition Answer Date Recorded Nutrition: EVOO Fat Source 13 05/11 Nutrition: Servings of Fruits/Vegetables per Day Not on file 05/11/2019 Dental Answer Date Recorded Dental: Regular Dentist Unknown 09/04/20 24 Comments Unknown Sex and Gender Information Value Date Recorded Sex Assigned at Not on file Legal Sex Female 10:55 AM QUARTZ MOUNTER Gender Identity Not on file Sexual Orientation Not on file Last Filed Vital Signs Vital Sign Reading Time Taken Comments Blood Pressure 111/63 09/04/2024 4:45 AM CDT Pulse 114 09/04/2024 4:58 AM CDT Temperature 36.2 C (97.2 F) 09/04/2024 4:58 AM CDT Respiratory Rate 18 09/04/2024 4:45 AM CDT Oxygen Saturation 98% 09/04/2024 4:58 AM CDT Inhaled Oxygen Concentration - - Weight 101 kg (222 lb 0.1 oz) 09/04/2024 3:19 AM CDT Height 167 cm (5' 5.75) 10/20/2016 8:03 AM QUARTZ MOUNTER Body Mass Index 36.11 10/20/2016 8:03 AM QUARTZ MOUNTER Plan of Treatment Health Maintenance Due Date Last Done Comments Cervical/Vaginal Cancer Screening 1998 HIV Screening 1998 Hepatitis C Screening 1998 Pneumococcal vaccine (0-64 y ears) (1 of 2 - PCV) 2004 HPV Vaccines (1 - 3-dose series) 2013 DTaP,Tdap,and Td Vaccines (7 - Td or Tdap) 08/02/2020 08/02/2010, 07/19/2002, 07/29/1999, Additional history exists Depression Screening (Annual PHQ-2) 11/30/2023 COVID-19 Vaccine ( - 2023-2 5 season) 2024 Influenza Vaccine (#1) 2024 7, 10/12/2015, 10/31/2011, Additional history exists Asthma Action Plan 09/04/2024 Asthma Control Test Questionnaire 09/04/2024 Asthma Management/Exacerbati on Questionnaire (AMQ/AEQ) 09/04/2024 Thyroid Stimulating Hormone (TSH) test for thyroid function 09/04/2025 09/04/2024 Hepatitis B Vaccines Completed 04/10/1999, 1998, 1998 IPV Vaccines Completed 06/27/2002, 07/1998, 1998 Chlamydia and Gonorrhea Screening Discontinued 015 Procedures Procedure Name Priority Date/Time Associated Diagnosis Comments VBG WITH LACTATE, POCT, B STAT 09/04/2024 3:46 AM CDT THYROID-STIMULATI NG HORMONE-SENSITIVE (S-TSH) STAT 09/04/2024 3:46 AM CDT D-DIMER, P STAT 09/04/2024 3:46 AM CDT BASIC METABOLIC PANEL, S/P STAT 09/04/2024 3:46 AM CDT CBC WITH DIFFERENTIAL, B STAT 09/04/2024 3:46 AM CDT DX CHEST AP OR PA AND LATERAL 2 VIEWS RAD - Semiurgent (Fast; most ED patients; some inpatients) 09/04/2024 3:37 AM CDT ECG STAT 09/04/2024 3:22 AM CDT CHLAMYDIA/GONORRH OEAE AMPLIFIED RNA Routine 04/23/2015 8:19 AM CDT from Last 3 Months or Most Recently Relevant to Health Maintenance Results * (ABNORMAL) Venous Blood Gas with Lactate, POCT, B (09/04/2024 3:46 AM CDT) pH, Venous, POCT, B 7.44(H) 7.32 - 7.43 09/04/2024 4:07 AM CDT [facility] pCO2, Venous, POCT, B 39(L) 41 - 51 mm Hg 09/04/2024 4:07 AM CDT [facility] pO2, Venous, POCT, B 33 Not applicable mm Hg 09/04/2024 4:07 AM CDT [facility] HCO3, Venous, POCT, B 26 Not applicable mmol/L 09/04/2024 4:07 AM CDT [facility] Base Excess, Venous, POCT, B 2 Not applicable mmol/L 09/04/2024 4:07 AM CDT [facility] O2 Saturation, Venous, POCT, B 66 Not applicable % 09/04/2024 4:07 AM CDT [facility] Sample Type, Blood Gas, POCT BALA 09/04/2024 4:07 AM CDT [facility] FIO2, POCT 19.00 [id number] 09/04/2024 4:07 AM CDT [facility] Comment: ----ADDITIONAL INFORMATION---- Performed at the Point of Care Lactate, POCT 1.48 0.50 - 2.20 mmol/L 09/04/2024 4:07 AM CDT [facility] Blood (Blood, Venous) 09/04/2024 3:46 AM CDT 09/04/2024 3:49 AM CDT us Zoila So APRN.N.P., D.N.P. LAB POCT O RDERABLES - DEVICE Final Result Performing Organization Address [facility] [[email or web address]] Co de Phone Number [facility] [address] [place] [phone], [facility] [place] [address] * D-Dimer (09/04/2024 3:46 AM CDT) D-Dimer, P <220 <=500 ng/mL FEU 09/04/2024 4:30 AM CDT [facility] Comment: ----ADDITIONAL INFORMATION---- D-dimer values less than or equal to 500 ng/mL fibrinogen equivalent units (FEU) may be used in conjunction with clinical pre-test probability to exclude deep vein thrombosis (DVT) and/or pulmonary embolism (PE). Blood (Blood, Venous) 09/04/2024 3:46 AM CDT 09/04/2024 4:20 AM CDT us Zoila So APRN.N.P., D.N.P. LAB BLOOD ADD-ON Final Result Performing Organization Address City/[facility] [[email or web address]] Co de Phone Number [facility] [address] [place] [phone], [facility] in [address] [address] * (ABNORMAL) CBC with Differential, Blood (09/04/2024 3:46 AM CDT) Hemoglobin 12.5 11.6 - 15.0 g/dL 09/04/2024 4:15 AM CDT [facility] Hematocrit 37.6 35.5 - 44.9 % 09/04/2024 4:15 AM CDT [facility] Erythrocytes 4.54 3.92 - 5.13 x10(12)/L 09/04/2024 4:15 AM CDT [facility] MCV 82.8 78.2 - 97.9 fL 09/04/2024 4:15 AM CDT [facility] RBC Distrib Width 13.1 12.2 - 16.1 % 09/04/2024 4:15 AM CDT [facility] Platelet Count 403(H) 157 - 371 x10(9)/L 09/04/2024 4:15 AM CDT [facility] Leukocytes 9.9(H) 3.4 - 9.6 x10(9)/L 09/04/2024 4:15 AM CDT [facility] Neutrophils 6.00 1.56 - 6.45 x10(9)/L 09/04/2024 4:15 AM CDT [facility] Lymphocytes 2.78 0.95 - 3.07 x10(9)/L 09/04/2024 4:15 AM CDT [facility] Monocytes 0.97(H) 0.26 - 0.81 x10(9)/L 09/04/2024 4:15 AM CDT [facility] Eosinophils 0.12 0.03 - 0.48 x10(9)/L 09/04/2024 4:15 AM CDT [facility] Basophils 0.04 0.01 - 0.08 x10(9)/L 09/04/2024 4:15 AM CDT [facility] Blood (Blood, Venous) 09/04/2024 3:46 AM CDT 09/04/2024 4:01 AM CDT us Lori Marks APRN, C.N.P., D.N.P. LAB BLOOD ADD-ON Final Result [facility] [address] [place] [phone], [facility] CN[facility] in [address] [address] * (ABNORMAL) S-TSH (Thyroid-Stimulating Hormone - Sensitive) (09/04/2024 3:46 AM CDT) TSH, Sensitive 4.3(H) 0.3 - 4.2 mIU/L 09/04/2024 4:37 AM CDT [facility] Blood (Blood, Venous) 09/04/2024 3:46 AM CDT 09/04/2024 4:14 AM CDT us Zoila So APRN.N.P., D.N.P. LAB BLOOD ADD-ON Final Result [facility] [address] [place] [phone], [facility] in [address] [address] * Basic Metabolic Panel (09/04/2024 3:46 AM CDT) Potassium, P 4.0 3.6 - 5.2 mmol/L 09/04/2024 4:52 AM CDT [facility] Sodium, P 139 135 - 145 mmol/L 09/04/2024 4:52 AM CDT [facility] Chloride, P 103 98 - 107 mmol/L 09/04/2024 4:52 AM CDT [facility] Bicarbonate, P 23 22 - 29 mmol/L 09/04/2024 4:52 AM CDT [facility] Anion Gap, P 13 7 - 15 09/04/2024 4:52 AM CDT [facility] BUN (Blood Urea Nitrogen), P 13 6 - 21 mg/dL 09/04/2024 4:52 AM CDT [facility] Creatinine 0.68 0.59 - 1.04 mg/dL 09/04/2024 4:52 AM CDT [facility] Estimated GFR (eGFR) >90 >=60 mL/min/BSA 09/04/2024 4:52 AM CDT [facility] Comment: Estimated GFR calculated using the 2020 CKD_EPI creatinine equation. Calcium, Total, P 9.3 8.6 - 10.0 mg/dL 09/04/2024 4:52 AM CDT [facility] Glucose, P 109 70 - 140 mg/dL 09/04/2024 4:52 AM CDT [facility] Blood (Blood, Venous) 09/04/2024 3:46 AM CDT 09/04/2024 4:35 AM CDT us Lori Marks APRN, C.N.P., D.N.P. LAB BLOOD ADD-ON Final Result [facility] [address] [place] [phone], [facility] in [address] [address] * DX Chest AP or PA and Lateral 2 Views (09/04/2024 3:37 AM CDT) Anatomical Region Laterality Modality Chest, Thoracic RST LOS, Tho racic ARZ LOS, Thoracic FLA LOS N/A Digital Radiography Impressions 09/04/2024 3:39 AM CDT No acute findings. Clear chest. Narrative 09/04/2024 3:39 AM CDT EXAM: DX CHEST AP OR PA AND LATERAL 2 VIEWS COMPARISON: Chest radiograph 01/01/2015 FINDINGS: Lungs, Pleura and Airways: No pneumothorax, pleural effusion or focal airspace disease. Normal pulmonary vascular markings. No appreciable airway inflammation. Heart and Mediastinum: Normal heart size and mediastinal contours. Other: No acute osseous abnormality. Procedure Note Luis Alcantara M.D. - 09/04/2024 EXAM: DX CHEST AP OR PA AND LATERAL 2 VIEWS COMPARISON: Chest radiograph 01/01/2015 FINDINGS: Lungs, Pleura and Airways: No pneumothorax, pleural effusion or focalairspace disease. Normal pulmonary vascular markings. No appreciableairway inflammation. Heart and Mediastinum: Normal heart size and mediastinal contours. Other: No acute osseous abnormality. IMPRESSION: No acute findings. Clear chest. us Lori Marks APRN, C.N.P., D.N.P. IMG DIAGNO STIC IMAGING PROCEDURES Final Result * ECG 12 Lead (09/04/2024 3:22 AM CDT) Ventricular Rate ECG/Min 119 BPM MUSE NH Interval 158 ms MUSE QRSD Interval 80 ms MUSE QT Interval 324 ms MUSE QTC Interval 455 ms MUSE P [place] 42 degrees MUSE R [place] 69 degrees MUSE T Wave [place] 19 degrees MUSE 09/04/2024 3:22 AM CDT 09/04/2024 3:29 AM CDT Impressions MUSE - 09/04/2024 3:29 AM CDT Sinus tachycardia Nonspecific T wave abnormality When compared with ECG of 01-Jan-2015 20:55, No significant change was found Reviewed by PAULA Rivera Narrative Procedure Note Eber Macedo M.D. - 09/04/2024 IMPRESSION: Sinus tachycardia Nonspecific T wave abnormality When compared with ECG of 01-Jan-2015 20:55, No significant change was found Reviewed by PAULA Rivera us Lori Marks APRN, C.N.P., D.N.P. ECG ORDERA BLES Final Result Performing Organization Address City/[facility]/ZIP Co de Phone Number MUSE NA * Chlamydia / gonorrhoeae Amplified RNA (04/23/2015 8:19 AM CDT) Source (w/C. trach RNA) . [facility] Comment:URINE, [place] Chlamydia trachomatis amplified RNA Negative Negative [facility] Source (w/N. gonorr RNA) . [facility] Comment:URINE, [place] Neisseria gonorrhoeae amplified RNA Negative Negative [facility] 04/23/2015 8:19 AM CDT 04/23/2015 8:19 AM CDT us Alis Pérez M.D. LAB MICROBIOLOGY - GENERAL ORD ERABLES Final Result [facility] [address] from Last 3 Months or Most Recently Relevant to Health Maintenance Insurance [facility] Care Teams Human Resource Management Instructor Relationship Specialty Start Date End Date None Reported, Pcp PCP - General 10/07/24
--- OUTSIDE RECORDS SUMMARY | 2024-10-21 07:04 | XMS_ITS | Encounter Summary ---
Author Organization [facility] Address [address] [place] [address] Care Team Providers Care Credit Verification Clerk Name Role Phone Elsewhere, Pcp Primary Care Provider Unavailabl e Reason for Visit * Reason Comments Shortness of Breath 24 y/o F presenting to ED via private vehicle for evaluation of shortness of breath/chest tightness. Reports that she and her have been painting outside for the past few days and she was cleaning some paint brushes with paint thinner and had SOB/chest tightness. Did have one episode of emesis. Had some dizziness earlier but it has since improved. Encounter Details Date Type Department Care Team ([facility] Contact Info) Description 09/04/2024 3:30 AM CDT - 09/04/2024 5:08 AM CDT Emergency [facility] [address] [place] [address] [phone] Lori Marks, LUIS, C.N.P., D.N.P. [address] [place] [address] [phone] Shortness Of Breath (Primary Dx) Discharge Disposition: Home or Self Care Social History Tobacco Use Types Packs/Day Years Used Date Smoking Tobacco: Never Nutrition Answer Date Recorded Nutrition: EVOO Fat Source 13 05/11 Nutrition: Servings of Fruits/Vegetables per Day Not on file 05/11/2019 Dental Answer Date Recorded Dental: Regular Dentist Unknown 09/04/20 24 Comments Unknown Sex and Gender Information Value Date Recorded Sex Assigned at Not on file Legal Sex Female 10:55 AM DIRECTOR OF INDIVIDUAL GIVING Gender Identity Not on file Sexual Orientation Not on file documented as of this encounter Last Filed Vital Signs Vital Sign Reading Time Taken Comments Blood Pressure 111/63 09/04/2024 4:45 AM CDT Pulse 114 09/04/2024 4:58 AM CDT Temperature 36.2 C (97.2 F) 09/04/2024 4:58 AM CDT Respiratory Rate 18 09/04/2024 4:45 AM CDT Oxygen Saturation 98% 09/04/2024 4:58 AM CDT Inhaled Oxygen Concentration - - Weight 101 kg (222 lb 0.1 oz) 09/04/2024 3:19 AM CDT Height - - Body Mass Index 36.11 10/20/2016 8:03 AM DIRECTOR OF INDIVIDUAL GIVING documented in this encounter Discharge Instructions * Discharge Instructions* Lori Marks APRN, C.N.P., D.N.P. - 09/04/2024 4:55 AM CDT Follow-up with your primary care provider as needed. Utilize your inhalers as previously prescribed. Return to the ED for new or worsening symptoms including chest pain and shortness of breath. Be sure to provide proper ventilation when using noxious products such as pain thinner. documented in this encounter Medications at Time of Discharge levothyroxine 25 mcg tablet Take 100 mcg by mouth daily before morning meal. documented as of this encounter ED Notes * Lori Marks APRN, C.N.P., D.N.P. - 09/04/2024 3:08 AM CDT SUBJECTIVE CHIEF COMPLAINT/REASON FOR VISIT Shortness of Breath (24 y/o F presenting to ED via private vehicle for evaluation of shortness of breath/chest tightness. Reports that she and her have been painting outside for the past few days and she was cleaning some paint brushes with paint thinner and had SOB/chest tightness. Did have one episode of emesis. 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 Pili Cavazos is a 24-year-old female who presents via private vehicle accompanied by her spouse with complaints of shortness of breath and chest tightness. Documented history of mild persistent asthma, chronic headaches, postural orthostatic tachycardia syndrome, neurological spells, and conversion disorder. Patient shares she and her have been painting outside for the last several days. Symptoms started suddenly while cleaning the brushes with paint thinner inside her home. Was dizzy but this has now resolved. Did have one episode of emesis. Shortness of breath slightly improved with inhaler use. Spouse reports her color looks better now in the ED. Last menstrual cycle was 08/18/2024. REVIEW OF SYSTEMS Respiratory: See HPI above. OBJECTIVE Initial Vitals Temperature 09/04/24 0307 36.5 ??C Pulse Rate 09/04/24 0307 (!) 116 Heart Rate 09/04/24 0307 (!) 115 Resp Rate 09/04/24 0307 22 Blood Pressure 09/04/24 0307 121/80 SpO2 09/04/24 0307 100 % Pain Score 09/04/24 0315 6 PHYSICAL EXAMINATION Constitutional: Nursing note and vitals reviewed. No distress. HENT: Head: Normocephalic. Mouth/Throat: Oropharynx is clear and moist. Mucous membranes are moist. Eyes: Conjunctivae and EOM are normal. Neck: Neck supple. No tracheal deviation present. Cardiovascular: S1 normal and S2 normal. Tachycardia present. Pulses are strong. Capillary refill: takes less than 3 seconds Pulmonary/Chest: Effort normal and breath sounds normal. There is normal air entry. No stridor. No respiratory distress. She has no wheezes. She has no rhonchi. She has no rales. She exhibits no retraction. Abdominal: Soft. exhibits no distension. There is no abdominal tenderness. There is no rebound and no guarding. Musculoskeletal: General: Normal range of motion. Cervical back: Normal range of motion and neck supple. Neurological: Alert. She is not disoriented. Coordination normal. Skin: Skin is warm, dry and intact. She is not diaphoretic. Psychiatric: She has a normal mood and affect. Behavior is normal. ASSESSMENT/PLAN 24-year-old female with a history of mild intermittent asthma presents via private vehicle tachycardic but otherwise afebrile and hemodynamically appropriate with complaints of chest tightness and shortness of breath that started suddenly while cleaning paint brushes with paint thinner inside her ho me. She and her spouse both comment on how symptoms and general appearance have improved since symptom onset. I am reassured by her hemodynamics and lack of respiratory distress. Is tachycardic in the 110s; documented history of POTS. Lungs are clear in all riggs and is saturating 100% on room air. Will obtain portable carbon monoxide reading although my index of suspicion is lower given she is the only one with symptoms in her home. Will maintain a broad differential and obtain screening labs including2 view chest x-ray for further evaluation. Differentials include but are not limited to inhalation injury, asthma exacerbation, pulmonary edema, pulmonary embolus, among others. ED Course as of 09/04/24 0459 Sun Sep 04, 2024 0330 ECG impression: Sinus tachycardia with a ventricular rate of 119 beats per minute and QTC of 455 milliseconds. Normal axis. Baseline ECG dated 01/01/2015. 0343 No tracheal deviation, pneumothorax, focal consolidation, or subdiaphragmatic air per my interpretation of chest x-rays. Agree with radiologist's impression: No acute findings. Clear chest. 0357 SpCO = 5 and SpMet = 0.5 on Masimo. 0411 Lactate, POCT: 1.48 Normal point of care lactate. 0411 pH, Venous, POCT, B(!): 7.44 Respiratory alkalosis with venous pH 7.44, pCO2 39, pO2 33, and bicarb 26. Base excess 2. 0417 2 L nasal cannula removed. Patient reports improvement in symptoms with chest tightness only present with deep inspiration. DuoNeb reportedly helpful. 0417 Leukocytes(!): 9.9 Slight leukocytosis. Normal neutrophil count. Hemoglobin within normal range. Platelet count up at 403. 0434 D-DIMER, P: <220 D-dimer normal. 0438 TSH, Sensitive(!): 4.3 Lab reference range 0.3 - 4.2. 0453 Creatinine: 0.68 No acute kidney injury or electrolyte derangement. Euglycemic. 0455 Diagnostic results were discussed with the patient and her spouse in plain, everyday language.All questions answered and concerns addressed. Verbalizes alleviation of symptoms and desire for discharge. Verbalizes she is not concerned with tachycardia, attributing it to her POTS history. Was encouraged to follow up with the primary for a recheck of elevated TSH and thrombocytosis. Strict ED return precautions. Discharged home via private vehicle. Final Diagnoses: as of 09/04/24 0459 Shortness Of Breath Lori Marks APRN, C.N.P., D.N.P. 09/04/24 0500 documented in this encounter Plan of Treatment Not on file documented as of this encounter Procedures Procedure Name Priority Date/Time Associated Diagnosis Comments VBG WITH LACTATE, POCT, B STAT 09/04/2024 3:46 AM CDT D-DIMER, P STAT 09/04/2024 3:46 AM CDT CBC WITH DIFFERENTIAL, B STAT 09/04/2024 3:46 AM CDT THYROID-STIMULATI NG HORMONE-SENSITIVE (S-TSH) STAT 09/04/2024 3:46 AM CDT BASIC METABOLIC PANEL, S/P STAT 09/04/2024 3:46 AM CDT DX CHEST AP OR PA AND LATERAL 2 VIEWS RAD - Semiurgent (Fast; most ED patients; some inpatients) 09/04/2024 3:37 AM CDT ECG STAT 09/04/2024 3:22 AM CDT documented in this encounter Results * (ABNORMAL) S-TSH (Thyroid-Stimulating Hormone - Sensitive) (09/04/2024 3:46 AM CDT) Pathologist [facility] TSH, Sensitive 4.3(H) 0.3 - 4.2 mIU/L 09/04/2024 4:37 AM CDT [facility] Blood (Blood, Venous) 09/04/2024 3:46 AM CDT 09/04/2024 4:14 AM CDT Lori Marks APRN, C.N.P., D.N.P. LAB BLOOD ADD-ON Final Result Performing Organization Address City/[facility]/[place] [address], [place] [address] * D-Dimer (09/04/2024 3:46 AM CDT) [facility] D-Dimer, P <220 <=500 ng/mL FEU 09/04/2024 4:30 AM CDT [facility] Comment: ----ADDITIONAL INFORMATION---- D-dimer values less than or equal to 500 ng/mL fibrinogen equivalent units (FEU) may be used in conjunction with clinical pre-test probability to exclude deep vein thrombosis (DVT) and/or pulmonary embolism (PE). Blood (Blood, Venous) 09/04/2024 3:46 AM CDT 09/04/2024 4:20 AM CDT Lori Marks APRN, C.N.P., D.N.P. LAB [place] [address], [place] [address] * Basic Metabolic Panel (09/04/2024 3:46 AM CDT) [facility] Potassium, P 4.0 3.6 - 5.2 mmol/L [...] C.N.P., D.N.P. LAB BLOOD ADD-ON Final Result [facility] [address] [place] [address], [facility] CNFL [facility] in [address] [address] * (ABNORMAL) CBC with Differential, Blood (09/04/2024 [...] C.N.P., D.N.P. LAB BLOOD ADD-ON Final Result [facility] [address] [place] [address], [facility] in [address] [address] * (ABNORMAL) Venous Blood Gas with Lactate, POCT, B (09/04/2024 3:46 AM CDT) Pathologist [facility] pH, Venous, POCT, B 7.44(H) 7.32 - [...] AM CDT 09/04/2024 3:49 AM CDT us Lori Marks APRN, C.N.P., D.N.P. LAB POCT O RDERABLES - DEVICE Final Result Performing Organization Address [facility]/State/ZIP Co de Phone Number [facility] [address] [place] [address], [facility] CNFL [facility] in [address] [address] * DX Chest AP or PA and [...] CDT) Ventricular Rate ECG/Min 119 BPM MUSE CA Interval 158 ms MUSE QRSD Interval 80 ms MUSE QT Interval 324 ms MUSE QTC Interval 455 ms MUSE P Stout 42 degrees MUSE R Stout 69 degrees MUSE T Wave Stout 19 degrees MUSE 09/04/2024 3:22 AM CDT [...] C.N.P., D.N.P. ECG ORDERA BLES Final Result MUSE NA documented in this encounter Visit Diagnoses Diagnosis Shortness Of Breath- Primary documented in this encounter Administered Medications Inactive Administered Medications - up to 3 most recent administrations Medication Order MAR Action Action Date Dose Rate Site ipratropium-albuteroL 0.5-2.5 mg/3 mL nebulizer solution 3 mL (DuoNeb) 3 mL, nebulization, Once, On 09/04/24 at 0332, For 1 dose Given 09/04/2024 3:48 AM CDT 3 mL NaCl 0.9 % bolus 1,000 mL 1,000 mL, intravenous, at 1,000 mL/hr, Administer over 1 Hours, Once, On 09/04/24 at 0332, For 1 dose New Bag 09/04/2024 3:53 AM CDT 1,000 mL 100 0 mL/hr sodium chloride 0.9 % injection 2-10 mL 2-10 mL, intravenous, As needed, line care, Starting on 09/04/24 at 0330 documented in this encounter Active and Recently Administered Medications Times are shown in CDT. Scheduled Medication Order 09/02/2024 09/03/2024 09/04/2024 ipratropium-albuteroL 0.5-2.5 mg/3 mL nebulizer solution 3 mL (DuoNeb) (COMPLETED) 3 mL, nebulization, Once, On 09/04/24 at 0332, For 1 dose 0348 (Given - Provid er: Tamar Hodgson R.N.) NaCl 0.9 % bolus 1,000 mL (COMPLETED) 1,000 mL, intravenous, at 1,000 mL/hr, Administer over 1 Hours, Once, On 09/04/24 at 0332, For 1 dose 0353 (New Bag - Prov ider: Tamar Hodgson R.N.)0455 (Stopped - Provider: Tamar Hodgson R.N.) PRN Medication Order 09/02/2024 09/03/2024 09/04/2024 sodium chloride 0.9 % injection 2-10 mL(Linked Group 1) 2-10 mL, intravenous, As needed, line care, Starting on 09/04/24 at 0330 Linked Groups Order Group 1: Place peripheral IV: No upper extremity site restrictions (COMPLETED) Upper extremity site restriction: No upper extremity site restrictions, Quantity of PIVs requested: One, STAT, Once, On 09/04/24 at 0331, For 1 occurrence And sodium chloride 0.9 % injection 2-10 mLJump to med 2-10 mL, intravenous, As needed, line care, Starting on 09/04/24 at 0330 documented in this encounter Care Teams Credit Verification Clerk Relationship Specialty Start Date End Date Elsewhere, Pcp PCP - General Internal Medicine 09/04/24 10/06/24 documented as of this encounter
--- OUTSIDE RECORDS SUMMARY | 2024-10-21 07:04 | XMS_ITS | Continuity of Care Document ---
Author Organization [facility] Address [address] [address] [place] [address] Phone Care Team Providers Care Pattern Changer Name Role Phone Arsen MURPHY, February Unavailable [...] Diagnoses Date Provider Providers Copied on Encounter [facility], [address] [address], [place], [id number], [place] tel:[phone] [facility] No Information 4 Arsen MURPHY February. [address] [facility], [place], [id number] , [place]. tel: [phone] [facility], [address] [address], [place], [id number], [place] tel:[phone] [facility] No Information 4 Arsen MURPHY February. [address] [facility], [place], [id number] , [place]. tel: [phone] Offic/outpt E&m Estab Low-mod [facility], [address] [address], [place], [id number], [place] tel:[phone] [facility] Abd Pain GeneralizedAbd Pain Generalized 3 Arsen MURPHY February. [address] [facility], [place], [id number] , [place]. tel:[phone] Referring Provider: Agatha [facility], [address] [place] [address], [place], [address]. tel:[phone] Offic/outpt E&m Estab Low-mod [facility], [address] [address], [place], [id number], [place] tel:[phone] [facility] Abdominal pain (chief complaint) Abd Pain Generalized Sep-2 6 3 Arsen MURPHY February. [address] [facility], [place], [place], [id number] , [place]. [phone] Referring Provider: Agatha George, [address] , [place], [address]. tel:[phone] [facility], [address] [address], [place], [id number], [place] tel:[phone] [facility] No Information Sep-0 3 [facility] [address] [facility], [place], [place], [id number] , [place]. [phone] Offic/outpt E&m Estab Low-mod [facility], [address] [address], [place], [place], [id number], [place] tel:[phone] [facility] Abdominal pain (chief complaint) Abd Pain GeneralizedAbd Pain Generalized 3 Asren MURPHY February. [address] [facility], [place], [place], [id number] , [place]. [phone] Referring Provider: Agatha George, [address] , [place], [address]. tel:[phone] Offic/outpt E&m Estab Mod-hi 2 [facility], [address] [address], [place], [id number], [place] tel:[phone] [facility] Abdominal pain (chief complaint) Abd Pain GeneralizedAbd Pain Generalized Apr-0 8201 3 Lucila MURPHY Nav. [address] [facility], [place], [place], [id number] , [place]. tel:[phone] Referring Provider: Agatha George, [address] , [place], [address]. tel:[phone] [facility], [address] [address], [place], [id number], [place] tel:[phone] [facility] Abd Pain Generalized Mar- 4-201 3 Lucila Chopra. [address] [facility] [address], [place], [id number] , [place]. tel: [phone] [facility], [address] [address], [place], [id number], [place] tel:[phone] [facility] Abd Pain Generalized Jan-0 3 Lucila Chopra. [address] [facility] [address], [address], [place], [place], [id number] , [place]. tel: [phone] [facility], [address] [address], [place], [id number], [place] tel:[phone] [facility] No Information Dec- 3 Lucila Chopra. [address] [facility] [address], [place], [place], [id number] , [place]. tel: [phone] [facility], [address] [address], [place], [id number], [place] tel:[phone] [facility] Abd Pain Generalized 3 Lucila Chopra. [address] [facility] [address], [place], [id number] , [place]. tel: [phone] Offic Cons New/estab Mod [facility], [address] [address], [place], [id number], [place] tel:[phone] [facility] Abdominal pain (chief complaint)Low er back pain (chief complaint)Vom iting, Temp Fluctuations (chief complaint) Abd Pain Generalized 3 Lucila Chopra. [address] [facility] [address], [place], [place], [id number] , [place]. tel: [phone] Family History Family Member Type Diagnosis Age [...] Polyps Payers Payer name Insurance type Covered libertarian ID Authoriza tion(s) No Information Social History [...]
--- OUTSIDE RECORDS SUMMARY | 2024-10-21 07:04 | XMS_ITS | Referral Summary ---
Author Organization [facility] Address [address] [place] [address] Care Team Providers Care Business Intelligence Analyst Name Role Phone None Reported, Pcp Primary Care Provider Unavail able Source Comments Patient records contain information from all sites at [facility]. For routine questions regarding patient records, call [phone] during business hours, M-F 8:00 AM - 5:00 PM Central Time. Record requests for emergency care only can be directed to [phone] at any time.[facility] Encounters Date Type Department Care Team Description 09/04/2024 3:30 AM CDT - 09/04/2024 5:08 AM CDT Emergency [facility] [address] [place] [phone] Lori Marks APRN, C.N.P., D.N.P. Shortness Of Breath (Primary Dx) Discharge Disposition: Home or Self Care from Last 3 Months Allergies Active Allergy Reactions Criticality Noted Date Comments Adhesive Rash 07/18/2015 Skin comes off Amoxicillin-Pot Clavulanate Rash 01/04/2015 Cephalexin Anaphylaxis,Shortnes s of breath (Reselect Reaction) High 07/08/2014 See ER notes from 05-10-14, med reaction vs conversion disorder hives Clindamycin Other (see comments) 08/07/2015 Diatrizoate Meglumine Hives (Reselect Reaction),Shortness of breath (Reselect Reaction) 12/06/2008 CT contrast Gadolinium-Containing Contrast Media Anaphylaxis High 04/12/2012 Ibueuto-Redkoblzo-Vwg taminophn Anaphylaxis,Rash High 09/28/2014 Omnipaque Rediflo 240 Anaphylaxis High 01/18/2008 Sumatriptan Hives (Reselect Reaction),Shortness of breath (Reselect Reaction),Anaphylaxis High 09/21/2013 Also had tingling in arms and head. Medications levothyroxine 25 mcg tablet Take 100 mcg by mouth daily before morning meal. 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 [address] [place] [address], [facility] [place] [address] * D-Dimer (09/04/2024 3:46 AM CDT) D-Dimer, [...] AM CDT 09/04/2024 4:20 AM CDT us Lori Marks APRN, C.N.P., D.N.P. LAB BLOOD ADD-ON Final Result [facility] [address] [place] [address], [facility] CNFL [facility] in [address] [address] * (ABNORMAL) CBC with Differential, Blood (09/04/2024 [...] AM CDT 09/04/2024 4:01 AM CDT us Zoila So APRN.N.P., D.N.P. LAB BLOOD ADD-ON Final Result Performing Organization Address [facility] [place] [address], [facility] [place] [address] * (ABNORMAL) S-TSH (Thyroid-Stimulating Hormone - Sensitive) (09/04/2024 3:46 AM CDT) TSH, Sensitive 4.3(H) 0.3 - 4.2 mIU/L 09/04/2024 4:37 AM CDT CNFL Blood (Blood, Venous) 09/04/2024 3:46 AM CDT 09/04/2024 4:14 AM CDT us Lori Marks APRN, Zoila.N.P., D.N.P. LAB BLOOD ADD-ON Final Result Performing Organization Address [facility] Co de Phone Number [address] [address], [place] [address] * Basic Metabolic Panel (09/04/2024 3:46 AM [...] C.N.P., D.N.P. LAB BLOOD ADD-ON Final Result [facility] [address] [place] [address], [facility] CNFL [facility] [place] [address] * DX Chest AP or PA and [...] CDT) Ventricular Rate ECG/Min 119 BPM MUSE CO Interval 158 ms MUSE QRSD Interval 80 ms MUSE QT Interval 324 ms MUSE QTC Interval 455 ms MUSE P Hutchinson 42 degrees MUSE R Hutchinson 69 degrees MUSE T Wave Hutchinson 19 degrees MUSE 09/04/2024 3:22 AM CDT [...] ECG ORDERA BLES Final Result MUSE NA * Chlamydia / gonorrhoeae Amplified RNA (04/23/2015 8:19 AM CDT) Source (w/C. trach RNA) . [facility] Comment:URINE, [facility] Chlamydia trachomatis amplified RNA Negative Negative [facility] Source (w/N. gonorr RNA) . [facility] Comment:URINE, FIRST VOID Neisseria gonorrhoeae amplified RNA Negative Negative [facility] 04/23/2015 8:19 AM CDT 04/23/2015 8:19 AM CDT Alis Pérez M.D. LAB MICROBIOLOGY - GENERAL ORD ERABLES Final Result [facility] [address] [place] [address], [facility] from Last 3 Months or Most Recently Relevant to Health Maintenance Insurance [facility] Care Teams Business Intelligence Analyst Relationship Specialty Start Date End Date None Reported, Pcp PCP - General 10/07/24
--- OUTSIDE RECORDS SUMMARY | 2024-10-21 07:04 | XMS_ITS ---
Author Organization [facility] Address [address] [place] [address] Care Team Providers Care Pharmacy Laboratory Technician Name Role Phone Unavailable Unavailable Unavailable Surgery Details Not on file Complications Check Surgery Details section. Procedure Estimated Blood Loss Check Surgery Details section. Procedure Findings Check Surgery Details section. Procedure Specimens Taken Check Surgery Details section.
== END 2024-10-17 13:22 | disposition home or self-care (01) ==
LOC: NFLDREF 10-21 07:02
PROVIDERS: PCP Surgery; Referring Provider Surgery; Visit Provider Obstetrics & Gynecology
DX: N96 Recurrent pregnancy loss (principal)
CPT/HCPCS: 84702

== ENCOUNTER 2024-10-19 10:54 | Outpatient (CLI) | payer BC, SELFPAY ==
--- OUTSIDE RECORDS SUMMARY | 2024-10-23 02:41 | XMS_ITS | Encounter Summary ---
Author Organization [facility] Address [address] [place] [address] Care Team Providers Care Cold Molding Press Operator Name Role Phone Elsewhere, Pcp Primary Care [...] Encounter Details Date Type Department Care Team ([facility] Contact Info) Description 09/04/2024 3:30 AM CDT - 09/04/2024 5:08 AM CDT Emergency [facility] [address] [place] [phone] Lori Marks, LUIS, C.N.P., D.N.P. 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 - 09/04/2024 4:55 AM [...] History provided by: Patient and medical records interpreter translator needed/used: no Ms. Pili Cavazos is a [...] - Sensitive) (09/04/2024 3:46 AM CDT) Pathologist [facility] TSH, Sensitive 4.3(H) 0.3 - 4.2 mIU/L 09/04/2024 4:37 AM CDT [facility] Blood (Blood, Venous) 09/04/2024 3:46 AM CDT 09/04/2024 4:14 AM CDT Lori Marks APRN, C.N.P., D.N.P. LAB BLOOD ADD-ON Final Result Performing Organization Address City/[facility]/[place] [address], [place] [address] * D-Dimer (09/04/2024 3:46 AM CDT) [facility] D-Dimer, P <220 <=500 ng/mL FEU 09/04/2024 4:30 AM CDT [facility] Comment: ----ADDITIONAL INFORMATION---- D-dimer values less than or equal to 500 ng/mL fibrinogen equivalent units (FEU) may be used in conjunction with clinical pre-test probability to exclude deep vein thrombosis (DVT) and/or pulmonary embolism (PE). Blood (Blood, Venous) 09/04/2024 3:46 AM CDT 09/04/2024 4:20 AM CDT Lori Marks APRN, C.N.P., D.N.P. LAB BLOOD [place] [address], [place] [address] * Basic Metabolic Panel (09/04/2024 3:46 AM CDT) [facility] Potassium, P 4.0 3.6 - 5.2 [...] C.N.P., D.N.P. LAB BLOOD ADD-ON Final Result [facility] [address] [place] [address], [facility] CNFL [facility] in [address] [address] * (ABNORMAL) CBC with Differential, Blood (09/04/2024 [...] C.N.P., D.N.P. LAB BLOOD ADD-ON Final Result [facility] [address] [place] [address], [facility] in [address] [address] * (ABNORMAL) Venous Blood Gas with Lactate, POCT, B (09/04/2024 3:46 AM CDT) Pathologist [facility] pH, Venous, POCT, B 7.44(H) 7.32 - [...] - DEVICE Final Result Performing Organization Address [facility]/State/ZIP Co de Phone Number [facility] [address] [place] [address], [facility] CNFL [facility] in [address] [address] * DX Chest AP or PA and [...] CDT) Ventricular Rate ECG/Min 119 BPM MUSE [place] Interval 158 ms MUSE QRSD Interval 80 ms MUSE QT Interval 324 ms MUSE QTC Interval 455 ms MUSE P [place] 42 degrees MUSE R [place] 69 degrees MUSE T Wave [place] 19 degrees MUSE 09/04/2024 3:22 AM CDT [...] 0330 documented in this encounter Care Teams Cold Molding Press Operator Relationship Specialty Start Date End Date Elsewhere, Pcp PCP - General Internal Medicine 09/04/24 10/06/24 documented as of this encounter
--- OUTSIDE RECORDS SUMMARY | 2024-10-23 02:41 | XMS_ITS | Clinical Summary ---
Author Organization [facility] Address [place], [place] [address] Care Team Providers Care Ammonia Operator Name Role Phone Nia Pritchard DO Unavailable [phone] [facility], [facility] Primary Care Pr ovider Allergies Active Allergy Reactions Criticality Noted Date Comments Amoxicillin-Pot Clavulanate Rash 01/04/2015 Clindamycin Paresthesias 08/07/2015 Diatrizoate Allergen Hives,Shortness Of Breath 12/06/2008 CT contrast Sumatriptan Hives,Shortness Of Breath 09/21/2013 Also had tingling in arms and head. Iodine Hives 07/18/2015 Cephalexin Shortness Of Breath 07/08/2014 See ER notes from 05-10-14, med reaction vs conversion disorder Wlauivp-Bnwztcxpi-Msp taminophn Rash 09/28/2014 Adhesive Rash 07/18/2015 Skin [...] for Nausea/Vomiting . 30 Tablet 04/01/2024 Active 63-yscv-mdljxk 6-dha 30 mg iron-1mg -200 mg cap Take by mouth. 04/01/2024 Active Active Problems Problem Noted Date Diagnosed Date 04/11/2024 Overview (04/12/2024): Primary OB patient of Preferred name: Pili Language/cultural preferences: Kosovan OB HISTORY / PERTINENT MEDICAL HISTORY: Dating [...] (04/12/2015): Referred to as daily headaches at [place]; possible migraine without aura at [facility] [...] Department Care Team Description 08/30/2024 Orders Only [facility] Scanner 1 scan: (1-Ord) [facility], HYSTEROSCOPY, 08/30/2024 08/30/2024 Lab Requisition [facility] [phone] Tamar Wiseman MD 07/29/2024 Orders Only [facility] Scanner 1 scan: (1-Ord) [facility], SONOHYSTEROGRAM, 07/29/2024 from Last 3 Months Immunizations [...] Asthma Maternal Grandfather Heart Disease Maternal Grandfather GA wit h stents placed Asthma Maternal Grandmother [...] CDT Tamar Wiseman MD LAB BILL ONLY [facility] [address] [place] [address], * PATH TISSUE EXAM (08/30/2024 10:45 AM CDT) Case Report Pathology Report Case: [id number] Authorizing Provider: Tamar Wiseman MD Collected: 08/30/2024 1045 Ordering Location: [facility] Received: 08/31/2024 0828 Pathologist: Alexandre Burnett MD Specimen: Endometrial Curettings 09/02/2024 12:52 PM CDT [facility] Final Diagnosis A) ENDOMETRIUM, CURETTAGE: 1. Negative for endometrial tissue in this specimen following processing 2. Recommend repeat endometrial tissue sampling, as clinically indicated 09/02/2024 12:52 PM CDT [facility] Clinical Information Persistent infertility 09/02/2024 12:52 PM CDT [facility] Gross Description A) Received in formalin, labeled with the patient's name and endometrial curettings, is a cloth stockinette with 3 possible white tissues measuring 0.2 cm in greatest aggregate dimension. The specimen is entirely submitted in 1 cassette. TRB 08/31/2024 09/02/2024 12:52 PM CDT [facility] Microscopic Description The final diagnosis is based on microscopic examination of appropriate sections of all specimens. Additional levels were examined. 09/02/2024 12:52 PM CDT [facility] Additional Information Interpreted at [facility] - [address], [place] [address] 09/02/2024 12:52 PM CDT [facility] Other (Endometrial Curettings) 08/30/2024 10:45 AM CDT 08/31/2024 8:28 AM CDT Tamar Violette Ivone MD PATHOLOGY/CYTOLO GY Performing Organization Address [facility]/ZIP Co de Phone Number [facility] [address] [place] [address] * SCAN-OPERATIVE/PROCEDURE REPORT (08/30/2024 12:00 AM CDT) Scanner OTHER * SCAN-OPERATIVE/PROCEDURE REPORT (07/29/2024 12:00 AM CDT) Scanner OTHER * ANTI HCV (04/11/2024 11:49 AM CDT) HEPATITIS C ANTIBODY Non-Reacti ve Non-React suly 04/12/2024 4:07 AM CDT [email or web address] Comment:Please note, per www [...] Kapadia MD SEND OUTS Performing Organization Address [facility] Co de Phone Number [facility] [address] [place] [address], * ANTI HIV 1/2 (04/11/2024 11:49 AM CDT) HIV-1/HIV-2 SCREEN Non-Reacti ve Non-Reacti ve 04/12/2024 2:49 AM CDT [email or web address] Comment:HIV-1 p24 and HIV-1/ HIV-2 Ab Not Detected. Blood BLOOD SPECIMEN / Unknown Venipuncture / Unknown 04/11/2024 11:49 AM CDT 04/11/2024 11:50 AM CDT Rose Kapadia MD SEND OUTS [facility] [address] [place] [address], from Last 3 Months or Most Recently Relevant to Health Maintenance Care Teams Ammonia Operator Relationship Specialty Start Date End Date Clinic, [facility] [address] [place] [address] PCP - General 07/11/24 Nia Pritchard DO [address] [place] [address] Family Practice 04/11/24
--- OUTSIDE RECORDS SUMMARY | 2024-10-23 02:41 | XMS_ITS | Clinical Summary ---
Author Organization [facility] Address [address] [place] [address] Care Team Providers Care Woodworker Helper Name Role Phone None Reported, Pcp Primary Care Provider Unavail able Source Comments Patient records contain information from all sites at [facility]. For routine questions regarding patient records, call [phone] during business hours, M-F 8:00 AM - 5:00 PM Central Time. Record requests for emergency care only can be directed to [phone] at any time.[facility] Allergies Active Allergy Reactions Criticality Noted Date Comments Adhesive Rash 07/18/2015 Skin comes off Amoxicillin-Pot Clavulanate Rash 01/04/2015 Cephalexin Anaphylaxis,Shortnes s of breath (Reselect Reaction) High 07/08/2014 See ER notes from 05-10-14, med reaction vs conversion disorder hives Clindamycin Other (see comments) 08/07/2015 Diatrizoate Meglumine Hives (Reselect Reaction),Shortness of breath (Reselect Reaction) 12/06/2008 CT contrast Gadolinium-Containing Contrast Media Anaphylaxis High 04/12/2012 Razlchi-Unpknslpa-Hjl taminophn Anaphylaxis,Rash High 09/28/2014 Omnipaque Rediflo 240 [...] (09/04/2024): Referred to as daily headaches at [place]; [facility]; mother refers to them as cluster headaches but no documentation found with that diagnosis. 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 Gender Identity Not on file Sexual Orientation [...] 167 cm (5' 5.75) 10/20/2016 8:03 AM MINE ANALYST Body Mass Index 36.11 10/20/2016 8:03 AM MINE ANALYST Plan of Treatment Health Maintenance Due Date [...] - DEVICE Final Result Performing Organization Address [facility] Co de Phone Number [facility] [address] [place] [address], [facility] [place] [address] * D-Dimer (09/04/2024 3:46 AM CDT) D-Dimer, [...] BLOOD ADD-ON Final Result Performing Organization Address City/[facility] Co de Phone Number [facility] [address] [place] [address], [facility] in [address] [address] * (ABNORMAL) CBC with Differential, Blood (09/04/2024 [...] C.N.P., D.N.P. LAB BLOOD ADD-ON Final Result [facility] [address] [place] [address], [facility] CNFL [facility] in [address] [address] * (ABNORMAL) S-TSH (Thyroid-Stimulating Hormone - Sensitive) (09/04/2024 3:46 AM CDT) TSH, Sensitive 4.3(H) 0.3 - 4.2 mIU/L 09/04/2024 4:37 AM CDT CN[facility] Blood (Blood, Venous) 09/04/2024 3:46 AM CDT 09/04/2024 4:14 AM CDT us Zoila So APRN.N.P., D.N.P. LAB BLOOD ADD-ON Final Result [facility] [address] [place] [address], [facility] CNFL [facility] in [address] [address] * Basic Metabolic Panel (09/04/2024 3:46 AM [...] C.N.P., D.N.P. LAB BLOOD ADD-ON Final Result [facility] [address] [place] [address], [facility] CN[facility] in [address] [address] * DX Chest AP or PA and [...] CDT) Ventricular Rate ECG/Min 119 BPM MUSE [place] Interval 158 ms MUSE QRSD Interval 80 ms MUSE QT Interval 324 ms MUSE QTC Interval 455 ms MUSE P [place] 42 degrees MUSE R [place] 69 degrees MUSE T Wave [place] 19 degrees MUSE 09/04/2024 3:22 AM CDT [...] ORDERA BLES Final Result Performing Organization Address City/[facility]/ZIP Co de Phone Number MUSE NA * Chlamydia / gonorrhoeae Amplified RNA (04/23/2015 8:19 AM CDT) Source (w/C. trach RNA) . [facility] Comment:URINE, FIRST VOID Chlamydia trachomatis amplified RNA Negative Negative [facility] Source (w/N. gonorr RNA) . [facility] Comment:URINE, FIRST VOID Neisseria gonorrhoeae amplified RNA Negative Negative [facility] 04/23/2015 8:19 AM CDT 04/23/2015 8:19 AM CDT us Alis Préez M.D. LAB MICROBIOLOGY - GENERAL ORD ERABLES Final Result [facility] [address] from Last 3 Months or Most Recently Relevant to Health [place] [address] Care Teams Woodworker Helper Relationship Specialty Start Date End Date None Reported, Pcp PCP - General 10/07/24
--- OUTSIDE RECORDS SUMMARY | 2024-10-23 02:41 | XMS_ITS | Referral Summary ---
Author Organization [facility] Address [address] [place] [address] Care Team Providers Care Grain Weigher Name Role Phone None Reported, Pcp Primary Care Provider Unavail able Source Comments Patient records contain information from all sites at [facility]. For routine questions regarding patient records, call [phone] during business hours, M-F 8:00 AM - 5:00 PM Central Time. Record requests for emergency care only can be directed to [phone] at any time.[facility] Encounters Date Type Department Care Team Description 09/04/2024 3:30 AM CDT - 09/04/2024 5:08 AM CDT Emergency [facility] [address] [place] [phone] Lori Marks APRN, C.N.P., D.N.P. 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 LAB BLOOD ADD-ON Final Result [facility] [address] [place] [address], [facility] CNFL [facility] in [address] [address] * (ABNORMAL) CBC with Differential, Blood (09/04/2024 [...] BLOOD ADD-ON Final Result Performing Organization Address [facility] [place] [address], [facility] [place] [place] [address] * (ABNORMAL) S-TSH (Thyroid-Stimulating Hormone - Sensitive) (09/04/2024 3:46 AM CDT) TSH, Sensitive 4.3(H) 0.3 - 4.2 mIU/L 09/04/2024 4:37 AM CDT CN[facility] Blood (Blood, Venous) 09/04/2024 3:46 AM CDT 09/04/2024 4:14 AM CDT us Lori Marks APRN, Zoila.N.P., D.N.P. LAB BLOOD ADD-ON Final Result Performing Organization Address [facility] Co de Phone Number [address] [address], [place] [address] * Basic Metabolic Panel (09/04/2024 3:46 AM [...] C.N.P., D.N.P. LAB BLOOD ADD-ON Final Result [facility] [address] [place] [address], [facility] CNFL [facility] [place] [address] * DX Chest AP or PA and [...] CDT) Ventricular Rate ECG/Min 119 BPM MUSE [place] Interval 158 ms MUSE QRSD Interval 80 ms MUSE QT Interval 324 ms MUSE QTC Interval 455 ms MUSE P [place] 42 degrees MUSE R [place] 69 degrees MUSE T Wave [place] 19 degrees MUSE 09/04/2024 3:22 AM CDT [...] AM CDT) Source (w/C. trach RNA) . [facility] Comment:URINE, FIRST VOID Chlamydia trachomatis amplified RNA Negative Negative [facility] Source (w/N. gonorr RNA) . [facility] Comment:URINE, FIRST VOID Neisseria gonorrhoeae amplified RNA Negative Negative [facility] 04/23/2015 8:19 AM CDT 04/23/2015 8:19 AM CDT Alis Pérez M.D. LAB MICROBIOLOGY - GENERAL ORD ERABLES Final Result [facility] [address] [place] [address], [facility] from Last 3 Months or Most Recently Relevant to Health Maintenance Insurance [facility] Care Teams Grain Weigher Relationship Specialty Start Date End Date None Reported, Pcp PCP - General 10/07/24
--- OUTSIDE RECORDS SUMMARY | 2024-10-23 02:41 | XMS_ITS | Continuity of Care Document ---
Author Organization [facility] Address [address] [address] [place] [address] Phone Care Team Providers Care Beach Expert Name Role Phone Arsen MURPHY, February Unavailable [...] Diagnoses Date Provider Providers Copied on Encounter [facility], [address] [address], [place], [id number], [place] tel:[phone] [facility] No Information 4 Arsen MURPHY February. [address] [facility], [place], [id number] , [place]. tel: [phone] [facility], [address] [address], [place], [id number], [place] tel:[phone] [facility] No Information 4 Arsen MURPHY February. [address] [facility], [place], [id number] , [place]. tel: [phone] Offic/outpt E&m Estab Low-mod [facility], [address] [address], [place], [id number], [place] tel:[phone] [facility] Abd Pain GeneralizedAbd Pain Generalized 3 Arsen MURPHY February. [address] [facility], [place], [id number] , [place]. tel:[phone] Referring Provider: [facility], [address] [place] [address], [place], [address]. tel:[phone] Offic/outpt E&m Estab Low-mod [facility], [address] [address], [place], [id number], [place] tel:[phone] [facility] Abdominal pain (chief complaint) Abd Pain Generalized Sep-2 6 3 Arsen MURPHY February. [address] [facility], [place], [place], [id number] , [place]. [phone] Referring Provider: Agatha George, [address] , [place], [address]. tel:[phone] [facility], [address] [address], [place], [id number], [place] tel:[phone] [facility] No Information Sep-0 3 Jorge MURPHY [facility]. [address] [facility], [place], [place], [id number] , [place]. [phone] Offic/outpt E&m Estab Low-mod [facility], [address] [address], [place], [id number], [place] tel:[phone] [facility] Abdominal pain (chief complaint) Abd Pain GeneralizedAbd Pain Generalized 3 Arsen MURPHY February. [address] [facility], [place], [place], [id number] , [place]. [phone] Referring Provider: Agatha George, [address] , [place], [address]. tel:[phone] Offic/outpt E&m Estab Mod-hi 2 [facility], [address] [address], [place], [id number], [place] tel:[phone] [facility] Abdominal pain (chief complaint) Abd Pain GeneralizedAbd Pain Generalized Apr-0 8201 3 Lucila MURPHY Nav. [address] [facility], [place], [place], [id number] , [place]. tel:[phone] Referring Provider: Agatha George, [address] , [place], [address]. tel:[phone] [facility], [address] [address], [place], [id number], [place] tel:[phone] [facility] Abd Pain Generalized Mar- 4-201 3 Lucila Chopar. [address] [facility] [address], [place], [id number] , [place]. tel: [phone] [facility], [address] [address], [place], [id number], [place] tel:[phone] [facility] Abd Pain Generalized Jan-0 3 Lucila Chopra. [address] [facility] [address], [address], [place], [id number] , [place]. tel: [phone] [facility], [address] [address], [place], [id number], [place] tel:[phone] [facility] No Information Dec- 3 Lucila Chopra. [address] [facility] [address], [address], [place], [place], [id number] , [place]. tel: [phone] [facility], [address] [address], [place], [id number], [place] tel:[phone] [facility] Abd Pain Generalized 3 Lucila Chopra. [address] [facility] [address], [address], [place], [place], [id number] , [place]. tel: [phone] Offic Cons New/estab Mod [facility], [address] [address], [place], [id number], [place] tel:[phone] [facility] Abdominal pain (chief complaint)Low er back pain (chief complaint)Vom iting, Temp Fluctuations (chief complaint) Abd Pain Generalized 3 Lucila Chopra. [address] [facility] [address], [address], [place], [id number] , [place]. tel: [phone] Family History Family Member Type Diagnosis Age [...]
--- OUTSIDE RECORDS SUMMARY | 2024-10-23 02:41 | XMS_ITS ---
Author Organization [facility] Address [address] [place] [address] Care Team Providers Care Solder Technician Name Role Phone Unavailable Unavailable Unavailable Surgery Details Not on file Complications Check Surgery Details section. Procedure Estimated Blood Loss Check Surgery Details section. Procedure Findings Check Surgery Details section. Procedure Specimens Taken Check Surgery Details section.
== END 2024-10-19 10:55 | disposition home or self-care (01) ==
LOC: NFLDREF 10-23 02:39
PROVIDERS: PCP Surgery; Referring Provider Surgery; Visit Provider Obstetrics & Gynecology
DX: N96 Recurrent pregnancy loss (principal)
CPT/HCPCS: 84702

== ENCOUNTER 2024-10-26 09:59 | Outpatient (CLI) | payer BC, SELFPAY | END 2024-10-26 10:00 | disposition home or self-care (01) | PROVIDERS: PCP Surgery; Referring Provider Surgery; Visit Provider Obstetrics & Gynecology | DX: N96 Recurrent pregnancy loss (principal) | CPT/HCPCS: 84702 ==

== ENCOUNTER 2024-11-01 08:55 | Outpatient (CLI) | payer BC, SELFPAY ==
--- NOTE | 2024-11-01 09:15 | CRLHL7_ITS ---
For Patients: As a result of the Century Cures Act, medical imaging exams and procedure reports are released immediately into your electronic medical record. You may view this report before your referring provider. If you have questions, please contact your health care provider. INDICATION: First trimester scan, establish dates. COMPARISON: None. TECHNIQUE: Real-time morel-scale imaging of the pelvis was performed. FINDINGS: Sonographic imaging demonstrates a single living intrauterine gestation. The embryo demonstrates a regular cardiac rate measuring 113 beats per minute. The embryo`s crown-rump length measurement of 0.47 cm corresponds to a gestational age of 6 weeks 1 day with a sonographic due date of 06/26/2025. There is a normal-appearing yolk sac. There are no gross abnormalities noted within the embryo at this early state of development. The gestational sac has a normal appearance. There is a 1.1 x 1.3 x 0.4 cm perigestational hemorrhage. The amount of fluid within the sac appears appropriate for gestational age. The cervix is closed. The myometrium appears normal. Corpus luteal cyst left ovary. Right ovary not visualized. There are no suspicious fluid collections noted in the cul-de-sac. IMPRESSION: Single living intrauterine 6 weeks 1 day with sonographic due date 06/26/2025. Subchorionic hemorrhage measures 1.1 x 1.3 x 0.4 cm. heart rate 113 beats per minute. Follow-up could be considered. Dictated by Alexandre Barba MD @ 11/01/2024 11:57:43 AM (Electronically Signed)
== END 2024-11-01 08:56 | disposition home or self-care (01) ==
LOC: US 08:56
PROVIDERS: PCP Surgery; Visit Provider Physician Assistant
DX: Z34.91 Encounter for supervision of normal pregnancy, unspecified, first trimester (principal); O20.9 Hemorrhage in early pregnancy, unspecified; Z3A.01 Less than 8 weeks gestation of pregnancy
CPT/HCPCS: 76817

== ENCOUNTER 2024-11-01 10:16 | Outpatient (CLI) | payer BC, SELFPAY | END 2024-11-01 10:17 | disposition home or self-care (01) | PROVIDERS: PCP Surgery; Visit Provider Midwife | DX: O20.9 Hemorrhage in early pregnancy, unspecified (principal); Z3A.01 Less than 8 weeks gestation of pregnancy | CPT/HCPCS: 83021; 84443; 86592; 86703; 86704; 86706; 86762; 86787; 86803; 86850; 86900; 86901; 87086; 87340; 87491; 87591 ==

== ENCOUNTER 2024-11-24 13:44 | Outpatient (CLI) | payer BC, SELFPAY | END 2024-11-24 13:45 | disposition home or self-care (01) | LOC: NFLDREF 13:44 | PROVIDERS: PCP Surgery; Visit Provider Obstetrics & Gynecology | DX: Z34.91 Encounter for supervision of normal pregnancy, unspecified, first trimester (principal) | CPT/HCPCS: 87491; 87591 ==

== ENCOUNTER 2024-12-01 16:51 | Emergency (ER) | payer BC, SELFPAY ==
--- OUTSIDE RECORDS SUMMARY | 2024-12-01 16:53 | XMS_ITS | Referral Summary ---
Author Organization [facility] Address [address] [place] [address] Care Team Providers Care Electrician Wiring Name Role Phone None Reported, Pcp Primary Care Provider Unavail able Source Comments Patient records contain information from all sites at [facility]. For routine questions regarding patient records, call [phone] during business hours, M-F 8:00 AM - 5:00 PM Central Time. Record requests for emergency care only can be directed to [phone] at any time.[facility] Encounters Date Type Department Care Team Description 09/04/2024 3:30 AM CDT - 09/04/2024 5:08 AM CDT Emergency [facility] [address] [place] [phone] Lori Marks APRN, C.N.P., D.N.P. 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 LAB BLOOD ADD-ON Final Result [facility] [address] [place] [address], [facility] CN[facility] in [address] [address] * (ABNORMAL) CBC with Differential, Blood (09/04/2024 [...] BLOOD ADD-ON Final Result Performing Organization Address [facility] [place] [address], [place] [address] * (ABNORMAL) S-TSH (Thyroid-Stimulating Hormone - Sensitive) (09/04/2024 3:46 AM CDT) TSH, Sensitive 4.3(H) 0.3 - 4.2 mIU/L 09/04/2024 4:37 AM CDT CNFL Blood (Blood, Venous) 09/04/2024 3:46 AM CDT 09/04/2024 4:14 AM CDT us Lori Marks APRN, Zoila.N.P., D.N.P. LAB BLOOD ADD-ON Final Result Performing Organization Address [facility] Co de Phone Number [address] [address], [place] [address] * Basic Metabolic Panel (09/04/2024 3:46 AM [...] C.N.P., D.N.P. LAB BLOOD ADD-ON Final Result [facility] [address] [place] [address], [facility] [place] [address] * DX Chest AP or PA and [...] MUSE QTC Interval 455 ms MUSE P [place] 42 degrees MUSE R [place] 69 degrees MUSE T Wave [place] 19 degrees MUSE 09/04/2024 3:22 AM CDT [...] AM CDT) Source (w/C. trach RNA) . [facility] Comment:URINE, FIRST VOID Chlamydia trachomatis amplified RNA Negative Negative [facility] Source (w/N. gonorr RNA) . [facility] Comment:URINE, FIRST VOID Neisseria gonorrhoeae amplified RNA Negative Negative [facility] 04/23/2015 8:19 AM CDT 04/23/2015 8:19 AM CDT Alis Pérez M.D. LAB MICROBIOLOGY - GENERAL ORD ERABLES Final Result [facility] [address] [place] [address], [facility] from Last 3 Months or Most Recently Relevant to Health Maintenance Insurance [facility] Care Teams Electrician Wiring Relationship Specialty Start Date End Date None Reported, Pcp PCP - General 10/07/24
--- OUTSIDE RECORDS SUMMARY | 2024-12-01 16:53 | XMS_ITS | Clinical Summary ---
Author Organization [facility] Address [address] [place] [address] Care Team Providers Care Butadiene Converter Operator Name Role Phone None Reported, Pcp Primary Care Provider Unavail able Source Comments Patient records contain information from all sites at [facility]. For routine questions regarding patient records, call [phone] during business hours, M-F 8:00 AM - 5:00 PM Central Time. Record requests for emergency care only can be directed to [phone] at any time.[facility] Allergies Active Allergy Reactions Criticality Noted Date Comments Adhesive Rash 07/18/2015 Skin comes off Amoxicillin-Pot Clavulanate Rash 01/04/2015 Cephalexin Anaphylaxis,Shortnes s of breath (Reselect Reaction) High 07/08/2014 See ER notes from 05-10-14, med reaction vs conversion disorder hives Clindamycin Other (see comments) 08/07/2015 Diatrizoate Meglumine Hives (Reselect Reaction),Shortness of breath (Reselect Reaction) 12/06/2008 CT contrast Gadolinium-Containing Contrast Media Anaphylaxis High 04/12/2012 Gmmuzuw-Onkjxizdb-Ywd taminophn Anaphylaxis,Rash High 09/28/2014 Omnipaque Rediflo 240 [...] (09/04/2024): Referred to as daily headaches at [place]; [facility]; mother refers to them as cluster headaches but no documentation found with that diagnosis. 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 Shortness Of [...] on file Legal Sex Female 10:55 AM APPLICATION TRAINER Gender Identity Not on file Sexual Orientation [...] 167 cm (5' 5.75) 10/20/2016 8:03 AM APPLICATION TRAINER Body Mass Index 36.11 10/20/2016 8:03 AM APPLICATION TRAINER Plan of Treatment Health Maintenance Due Date Last Done Comments Cervical/Vaginal Cancer Screening 1998 HIV Screening 1998 Hepatitis C Screening 1998 HPV Vaccines (1 - 3-dose series) 2013 Pneumococcal vaccine (0-49 y ears) (1 of 2 - PCV) 2017 DTaP,Tdap,and Td Vaccines (7 - Td or [...] - DEVICE Final Result Performing Organization Address [facility] Co de Phone Number [facility] [address] [place] [address], [place] [address] * D-Dimer (09/04/2024 3:46 AM CDT) D-Dimer, [...] BLOOD ADD-ON Final Result Performing Organization Address City/[facility] Co de Phone Number [facility] [address] [place] [address], [facility] in [address] [address] * (ABNORMAL) CBC with Differential, Blood (09/04/2024 [...] C.N.P., D.N.P. LAB BLOOD ADD-ON Final Result [facility] [address] [place] [address], [facility] CNFL [facility] in [address] [address] * (ABNORMAL) S-TSH (Thyroid-Stimulating Hormone - Sensitive) (09/04/2024 3:46 AM CDT) TSH, Sensitive 4.3(H) 0.3 - 4.2 mIU/L 09/04/2024 4:37 AM CDT CNFL Blood (Blood, Venous) 09/04/2024 3:46 AM CDT 09/04/2024 4:14 AM CDT us Zoila So APRN.N.P., D.N.P. LAB BLOOD ADD-ON Final Result [facility] [address] [place] [address], [facility] CN[facility] in [address] [address] * Basic Metabolic Panel (09/04/2024 3:46 AM [...] C.N.P., D.N.P. LAB BLOOD ADD-ON Final Result [facility] [address] [place] [address], [facility] CN[facility] in [address] [address] * DX Chest AP or PA and [...] CDT) Ventricular Rate ECG/Min 119 BPM MUSE RI Interval 158 ms MUSE QRSD Interval 80 ms MUSE QT Interval 324 ms MUSE QTC Interval 455 ms MUSE P [place] 42 degrees MUSE R [place] 69 degrees MUSE T Wave [place] 19 degrees MUSE 09/04/2024 3:22 AM CDT [...] ORDERA BLES Final Result Performing Organization Address City/[facility]/ZIP Co de Phone Number MUSE NA * Chlamydia / gonorrhoeae Amplified RNA (04/23/2015 8:19 AM CDT) Source (w/C. trach RNA) . [facility] Comment:URINE, FIRST VOID Chlamydia trachomatis amplified RNA Negative Negative [facility] Source (w/N. gonorr RNA) . [facility] Comment:URINE, FIRST VOID Neisseria gonorrhoeae amplified RNA Negative Negative [facility] 04/23/2015 8:19 AM CDT 04/23/2015 8:19 AM CDT us Alis Pérez M.D. LAB MICROBIOLOGY - GENERAL ORD ERABLES Final Result [facility] [address] from Last 3 Months or Most Recently Relevant to Health Maintenance Insurance [facility] [place] [address] Care Teams Butadiene Converter Operator Relationship Specialty Start Date End Date None Reported, Pcp PCP - General 10/07/24
--- OUTSIDE RECORDS SUMMARY | 2024-12-01 16:53 | XMS_ITS | Clinical Summary ---
Author Organization [facility] Address [place], [place] [address] Care Team Providers Care Carpet Installer Name Role Phone Nia Pritchard DO Unavailable [phone] [facility], [facility] Primary Care Pr ovider Allergies Active Allergy Reactions Criticality Noted Date Comments Amoxicillin-Pot Clavulanate Rash 01/04/2015 Clindamycin Paresthesias 08/07/2015 Diatrizoate Allergen Hives,Shortness Of Breath 12/06/2008 CT contrast Sumatriptan Hives,Shortness Of Breath 09/21/2013 Also had tingling in arms and head. Iodine Hives 07/18/2015 Cephalexin Shortness Of Breath 07/08/2014 See ER notes from 05-10-14, med reaction vs conversion disorder Nvaanww-Rcukrzauz-Obf taminophn Rash 09/28/2014 Adhesive Rash 07/18/2015 Skin comes off Medications albuterol HFA (PRO-AIR; VENTOLIN; PROVENTIL) 90 mcg/actuation inhalerIndications: Acute cough Inhale 2 Puffs by mouth every 4 hours if needed (cough). 1 Each 2 Active ondansetron (ZOFRAN ODT) 4 mg disintegrating tabletIndications:N ausea and vomiting, unspecified vomiting type Place 1 Tablet (4 mg) on the tongue every 8 hours if needed for Nausea/Vomi ting. 30 Tablet 4 Active 73-pmyg-kryulo 6-dha 30 mg iron-1mg -200 mg cap Take by mouth. 4 Active Active Problems Problem Noted Date Diagnosed Date 04/11/2024 Overview (04/12/2024): Primary OB patient of Preferred name: Xiang Language/cultural preferences: Mosotho OB HISTORY / PERTINENT MEDICAL HISTORY: Dating [...] (04/12/2015): Referred to as daily headaches at [place]; possible [facility] [...] Encounters Date Type Department Care Team Description 11/01/2024 Orders Only [facility] Scanner 1 scan: (1-Ord) [facility] OB TRANSVAGINAL, 11/01/2024 from Last 3 Months Immunizations Name Administration [...] Asthma Maternal Grandfather Heart Disease Maternal Grandfather ND wit h stents placed Asthma Maternal Grandmother [...] Housing in the Last Year 1 08/21/2023 Interpersonal Safety Answer Date Record ed Are you being hit, kicked, p ushed or yelled at (see row info)? No 05/19/2024 Interpersonal Safety Abuse 12 - 18 Not on file 05/19/2024 Interpersonal Safety Ambulatory Vulnerability No t on file 05/19/2024 Comments No Sex and Gender Information Value Date Recorded Sex Assigned at Not on file Legal Sex Female 5:46 AM BOX TURNER Gender Identity Not on file Sexual Orientation [...] age 9-26 (1 - 3-dose series) 2013 Pneumococcal series for age 6-49 (1 of 2 - PCV) 2017 Depression screening for age 12+ 11/05/2018 11/05/20 17, 07/02/2016 Pap test for age 21-65 2019 Tetanus booster 08/02/2020 08/02/2010 COVID-19 vaccine series ( season) 2024 Influenza for age 9-49 07/31/2024 7, 10/12/2015, 10/31/2011, Additional history exists BMI (ht and wt on same day) for age 18+ 04/11/2025 04/11/2024, 10/28/2021, 04/30/2019, Additional history exists Tdap Completed 08/02/2010 HIV for age 15-65 Completed 04/11/2024, 08/11/2023 Hepatitis C screening for ag e 18-79 Completed 04/11/2024 Procedures Procedure Name Priority Date/Time Associated Diagnosis Comments SCAN-ULTRASOUND REPORT 11/01/2024 12:00 AM BOX TURNER ANTI HIV 1/2 Routine 04/11/2024 11:49 AM CDT Encounter for supervision of other normal in first trimester ANTI HCV Routine 04/11/2024 11:49 AM CDT Encounter for supervision of other normal in first trimester from Last 3 Months or Most Recently Relevant to Health Maintenance Results * SCAN-ULTRASOUND REPORT (11/01/2024 12:00 AM BOX TURNER) Anatomical Region Laterality Modality Other us Scanner OTHER Final Result * ANTI HCV (04/11/2024 11:49 AM CDT) HEPATITIS C ANTIBODY Non-Reacti ve Non-React suly 04/12/2024 4:07 AM CDT [facility] Comment:Please note, per www .CDC.gov: [...] AM CDT Rose Kapadia MD SEND OUTS Final Resul t Performing Organization Address [facility] Co de Phone Number [facility] [address] [place] [address], * ANTI HIV 1/2 (04/11/2024 11:49 AM CDT) HIV-1/HIV-2 SCREEN Non-Reacti ve Non-Reacti ve 04/12/2024 2:49 AM CDT [facility] Comment:HIV-1 p24 and HIV-1/ HIV-2 Ab Not Detected. Blood BLOOD SPECIMEN / Unknown Venipuncture / Unknown 04/11/2024 11:49 AM CDT 04/11/2024 11:50 AM CDT us Rose Kapadia MD SEND OUTS Final Resul t Performing Organization Address [facility] Co de Phone Number [facility] [address] [place] [address], from Last 3 Months or Most Recently Relevant to Health Maintenance Insurance [facility] Care Teams Carpet Installer Relationship Specialty Start Date End Date Clinic, [facility] [address] [place] [address] PCP - General 07/11/24 Nia Pritchard DO [address] [place] [address] Family Practice 04/11/24
--- OUTSIDE RECORDS SUMMARY | 2024-12-01 16:53 | XMS_ITS ---
Author Organization [facility] Address [address] [place] [address] Care Team Providers Care Acidity Tester Name Role Phone Unavailable Unavailable Unavailable Surgery Details Not on file Complications Check Surgery Details section. Procedure Estimated Blood Loss Check Surgery Details section. Procedure Findings Check Surgery Details section. Procedure Specimens Taken Check Surgery Details section.
[2024-12-01 17:01] VITALS: BP 145/83; PULSE 112; RESP 18; TEMP 36.3; O2SAT 100; BMI 35.5
--- NOTE | 2024-12-01 18:14 | ED_ITS ---
HPI - General Adult General Chief complaint: Weakness Stated complaint: 11 wks preg, heart palp, lightheaded Time Seen by Provider: 12/01/24 17:16 History of Present Illness HPI narrative: This 24-year-old female comes in reporting some palpitations and occasions of lightheadedness. She is 11 weeks and has had 5 miscarriages and no that is gone to term. She is on a thyroid medicine. Her significant other states that the previous miscarriages were related to her thyroid. She has been on the same medication for at least many months and does not report any recent dosage change. She denies having any chest pain or shortness of breath. She does not have any limb pain or swelling. She does not have any history of thrombosis. Her vital signs are all normal except her heart rate is around 105- 110 beats per minute at rest. Her significant other states that it typically is a little elevated any way. Related Data Home Medications ?Medication ?Instructions ?Recorded ?Confirmed docosahexaenoic acid 200 mg mg PO 11/01/24 11/24/24 capsule ( DHA) pyridoxine (vitamin B6) 10 mg 10 mg PO .PRN 11/01/24 11/24/24 tablet Previous Rx's ?Medication ?Instructions ?Recorded levothyroxine 100 mcg tablet 100 mcg PO QDAY #90 tabs 09/26/24 ondansetron 4 mg disintegrating 4 mg PO Q8H PRN nausea and 11/01/24 tablet vomiting #30 tabs promethazine 12.5 mg tablet 12.5 mg PO Q6H PRN nausea and 11/15/24 vomiting #30 tabs Allergies Allergy/AdvReac Type Severity Reaction Status Date / Time Iodinated Contrast Media Allergy Severe Hives & Verified 11/24/24 13:12 Respiratory Distress clindamycin Allergy Intermediate Shortness Verified 11/24/24 13:12 of Breath acetaminophen (From Midrin) Allergy Unknown Verified 11/24/24 13:12 amoxicillin (From Augmentin) Allergy Unknown Verified 11/24/24 13:12 cephalexin (From Keflex) Allergy Unknown Verified 11/24/24 13:12 clavulanic acid (From Allergy Unknown Verified 11/24/24 13:12 Augmentin) dichloralphenazone (From Allergy Unknown Verified 11/24/24 13:12 Midrin) isometheptene (From Midrin) Allergy Unknown Verified 11/24/24 13:12 sumatriptan (From Imitrex) Allergy Unknown Verified 11/24/24 13:12 adhesive tape AdvReac Unknown Unknown Verified 11/24/24 13:12 Review of Systems Status of ROS: Reports: 10 or more systems reviewed and unremarkable except as noted in History and below Narrative: Constitutional: No fevers, no weight gain or loss. Eyes: No discharge. No vision changes. HENT: No congestion, no sore throat, no ear pain. Cardiovascular: No chest pain. Palpitations as described above. Respiratory: No shortness of breath, no wheezes, no cough. Gastrointestinal: No abdominal pain, no vomiting, no diarrhea. Genitourinary: No dysuria, no hematuria. Musculoskeletal: Normal range of motion. Skin: No rashes, no pruritis. Neurological: No dizziness, weakness, sensory change, speech change. Endo/Heme/Allergies: No bruising or bleeding. No polydipsia. Pysch: no suicidality, no anxiety, no insomnia. All other systems reviewed and are negative. 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 - Other congenital malformations of uterus (ICD-10) Surgical History (Updated 07/11/24 @ 16:07 by Lori Baker) History of tonsillectomy (2015) ?Z90.89 - Acquired absence of other organs (ICD-10) History of salpingostomy (02/06/16) ?Z98.890 - Other specified postprocedural states (ICD-10) Social History (Updated 11/01/24 @ 09:58 by Salud Scott ~ [facility], [facility]) What is your current living situation?: I presently have a place to live Problems where you live: no known problems In the past 12 months, utilities in danger of being shut off: no In past 12 months, lack of transportation kept you from medical appts, meetings, work, or getting things needed for daily living: no In the past 12 mos, have been you worried that your food would run out before you had money to buy more?: never true In the past 12 mos, the food you bought just didn't last and you didn't have money to buy more?: never true Smoking Status: Never smoker Do you use any of these nicotine containing products: None Second hand tobacco smoke exposure: No How often do you have a drink containing alcohol: never How often do you have six or more drinks on one occasion: Never AUDIT-C Alcohol total score: 0 Non-prescribed substance use: denies use Caffeine: Yes Within the last year, have you been humiliated or emotionally abused in other w ays by your partner or ex-partner: no Within the last year, have you been afraid of your partner or ex-partner: no Within the last year, have you been raped or forced to have any kind of sexual activity by your partner or ex-partner: no Within the last year, have you been kicked, hit, slapped, or otherwise physically hurt by your partner or ex-partner: no HARK total score: 0 service: No Exam Narrative: Exam Narrative: Constitutional: Well-developed, well-nourished, no acute distress. HEENT: Normocephalic, atraumatic. Neck: Normal range of motion. Nontender. Supple. Heart: Regular. No murmurs. Tachycardia, rate 105-110 beats per minute. Intact distal pulses. Lungs: Clear to auscultation. No chest discomfort. No wheezes, rhonchi, or rales. Abdomen: Normal bowel sounds. Nontender. No rebound tenderness. Genitalia: Deferred. Back: No midline tenderness. Normal range of motion. Extremities: Normal range of motion. No injury. Skin: Intact. No rash. Warm. No erythema or pallor. Neurologic: No altered sensation. No weakness. Alert and oriented. Psychiatric: No suicidality. No anxiety or depression. No insomnia. Nursing notes and vitals signs are reviewed. Const: Vital Signs, click to edit/add: Vital Signs - 24 hr 12/01/24 17:01 Temperature 97.4 F L Pulse Rate [Pulse Oximeter] 112 H Respiratory Rate 18 Blood Pressure [Ri ght Upper Arm] 145/83 H Pulse Oximetry 100 Oxygen Delivery Me thod Room Air Course Vital Signs Vital signs: Initial Vital Signs Temperature 97.4 F L 12/01/24 17:01 Temperature Source Temporal Artery Scan 12/01/24 17:01 Pulse Rate 112 H 12/01/24 17:01 Respiratory Rate 18 12/01/24 17:01 Blood Pressure 145/83 H 12/01/24 17:01 Blood Pressure Mean 103 12/01/24 17:01 Blood Pressure Position Sitting 12/01/24 17:01 Pulse Oximetry 100 12/01/24 17:01 Oxygen Delivery Method Room Air 12/01/24 17:01 Vital Signs Temperature 97.4 F L 12/01/24 17:01 Pulse Rate 112 H 12/01/24 17:01 Respiratory Rate 18 12/01/24 17:01 Blood Pressure 145/83 H 12/01/24 17:01 Pulse Oximetry 100 12/01/24 17:01 Oxygen Delivery Method Room Air 12/01/24 17:01 Temperature 97.4 F L 12/01/24 17:01 Pulse Rate 112 H 12/01/24 17:01 Respiratory Rate 18 12/01/24 17:01 Blood Pressure 145/83 H 12/01/24 17:01 Pulse Oximetry 100 12/01/24 17:01 Oxygen Delivery Method Room Air 12/01/24 17:01 Medical Decision Making MDM Narrative Medical decision making narrative: This 24-year-old female is 11 weeks . She was concerned about palpitations. EKG is obtained and shows normal sinus rhythm with just a bit of tachycardia. She states that her heart rate is typically around 90 or 100 beats per minute. She was observed on the monitor and there is occasional PVCs that do correlate with her feeling of palpitations. She is not showing any sign of other abnormality. I did obtain blood tests including thyroid level as she is taking a thyroid medicine. These all returned with normal results. The patient's heart rate is hovering around 100 beats per minute when I visited her again. She is okay to be discharged home and does have follow-up plans with her OB physician. I did describe signs and symptoms that would indicate a need for return and re-evaluation. Lab Data Labs: Lab Results 12/01/24 12/01/24 12/01/24 Range/Units 18:29 18:29 18:35 WBC 8.84 (4.50-11.00) K/uL RBC 4.82 (4.00-5.20) m/uL Hgb 12.9 (12.0-16.0) gm/dL Hct 39.8 (33.0-51.0) % MCV 83 (80-100) fL MCH 27 (26-34) pg MCHC 32 (32-36) gm/dL RDW Coeff of Adry 12.9 (11.5-15.5) % Plt Count 387 (140-440) K/uL Neut % (Auto) 77.6 H (42.0-72.0) % Lymph % (Auto) 14.1 L (20-44) % Sunflower % (Auto) 7.1 (0.0-11.0) % Eos % (Auto) 0.8 (0.0-7.0) % Baso % (Auto) 0.2 (0.0-3.0) % Neut # (Auto) 6.90 (1.7-7.0) K/uL Lymph # (Auto) 1.20 (0.90-2.90) K/uL Sunflower # (Auto) 0.60 (0.00-0.90) K/UL Eos # (Auto) 0.07 (0.00-0.50) K/uL Baso # (Auto) 0.02 (0.00-0.30) K/uL Abs Immat Gran (auto) 0.02 (0.00-0.30) K/uL Imm/Tot Granulo (auto) 0.2 % Sodium 136 (135-149) mmol/L Potassium 4.0 (3.6-5.1) mmol/L Chloride 105 (96-114) mmol/L Carbon Dioxide 25 (20-32) mmol/L Anion Gap 6 L (7-15) mEq/L BUN 8 (5-24) mg/dL Creatinine 0.6 (0.5-1.5) mg/dL Estimated Creat Clear 133.01 Estimated GFR 127 ml/min Glucose 91 (60-115) mg/dL Calcium 9.5 (8.4-10.6) mg/dL TSH 1.650 (0.270-4.20) uIU/mL Free T4 1.18 Cancelled (0.70-1.85) ng/dL Urine Color Yellow (Yellow) Urine Appearance Slightly Cloudy A (Clear) Urine pH 6.0 (5.0-8.5) Ur Specific [place] 1.010 (1.000-1.030) Urine Protein Negative (Negative) Urine Glucose (UA) Negative (Negative) Urine Ketones Negative (Negative) Urine Blood Negative (Negative) Urine Nitrite Negative (Negative) Urine Bilirubin Negative (Negative) Urine Urobilinogen 0.2 (0.2-1.0) Ur Leukocyte Esterase Negative (Negative) Urine RBC 0-2 (0-2) Urine WBC 0-2 (0-5) Ur Squamous Epith Cells Few (None-Few) Urine Bacteria Moderate A (None) ECG Data Attestation: I personally reviewed and interpreted this ECG as follows: Interpretation: Sinus tachycardia, rate 109 beats per minute. There are no specific ST or T- wave abnormalities. Discharge Plan Discharge Clinical Impression: Palpitations Patient Disposition: Home, Self-Care Condition: Stable Additional Instructions: Continue current plans. Follow up with primary physician as scheduled or sooner if needed. Return if worsening. Prescriptions: No Action levothyroxine 100 mcg tablet 100 mcg PO QDAY Qty: 90 1RF DHA 200 mg capsule PO pyridoxine (vitamin B6) 10 mg tablet 10 mg PO .PRN ondansetron 4 mg tablet,disintegrating 4 mg PO Q8H PRN (Reason: nausea and vomiting) Qty: 30 0RF promethazine 12.5 mg tablet 12.5 mg PO Q6H PRN (Reason: nausea and vomiting) Qty: 30 0RF Follow Up/Referrals: Rodger Garrison MD [Primary Care Provider] - Stand Alone Forms: [facility] Info Instructions
[2024-12-01 18:35] LABS: Basophils Absolute Auto 0.02 K/uL (0.00-0.30); Basophils Percent Auto 0.2 % (0.0-3.0); Eosinophils Absolute Auto 0.07 K/uL (0.00-0.50); Eosinophils Percent Auto 0.8 % (0.0-7.0); Hematocrit 39.8 % (33.0-51.0); Hemoglobin* 12.9 gm/dL (12.0-16.0); Immature Granulocytes Abs Auto 0.02 K/uL (0.00-0.30); Immature Granulocytes Pct Auto 0.2 %; Lymphocytes Percent Auto 14.1 % (20-44); Mean Corpuscular HGB Conc 32 gm/dL (32-36); Mean Corpuscular Hemoglobin 27 pg (26-34); Mean Corpuscular Volume 83 fL (80-100); Monocytes Percent Auto 7.1 % (0.0-11.0); Neutrophils Percent Auto 77.6 % (42.0-72.0); Platelet Count* 387 K/uL (140-440); RDW Coefficient of Variation % 12.9 % (11.5-15.5); Red Blood Count 4.82 m/uL (4.00-5.20); White Blood Count* 8.84 K/uL (4.50-11.00)
[2024-12-01 18:37] LABS: Slide Review Reflex No
[2024-12-01 18:42] LABS: Appearance Urine Slightly Cloudy (Clear); Bilirubin Urine Negative (Negative); Blood Urine Negative (Negative); Color Urine Yellow (Yellow); Glucose Urine Negative (Negative); Ketones Urine Negative (Negative); Leukocyte Esterase Urine Negative (Negative); Nitrite Urine Negative (Negative); Protein Urine Negative (Negative); Urobilinogen Urine 0.2 (0.2-1.0)
[2024-12-01 18:48] LABS: Chloride* 105 mmol/L (96-114); Sodium* 136 mmol/L (135-149)
[2024-12-01 18:49] LABS: Bacteria Urine Moderate; RBC Urine 0-2 (0-2); Squamous Epithelial Cell Urine Few (None-Few); WBC Urine 0-2 (0-5)
--- OUTSIDE RECORDS SUMMARY | 2024-12-01 18:50 | XMS_ITS | Clinical Summary ---
Author Organization [facility] Address [address] [place] [address] Care Team Providers Care Instrument Person Name Role Phone None Reported, Pcp Primary Care Provider Unavail able Source Comments Patient records contain information from all sites at [facility]. For routine questions regarding patient records, call [phone] during business hours, M-F 8:00 AM - 5:00 PM Central Time. Record requests for emergency care only can be directed to [phone] at any time.[facility] Allergies Active Allergy Reactions Criticality Noted Date Comments Adhesive Rash 07/18/2015 Skin comes off Amoxicillin-Pot Clavulanate Rash 01/04/2015 Cephalexin Anaphylaxis,Shortnes s of breath (Reselect Reaction) High 07/08/2014 See ER notes from 05-10-14, med reaction vs conversion disorder hives Clindamycin Other (see comments) 08/07/2015 Diatrizoate Meglumine Hives (Reselect Reaction),Shortness of breath (Reselect Reaction) 12/06/2008 CT contrast Gadolinium-Containing Contrast Media Anaphylaxis High 04/12/2012 Rqrjlkw-Olwmckmxy-Rqg taminophn Anaphylaxis,Rash High 09/28/2014 Omnipaque Rediflo 240 [...] (09/04/2024): Referred to as daily headaches at [place]; [facility]; mother refers to them as cluster headaches but no documentation found with that diagnosis. 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 Shortness Of [...] on file Legal Sex Female 10:55 AM GMAT INSTRUCTOR Gender Identity Not on file Sexual [...] 167 cm (5' 5.75) 10/20/2016 8:03 AM GMAT INSTRUCTOR Body Mass Index 36.11 10/20/2016 8:03 AM GMAT INSTRUCTOR Plan of Treatment Health Maintenance Due Date [...] - DEVICE Final Result Performing Organization Address [facility] Co de Phone Number [facility] [address] [place] [phone], [place] [address] * D-Dimer (09/04/2024 3:46 AM CDT) D-Dimer, [...] BLOOD ADD-ON Final Result Performing Organization Address City/[facility] Co de Phone Number [facility] [address] [place] [phone], [facility] in [address] [address] * (ABNORMAL) CBC with Differential, Blood (09/04/2024 [...] C.N.P., D.N.P. LAB BLOOD ADD-ON Final Result [facility] [address] [place] [address], [facility] CNFL [facility] in [address] [address] * (ABNORMAL) S-TSH (Thyroid-Stimulating Hormone - Sensitive) (09/04/2024 3:46 AM CDT) TSH, Sensitive 4.3(H) 0.3 - 4.2 mIU/L 09/04/2024 4:37 AM CDT CNFL Blood (Blood, Venous) 09/04/2024 3:46 AM CDT 09/04/2024 4:14 AM CDT us Zoila So APRN.N.P., D.N.P. LAB BLOOD ADD-ON Final Result [facility] [address] [place] [address], [facility] CNFL [facility] in [address] [address] * Basic Metabolic Panel (09/04/2024 3:46 AM [...] C.N.P., D.N.P. LAB BLOOD ADD-ON Final Result [facility] [address] [place] [address], [facility] CNFL [facility] in [address] [address] * DX Chest AP or PA and [...] MUSE QTC Interval 455 ms MUSE P [place] 42 degrees MUSE R [place] 69 degrees MUSE T Wave [place] 19 degrees MUSE 09/04/2024 3:22 AM CDT [...] ORDERA BLES Final Result Performing Organization Address [facility]/ZIP Co de Phone Number MUSE NA * Chlamydia / gonorrhoeae Amplified RNA (04/23/2015 8:19 AM CDT) Source (w/C. trach RNA) . [facility] Comment:URINE, [place] Chlamydia trachomatis amplified RNA Negative Negative [facility] Source (w/N. gonorr RNA) . [facility] Comment:URINE, [place] Neisseria gonorrhoeae amplified RNA Negative Negative [facility] 04/23/2015 8:19 AM CDT 04/23/2015 8:19 AM CDT us Alis Pérez M.D. LAB MICROBIOLOGY - GENERAL ORD ERABLES Final Result [facility] [address] from Last 3 Months or Most Recently Relevant to Health Maintenance Insurance [facility] Care Teams Instrument Person Relationship Specialty Start Date End Date None Reported, Pcp PCP - General 10/07/24
--- OUTSIDE RECORDS SUMMARY | 2024-12-01 18:50 | XMS_ITS ---
Author Organization [facility] Address [address] [place] [address] Care Team Providers Care Penology Teacher Name Role Phone Unavailable Unavailable Unavailable Surgery Details Not on file Complications Check Surgery Details section. Procedure Estimated Blood Loss Check Surgery Details section. Procedure Findings Check Surgery Details section. Procedure Specimens Taken Check Surgery Details section.
--- OUTSIDE RECORDS SUMMARY | 2024-12-01 18:50 | XMS_ITS | Referral Summary ---
Author Organization [facility] Address [address] [place] [address] Care Team Providers Care Test Clerk Name Role Phone None Reported, Pcp Primary Care Provider Unavail able Source Comments Patient records contain information from all sites at [facility]. For routine questions regarding patient records, call [phone] during business hours, M-F 8:00 AM - 5:00 PM Central Time. Record requests for emergency care only can be directed to [phone] at any time.[facility] Encounters Date Type Department Care Team Description 09/04/2024 3:30 AM CDT - 09/04/2024 5:08 AM CDT Emergency [facility] [address] [place] [phone] Lori Marks APRN, C.N.P., D.N.P. 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 LAB BLOOD ADD-ON Final Result [facility] [address] [place] [address], [facility] CNFL [facility] in [address] [address] * (ABNORMAL) CBC with Differential, Blood (09/04/2024 [...] BLOOD ADD-ON Final Result Performing Organization Address [facility] [place] [address], [facility] [place] [address] * (ABNORMAL) S-TSH (Thyroid-Stimulating Hormone - Sensitive) (09/04/2024 3:46 AM CDT) TSH, Sensitive 4.3(H) 0.3 - 4.2 mIU/L 09/04/2024 4:37 AM CDT CNFL Blood (Blood, Venous) 09/04/2024 3:46 AM CDT 09/04/2024 4:14 AM CDT us Lori Marks APRN, Zoila.N.P., D.N.P. LAB BLOOD ADD-ON Final Result Performing Organization Address [facility] Co de Phone Number [address] [address], [place] [address] * Basic Metabolic Panel (09/04/2024 3:46 AM [...] C.N.P., D.N.P. LAB BLOOD ADD-ON Final Result [facility] [address] [place] [address], [facility] CNFL [facility] [place] [address] * DX Chest AP or PA and [...] CDT) Ventricular Rate ECG/Min 119 BPM MUSE [place] Interval 158 ms MUSE QRSD Interval 80 ms MUSE QT Interval 324 ms MUSE QTC Interval 455 ms MUSE P [place] 42 degrees MUSE R [place] 69 degrees MUSE T Wave [place] 19 degrees MUSE 09/04/2024 3:22 AM CDT [...] AM CDT) Source (w/C. trach RNA) . [facility] Comment:URINE, [place] Chlamydia trachomatis amplified RNA Negative Negative [facility] Source (w/N. gonorr RNA) . [facility] Comment:URINE, [place] Neisseria gonorrhoeae amplified RNA Negative Negative [facility] 04/23/2015 8:19 AM CDT 04/23/2015 8:19 AM CDT Alis Pérez M.D. LAB MICROBIOLOGY - GENERAL ORD ERABLES Final Result [facility] [address] [place] [address], [facility] from Last 3 Months or Most Recently Relevant to Health Maintenance Insurance [facility] Care Teams Test Clerk Relationship Specialty Start Date End Date None Reported, Pcp PCP - General 10/07/24
--- OUTSIDE RECORDS SUMMARY | 2024-12-01 18:50 | XMS_ITS | Clinical Summary ---
Author Organization [facility] Address [place], [place] [address] Care Team Providers Care Corporate Legal Assistant Name Role Phone Nia Pritchard DO Unavailable [phone] [facility], [facility] Primary Care Pr ovider Allergies Active Allergy Reactions Criticality Noted Date Comments Amoxicillin-Pot Clavulanate Rash 01/04/2015 Clindamycin Paresthesias 08/07/2015 Diatrizoate Allergen Hives,Shortness Of Breath 12/06/2008 CT contrast Sumatriptan Hives,Shortness Of Breath 09/21/2013 Also had tingling in arms and head. Iodine Hives 07/18/2015 Cephalexin Shortness Of Breath 07/08/2014 See ER notes from 05-10-14, med reaction vs conversion disorder Xbfacsz-Vxzbehywa-Bnv taminophn Rash 09/28/2014 Adhesive Rash 07/18/2015 Skin [...] for Nausea/Vomi ting. 30 Tablet 4 Active 66-okon-vdiqqv 6-dha 30 mg iron-1mg -200 mg cap Take by mouth. 4 Active Active Problems Problem Noted Date Diagnosed Date 04/11/2024 Overview (04/12/2024): Primary OB patient of Preferred name: Xiang Language/cultural preferences: Norwegian OB HISTORY / PERTINENT MEDICAL HISTORY: Dating [...] (04/12/2015): Referred to as daily headaches at [place]; possible [facility] [...] Department Care Team Description 11/01/2024 Orders Only [facility] Scanner 1 scan: (1-Ord) 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 Gender Identity Not on file Sexual Orientation [...] Diagnosis Comments SCAN-ULTRASOUND REPORT 11/01/2024 12:00 AM COLLEGE ADMINISTRATOR ANTI HIV 1/2 Routine 04/11/2024 11:49 AM CDT Encounter for supervision of other normal in first trimester ANTI HCV Routine 04/11/2024 11:49 AM CDT Encounter for supervision of other normal in first trimester from Last 3 Months or Most Recently Relevant to Health Maintenance Results * SCAN-ULTRASOUND REPORT (11/01/2024 12:00 AM COLLEGE ADMINISTRATOR) Anatomical Region Laterality Modality Other us Scanner OTHER Final Result * ANTI HCV (04/11/2024 11:49 AM CDT) HEPATITIS C ANTIBODY Non-Reacti ve Non-React suly 04/12/2024 4:07 AM CDT [facility] Comment:Please note, per www [...] OUTS Final Resul t Performing Organization Address [facility] Co de Phone Number [facility] [address] [place] [address], * ANTI HIV 1/2 (04/11/2024 11:49 AM CDT) HIV-1/HIV-2 SCREEN Non-Reacti ve Non-Reacti ve 04/12/2024 2:49 AM CDT [facility] Comment:HIV-1 p24 and HIV-1/ HIV-2 Ab Not Detected. Blood BLOOD SPECIMEN / Unknown Venipuncture / Unknown 04/11/2024 11:49 AM CDT 04/11/2024 11:50 AM CDT us Rose Kapadia MD SEND OUTS Final Resul t Performing Organization Address [facility] Co de Phone Number [facility] [address] [place] [address], from Last 3 Months or Most Recently Relevant to Health Maintenance Insurance [facility] Care Teams Corporate Legal Assistant Relationship Specialty Start Date End Date Clinic, [facility] [address] [place] [address] PCP - General 07/11/24 Nia Pritchard DO [address] [place] [address] Family Practice 04/11/24
[2024-12-01 18:51] LABS: Anion Gap 6 mEq/L (7-15); Blood Urea Nitrogen* 8 mg/dL (5-24); Calcium* 9.5 mg/dL (8.4-10.6); Carbon Dioxide* 25 mmol/L (20-32); Creatinine* 0.6 mg/dL (0.5-1.5); Est. Creatinine Clearance* 133.01; Estimated Glomerular Filt Rate 127 ml/min; Glucose* 91 mg/dL (60-115)
[2024-12-01 19:23] LABS: Free T4 Free Thyroxine* 1.18 ng/dL (0.70-1.85)
== END 2024-12-01 20:29 | disposition home or self-care (01) ==
PROVIDERS: Emergency Provider Emergency Medicine Emergency Medical Services; PCP Surgery
DX: R00.2 Palpitations (principal); Z3A.11 11 weeks gestation of pregnancy
CPT/HCPCS: 36415; 80048; 81001; 84439; 84443; 85025; 87086; 93005; 99284

== ENCOUNTER 2025-02-10 14:22 | Outpatient (CLI) | payer BC, SELFPAY | END 2025-02-10 14:23 | disposition home or self-care (01) | LOC: NFLDREF 14:23 | PROVIDERS: PCP Surgery; Visit Provider Obstetrics & Gynecology | DX: O10.912 Unspecified pre-existing hypertension complicating pregnancy, second trimester (principal); Z3A.21 21 weeks gestation of pregnancy | CPT/HCPCS: 82565; 82570; 84156; 84450; 84460 ==

== ENCOUNTER 2025-07-18 01:14 | Emergency (ER) | payer BC, SELFPAY ==
--- OUTSIDE RECORDS SUMMARY | 2025-07-18 01:16 | XMS_ITS | Clinical Summary ---
Author Organization [facility] Address [address] [place] [id number] Care Team Providers Care Is Analyst Name Role Phone Nia Pritchard DO Unavailable [phone] Christal Gunter [facility] Unavailable Maggie Rodriguez MD Unavailable [phone] Rodger Garrison MD Primary Care Provider [phone] Allergies Active Allergy Reactions Criticality Noted Date Comments Amoxicillin-Pot Clavulanate Rash 01/04/2015 Clindamycin Paresthesias 08/07/2015 Diatrizoate Allergen Hives,Shortness Of Breath 12/06/2008 CT contrast Sumatriptan Hives,Shortness Of Breath 09/21/2013 Also had tingling in arms and head. Iodine Hives 07/18/2015 Cephalexin Shortness Of Breath 07/08/2014 See ER notes from 05-10-14, med reaction vs conversion disorder Sutwpmv-Pqfmabgjr-Xfe taminophn Rash 09/28/2014 Adhesive Rash 07/18/2015 Skin comes off Medications albuterol HFA (PRO-AIR; VENTOLIN; PROVENTIL) 90 mcg/actuation inhalerIndicatio ns:Acute cough Inhale 2 Puffs by mouth every 4 hours if needed (cough). 1 Each 2 Active 85-sccu-mjptxq 6-dha 30 mg iron-1mg -200 mg cap Take by mouth. 4 Active levothyroxine 88 mcg tabletIndication s:Hypothyroidism , unspecified type Take 1 Tablet (88 mcg) by mouth once daily. 60 Tablet 1 5 Active Breast Pump PurchaseIndicati ons: disorder, delivered (HC) Electric breast pump for home use. Gestational age at delivery: 37 weeks. Reason for need: disorder delivered. 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 Also 1 ectopic in 2016. Arcuate uterus 06/06/2025 Hypothyroidism 04/03/2025 Family history of congenital heart defect 2024 BMI 35.0-35.9,adult 04/03/2025 Postural orthostatic tachycardia syndrome 2023 Mild persistent asthma without complication 11/2018 Conversion disorder 07/18/2015 Chronic headaches 04/12/2015 Overview (04/12/2015): Referred to as daily headaches at [place]; [facility]; mother refers to them as cluster headaches but no documentation found with that diagnosis. Chronic headache disorder 10/23/2014 Overview (06/06/2025): Referred to as daily headaches at [place]; [facility]; mother refers to them as cluster headaches but no documentation found with that diagnosis. Unspecified convulsions 10/23/2014 Learning disability 08/15/2014 Speech delay 08/15/2014 Anxiety 10/15/2013 Comments Yes Resolved Problems Problem Noted Date Diagnosed Date Resolved Date Encounter for induction of labor 06/06/2025 06/27/2025 Intrauterine growth restrict ion (IUGR) affecting care of mother, third trimester, single gestation 04/13/2025 06/27/2025 Obesity in , antepa rtum, third trimester 04/13/2025 06/27/2025 [facility] Supervision of high-risk 04/03/2025 06/27/2025 Overview (05/23/2025): Xiang Hawkinsanna : 2000 REFERRING PROVIDER/CLINIC LOCATION/FAX #: Christal Gunter CNM - Brandyn Sanderson MD approves scheduling of recommended ultrasounds/testing: Yes [facility] ULTRASOUND/TESTING PATIENT Support person name: ULTRASOUND TYPE: 05/26 BPP REASON FOR VISIT: FGR, BMI 36 NEXT VISIT ALERTS: Needs more testing scheduled Final JENELLE by LMP LMP Date: Patient's last menstrual period was 09/15/2024 (exact date). JENELLE: 06/22/25 Early US: Date: 11/01/24 GA: 6w1d JENELLE: 06/26/25 PrePregnancy Weight: Height: 66 BMI: 36.3 PLANS & FUTURE APPOINTMENTS: ULTRASOUND/GROWTH PLAN: repeat in 3 weeks, - Growth: 06/06 TESTING PLAN: weekly testing with UA dopplers - Testing: Through 06/06 DELIVERY PLAN: - Scheduled delivery: - Preferred delivery location: UTD PRIMARY DIAGNOSIS: 24 y.o. Estimated Date of Delivery: 06/22/25 : FGR Velamentous cord insertion MATERNAL: BMI 36 Asthma Hypothyroid POTS Anxiety 2017 ectopic SAB x 3 (2020, 2022, 2023) Chronic hypertension FOB with Bicuspid AV PREVIOUS ULTRASOUNDS: 05/11/25 34w0d EFW 1825 grams, percentile 4.5 04/13/25 30w0d EFW 1217 grams, percentile: 6, AC 5. 03/02/25 23w3d EFW 518 grams, percentile: 12. Velamentous cord insertion. Placenta appears bulky ([facility]) 02/09/25 21w0d EFW 313 grams, percentile: 16. Velamentous cord insertion (FV L2) ECHO: 04/13/25 Normal segmental cardiac anatomy. Normal biventricular size and function. No gross abnormalities noted on echocardiogram. SPECIALISTS/CONSULTS: Include: Specialty MD Clinic Name Phone# [place] and ADDED TO PATIENT CARE TEAM Yes GENETICS: Declines/Not Done CARE COORDINATION: PERTINENT LABS: Labs reviewed? yes Normal? yes Blood type: A Rh Positive Antibody screen: Negative PERTINENT MEDS: bASA levothyroxine PROCEDURES: FGR <10% or suspected EFW <2000 gm Initial Education given & documented in [facility]: yes on 04/13/2025 FGR AVS printed: 04/13/25 Discussed the 2000 gm (4.5 lbs) and 36 wk GA requirement for admission to [place] [facility]. yes Desired delivery location: [facility] Confirm location of delivery cut off on (S:\Metro\ANW\Pn\ALL MWFCC ANW/NICU): NICU consult offered If EFW is predicted below 2,000 grams: no InBluelock message sent s cheduling pool with subject NICU CONSULT: N/A PLAN OF CARE: Original and updated POC 05/11 JKE -Return to primary provider for continued care. -Betamethasone per provider discretion. -Weekly BPPs. -Weekly umbilical artery Dopplers. -Repeat growth ultrasound in 3 for final delivery planning -The patient was directed to schedule with MPP at the front office agent on the way out, or to call MPP within 2 business days to schedule follow up. High-risk in third trimester 04/03/2025 06/27/2025 Overview (05/18/2025): Brandyn WOLFE - at [facility] 25 y.o. Final Estimated Date of Delivery: 06/22/25 FOB: Nazario sex: High Risk? YES 1) BMI 36 -L2 u/s -Testing @ 37 wks -baby asprin daily 2) FOB hx of bicuspid aortic valve -referral for echo [done & WNL] 3) Velamentous cord insertion - 4) Hypothyroid- dose adjustment at 32 wks, check at 36 wk ( ) 5). Growth Restriction --dx 04/13 --Weekly BPP/NSTs + Umbilical artery Dopplers. --Repeat growth ultrasound @ 34 wks --Delivery @ 39 weeks unless worsening FGR or abnormal UA dopplers Overview: GA at 1OB: Pre-gravid BMI 36.33, goal TWG 5 kg (11 lb)-9 kg (19 lb) at term Maternal carrier screens: _ genetic screens: _ Early GDM screen indicated: Aspirin 81 mg indicated: yes Imaging: Dating_ L2_ 30w 0d. EFW 1217 grams, percentile: 6. Posterior placenta. Anatomy WNL. F/u growth recommended 34 wk growth_05/11/25: EFW 1825 grams, percentile: 4.5. normal dopplers Velamentous insertion of umb ilical cord, antepartum 04/03/2025 06/27/2025 Vaginal bleeding affecting early 05/19/2024 05/19/2024 04/11/2024 04/03/2025 Overview (04/12/2024): Primary OB patient of Preferred name: Xiang Language/cultural preferences: [place] OB HISTORY / PERTINENT MEDICAL HISTORY: Dating [...] Support people at delivery: Circumcision: Breast/Bottle: Contraception: Recurrent streptococcal tonsillitis 09/04/2015 04/18/2024 Clostridium difficile enteritis 08/15/2014 04/18/2024 Body temperature low 02/07/2013 024 Unspecified constipation 03/22/2010 Encounters Date Type Department Care Team Description 07/14/2025 10:00 AM CDT Office Visit [facility] [address] [phone] Kimberley Youssef CNM Physical 07/14/2025 Travel 07/02/2025 2:29 PM CDT - 07/02/2025 4:41 PM CDT Hospital Encounter [address] [address] Taryn Strauss CNM Discharge Disposition: Home Self Care 07/02/2025 Travel 07/02/[address] [address] Taryn Strauss CNM Headache 06/27/2025 1:00 PM CDT Office Visit [facility] [id number] [place] [phone] Skye Merida CNM Care (2 wk) 06/27/2025 Travel 06/09/2025 Telephone [facility] [place] [address] [place] [phone] [facility] ([place] CALL) 06/07/2025 8:37 PM CDT Anesthesia Event [address] [address] Amanda Mancera MD 06/05/2025 7:19 PM CDT - 06/09/2025 11:30 AM CDT Hospital Encounter [address] [address] Christal Gunter CNM disorder, delivered (HC) (Primary Dx) Discharge Disposition: Home Self Care 06/05/2025 Travel 05/31/2025 Travel 05/29/2025 10:00 AM CDT OB Encounter [facility] [address] [place] [phone] Christal Gunter CNM Care (JENELLE 06/22/25 [place] 36w4d) 05/29/2025 Travel 05/26/2025 10:30 AM CDT - 05/26/2025 11:59 PM CDT Hospital Encounter [facility] [address] [facility] [address] [place] [address] Agatha Thompson MD Velamentous insertion of umbilical cord, antepartum (HC); Intrauterine growth restriction (IUGR) affecting care of mother, third trimester, single gestation (HC); Obesity in , antepartum, third trimester (HC); Supervision of high risk in third trimester (HC) 05/26/[address] [address] Christal Gunter CNM Questions 05/26/2025 Travel 05/18/2025 3:15 PM CDT Nurse/Clinic Staff Only [facility] [address] [place] [phone] Irma Kent CNM Procedure (IUGR) 05/18/2025 1:20 PM CDT OB Encounter [facility] [id number] [place] [phone] Irma Kent CNM Care (35w 0d/Feeling tired) 05/18/2025 Travel 05/15/2025 Telephone [facility] [address] [facility] [address] [place] [address] [facility] 05/11/2025 1:15 PM CDT - 05/11/2025 11:59 PM CDT Hospital Encounter [facility] [address] [place] [address] Agatha Thompson MD Supervision of high risk in third trimester (HC) (Primary Dx); Velamentous insertion of umbilical cord, antepartum (HC); Intrauterine growth restriction (IUGR) affecting care of mother, third trimester, single gestation (HC); Obesity in , antepartum, third trimester (HC) 05/11/2025 Travel 05/05/2025 2:30 PM CDT - 05/05/2025 11:59 PM CDT Hospital Encounter [facility] [address] [place] [address] Agatha Thopmson MD Supervision of high risk in third trimester (HC) (Primary Dx); Velamentous insertion of umbilical cord, antepartum (HC); Intrauterine growth restriction (IUGR) affecting care of mother, third trimester, single gestation (HC); Obesity in , antepartum, third trimester (HC) 05/05/2025 Travel 05/03/2025 Travel 05/01/2025 2:20 PM CDT OB Encounter [facility] [address] [place] [phone] Irma Kent CNM Care (32w 4d) 05/01/2025 Travel 04/26/2025 Travel from Last 3 Months Immunizations Immunization Administration Dates Next Due DTP 1998 DTaP 07/19/2002, 9,1998,1997,1998 HIB PRP-OMP (PedvaxHIB) 04/10/1999,1998, HIB-HepB (Comvax) 04/10/1999,1998,06/06/19 98 Hepatitis B (Peds) 04/10/1999,1998, 998 Inactivated Polio Vaccine 06/27/2002,1998, 1998 Influenza Virus, Unspecified 01/22/2007 Influenza, High-dose Quadriv alent Inactivated 10/31/2011,01/22/2007 Influenza, IIV3 (Age 6-35 mos) 10/31/2011 Influenza, IIV3 (Age >=3 years) 10/31/2011,01/22 Influenza, IIV4 11/05/2017,10/12/2015 MMR 06/27/2002,04/10/1999 Oral Polio Vaccine 04/10/1999 Tdap 08/02/2010 Varicella Vaccine 08/02/2010,04/10/1999 Family History Medical History Relation Name Comments Good Health Brother 1 Good Health Brother 2 Good Health Father Asthma Maternal Grandfather Heart Disease Maternal Grandfather [place] wit h stents placed Asthma Maternal Grandmother Cancer Maternal Grandmother multipl e types, unsure which types. Liver disease Maternal Grandmother Asthma Mother Other Mother migraines Rheum arthritis Mother Cancer-breast Other Heart Disease Paternal Grandfather has a pacemaker Anesthesia Problem No Family History Blood Disease No Family History Cancer-colon No Family History Cancer-ovarian No Family History Cervical cancer No Family History Relation Name Status Comments Brother 1 Brother 2 Alive Father Maternal Grandfather Maternal Grandmother Mother Other Maternal Grandm other Paternal Grandfather Social History Tobacco Use Types Packs/Day Years Used Date Smoking Tobacco: Never Smokeless Tobacco: Never Tobacco Cessation:Counseling Given: Yes Comments:No exposure Alcohol Use Standard Drinks/Week Comments No 0 (1 standard drink = 0.6 oz pur e alcohol) PHQ-2 Answer Date Recorded PHQ-2 TOTAL SCORE 0 07/14/2025 Social Connections Answer Date Recorded Do you often feel lonely or isolated from those around you? 0 06/05/2025 Financial Resource Strain Answer Date R ecorded Difficulty of Paying Living Expenses 3 05/01/2025 Difficulty of Paying Living Expenses Not on file 05/01/2025 Food Insecurity Answer Date Recorded Do you worry your food will run out before you are able to buy more? 1 06/05/2025 Transportation Needs Answer Date Record ed Does lack of transportation keep you from medica l appointments? 1 06/05/2025 Does lack of transportation keep you from work, meetings or getting things that you need? 1 06/05/2025 Housing Stability Answer Date Recorded What is your housing situation today? 1 06/05/2025 Interpersonal Safety Answer Date Record ed Are you being hit, kicked, p ushed or yelled at (see row info)? No 06/05/2025 Interpersonal Safety Abuse 12 - 18 Not on file 06/05/2025 Interpersonal Safety Ambulatory Vulnerability No t on file 06/05/2025 Utilities Answer Date Recorded Do you have trouble paying f or utilities (for example, heat, electricity, water, phone)? 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 Gender Identity Not on file Sexual Orientation Not on file Obstetrics History Para Term AB IAB SAB Ectopic Multiple Livin g Live Births 6 1 1 0 4 0 3 1 0 1 1 Date Outcome GA Total Labor Labor/2nd/3rd Weight Sex Type Anes PTL Amisha A1 A5 Name Clin 2016 Ectopic 1 SAB 3 SAB 2023 SAB 10w 1d 2024 Term 38w 0d 37h 42m 36h 22m/1h 05m/0h 15m 2.34 kg (5 lb 2.5 oz) F VAGINA L NANDINI Epidur al Livin g 8 [address] [facility]w in [facility] ed, Taryn kerns CNM Complications:None Delivery Location:Hospital ( [address] L&D TRIAGE) Comments:Nuchal x1 Current Summary Episode Dates Number of Fetuses Estimated Date of Delivery 07/02/2025 - Present (07/18/2025) Unknown Dating Summary Based On JENELLE GA Diff Last Menstrual Period on 09/15/2024 (Exact Date) 06/22/2025 Vitals Date GA Fund Present FHR Mvmt BP Weight Edema Alb Glu Ket Dil/ Eff/Sta 07/02/2025 Inpatient data n ot displayed here. See encounter summary. Notes Progress Notes - Hospital En counter - 07/02/2025 - GA: 07/02/2025 - Lena Hoffmann RN DISPOSITION: Orders received from AIDEN Centeno to discharge patient to home. AVS and instructions of when to return to hospital reviewed with patient. Patient verbalizes understanding and is in agreement with plan of care. Next patient appointment with OB Provider is scheduled on 07/14/2025. At 1641 patient discharged ambulatory. Caryn Hoffmann RN .................... 07/02/2025 4:44 PM 07/02/2025 - Taryn Strauss CNM OB PROGRESS NOTE IUP at Unknown, headache. SUBJECTIVE: Xiang has been having headache since Thursday. She is day 23.she has no history of hypertension. She does have history of migraines. She has been taking Advil with minimal relief. She rates her headache 5/10.Denies visual changes, nausea, emesis, dysuria, frequency, urgency, diarrhea and signs of COVID-19. OBJECTIVE: BP 118/72 Pulse 91 LMP 09/15/2024 (Exact Date) ASSESSMENT: 25 y.o. : 6 PTAL: 1041 No edema, DTR: 2+ No pain on abdomen by palpation. Patient Active Problem List Diagnosis Code Anxiety F41.9 Learning disability F81.9 Speech delay F80.9 Postural orthostatic tachycardia syndrome G90.A Chronic headaches R51.9 Conversion disorder F44.9 Mild persistent asthma without complication (HC) J45.30 Hypothyroidism E03.9 Family history of congenital heart defect Z82.79 BMI 35.0-35.9,adult Z68.35 Chronic headache disorder R51.9, G89.29 Mullerian anomaly of uterus Q51.818 Prediabetes R73.03 Recurrent loss N96 Unspecified convulsions (HC) R56.9 Arcuate uterus Q51.810 (normal spontaneous vaginal delivery) (HC) O80 Single live (HC) Z38.2 Obstetrical laceration, first degree (HC) O70.0 PLAN: admit to triage Evaluation for Pre eclampsia Laboratory Assessment BP monitoring. Tylenol, Reglan, and Benadryl for headache. Will reevaluate in an hour. Taryn Strauss CNM Total Time: 30 Counseling Time: 20 07/02/2025 - Usha Lantigua RN D: At 1429 patient presents ambulatory from home to [facility] for evaluation of Headache starting Thursday. Accompanied by significant. Patient reports DAVIS with onset on/at Thursday. Rates pain 5/10. Patient is a at Unknown gestation. Patient's OB/PMH significant for the following: x1 A: EFM/toco applied (see flowsheet), abdomen gravid, nontender to palpation. Vital signs LMP 09/15/2024 (Exact Date) . R: AIDEN Centeno phoned at 1505 and notified of above data, nursing assessment and FHR tracing. Orders received. Plan of Care discussed with patient, patient verbalizes understanding and agreement. LABS COLLECTED: CBC, CMP, PCR sent to lab. Report given to SKYE Snowden at 1515. Care relinquished. Lorna Lantigua RN .................... 07/02/2025 3:16 PM Last Filed Vital Signs Vital Sign Reading Time Taken Comments Blood Pressure 112/72 07/14/2025 10:12 AM CDT Pulse 84 07/14/2025 10:12 AM CDT Temperature 37 C (98.6 F) 06/09/2025 7:45 AM CDT Respiratory Rate 16 06/09/2025 7:45 AM CDT Oxygen Saturation 96% 06/09/2025 7:45 AM CDT Inhaled Oxygen Concentration - - Weight 98 kg (216 lb) 07/14/2025 10:12 AM CDT Height 167.6 cm (5' 5.98) 06/05/2025 8:00 PM CD T Body Mass Index 34.88 06/05/2025 8:00 PM CDT Plan of Treatment Health Maintenance Due Date Last Done Comments Pneumococcal series for age 6-49 (1 of 2 - PCV) 2017 Pap test for age 21-65 2019 Tetanus booster 08/02/2020 08/02/2010 COVID-19 vaccine series ( - season) 2024 Influenza Vaccine (#1) 2025 7, 10/12/2015, 10/31/2011, Additional history exists BMI (ht and wt on same day) for age 18+ 04/03/2026 04/03/2025, 04/11/2024, 10/28/2021, Additional history exists Depression screening for age 12+ 07/14/2026 07/14/2025, 06/27/2025, 04/03/2025, Additional history exists RSV vaccine for adults or (1 - 1-dose 75+ series) 2073 Hepatitis B series for 19+ Completed 04/10, 04/10/1999, 1998, Additional history exists Hepatitis C screening for ag e 18-79 Completed 04/11/2024 HIV for age 15-65 Completed 11/01/2024, , 08/11/2023 Procedures Procedure Name Priority Date/Time Associated Diagnosis Comments HEMOGLOBIN A1C Routine 07/14/2025 10:59 AM CDT Due for screening PROTEIN/CREAT RATIO,URINE Today 07/02/2025 3:26 PM CDT COMP METABOLIC PANEL STAT 07/02/2025 3:26 PM CDT CBC W PLT NO DIFF STAT 07/02/2025 3:2 6 PM CDT PATH TISSUE EXAM Today 06/08/2025 1:42 AM CDT CSE BLOCK OR LABOR ANALGESIA Routine 06/07/2025 11:23 PM CDT [facility] TUBING PR5 Routine 06/07/2025 8:37 PM CDT [facility] LABOR EPIDURAL INITIAL Routine 06/07/2025 8:37 PM CDT EPIDURAL BLOCK Routine 06/07/2025 8:37 PM CDT [facility] DRSG PR1 Routine 06/07/2025 8:37 PM CDT [facility] KIT EPIDURAL PR10 Routine 06/07/2025 8:37 PM CDT TYPE & SCREEN STAT 06/05/2025 10:23 PM CDT TREPONEMA PALLIDUM STAT 06/05/2025 10 :23 PM CDT HEMOGLOBIN STAT 06/05/2025 10:23 PM CDT VAGINAL/RECTAL OB STREP PCR Routine 05/29/2025 10:39 AM CDT Intrauterine growth restriction (IUGR) affecting care of mother, third trimester, single gestation (HC) High-risk in third trimester (HC) US OB BIOPHYSICAL PROFILE SINGLE W NST Routine 05/26/2025 11:18 AM CDT Velamentous insertion of umbilical cord, antepartum (HC) Intrauterine growth restriction (IUGR) affecting care of mother, third trimester, single gestation (HC) Obesity in , antepartum, third trimester (HC) US OB FOLLOW UP ANY TRI SINGLE TA Routine 05/11/2025 1:45 PM CDT Velamentous insertion of umbilical cord, antepartum (HC) Intrauterine growth restriction (IUGR) affecting care of mother, third trimester, single gestation (HC) Obesity in , antepartum, third trimester (HC) US OB BIOPHYSICAL PROFILE SINGLE W NST Routine 05/05/2025 3:24 PM CDT Velamentous insertion of umbilical cord, antepartum (HC) Intrauterine growth restriction (IUGR) affecting care of mother, third trimester, single gestation (HC) Obesity in , antepartum, third trimester (HC) HIV EXTERNAL Routine 11/01/2024 ANTI HCV Routine 04/11/2024 11:49 AM CDT Encounter for supervision of other normal in first trimester (HC) from Last 3 Months or Most Recently Relevant to Health Maintenance Results * HEMOGLOBIN A1C (07/14/2025 10:59 AM CDT) HEMOGLOBIN A1C 5.5 <5.7 % 07/15/2025 3:28 AM CDT [employer] Comment: For the purpose of screening for the presence of diabetes: <5.7% Consistent with the absence of diabetes 5.7-6.4% Consistent with increased risk for diabetes (prediabetes) > or =6.5% Consistent with diabetes This assay result is consistent with a decreased risk of diabetes. Currently, no consensus exists regarding use of hemoglobin A1c for diagnosis of diabetes in children. According to [place] Diabetes Association (ADA) guidelines, hemoglobin A1c <7.0% represents optimal control in non- diabetic patients. Different metrics may apply to specific patient populations. Standards of Medical Care in Diabetes(ADA). Blood BLOOD SPECIMEN / Unknown [facility] / Unknown 07/14/2025 10:59 AM CDT 07/14/2025 10:59 AM CDT Kimberley Youssef CNM CHEMISTRY Final Result [facility] [address] [phone], * PROTEIN/CREAT RATIO,URINE (07/02/2025 3:26 PM CDT) PROTEIN QUANT,RAND URINE <6 1 - 14 mg/dL 07/02/2025 4:00 PM CDT [facility] CREAT,RANDOM URINE 30.6 28.0 - 217.0 mg/dL 07/02/2025 4:00 PM CDT [facility] PROT/CREAT RATIO,UR 07/02/2025 4:00 PM CDT [facility] Comment:Urine Protein below measurement range, unable to calculate. Urine URINE SPECIMEN / Unknown Non-Blood / Unknown 07/02/2025 3:26 PM CDT 07/02/2025 3:34 PM CDT Taryn Strauss CNM URINE Fin al Result [facility] SENDOUT INTERNAL ZIP [id number] [place] [id number] * CBC W PLT NO DIFF (07/02/2025 3:26 PM CDT) WHITE BLOOD COUNT 7.4 4.5 - 11.0 thou/cu mm 07/02/2025 3:39 PM CDT [facility] RED BLOOD COUNT 4.39 4.00 - 5.20 mil/cu mm 07/02/2025 3:39 PM CDT [facility] HEMOGLOBIN 12.2 12.0 - 16.0 g/dL 07/02/2025 3:39 PM CDT [facility] HEMATOCRIT 36.2 33.0 - 51.0 % 07/02/2025 3:39 PM CDT [facility] MCV 83 80 - 100 fL 07/02/2025 3:39 PM CDT [facility] MCH 27.8 26.0 - 34.0 pg 07/02/2025 3:39 PM CDT [facility] MCHC 33.7 32.0 - 36.0 g/dL 07/02/2025 3:39 PM CDT [facility] RDW 13.6 11.5 - 15.5 % 07/02/2025 3:39 PM CDT [facility] PLATELET COUNT 385 140 - 440 thou/cu mm 07/02/2025 3:39 PM CDT [facility] MPV 8.4 6.5 - 11.0 fL 07/02/2025 3:39 PM CDT [facility] NRBC 0.0 % 07/02/2025 3:39 PM CDT [facility] ABS NRBC 0.0 thou /cu mm 07/02/2025 3:39 PM CDT [facility] Blood BLOOD SPECIMEN / Unknown Non-Lab Venipuncture / Unknown 07/02/2025 3:26 PM CDT 07/02/2025 3:36 PM CDT Taryn Strauss [facility] HEMATOLOGY Fin al Result [facility] SENDOUT INTERNAL ZIP [id number] [place] [id number] * (ABNORMAL) COMP METABOLIC PANEL (07/02/2025 3:26 PM CDT) SODIUM 140 136 - 145 mmol/L 07/02/2025 4:25 PM CDT [facility] POTASSIUM 4.1 3.5 - 5.1 mmol/L 07/02/2025 4:25 PM CDT [facility] LABORATORY CHLORIDE 106 98 - 107 mmol/L 07/02/2025 4:25 PM [facility] CO2,TOTAL 25 22 - 29 mmol/L 07/02/2025 4:25 PM [facility] ANION GAP 9 5 - 18 07/02/2025 4:25 PM [facility] GLUCOSE 84 70 - 99 mg/dL 07/02/2025 4:25 PM [facility] CALCIUM 9.5 8.8 - 10.4 mg/dL 07/02/2025 4:25 PM [facility] Comment: Reference ranges for this test were updated on 10/04/2024 to reflect our healthy population more accurately. Reference range changes are not retroactively applied to results, but previous results using the same methodology can be interpreted in the context of the new reference range. BUN 12 6 - 20 mg/dL 07/02/2025 4:25 PM [facility] CREATININE 0.72 0.50 - 0.90 mg/dL 07/02/2025 4:25 [facility] BUN/CREAT RATIO 17 10 - 20 4:25 PM [facility] eGFR >90 >90 mL/min/1. 73m2 07/02/2025 4:25 PM [facility] Comment:As of 2022, eG FR is calculated by the CKD-EPI creatinine equation without race adjustment. eGFR can be influenced by muscle mass, exercise, and diet. The reported eGFR is an estimation only and is only applicable if the renal function is stable. ALBUMIN 3.9(L) 4.0 - 4.9 g/dL 07/02/2025 4:25 PM [facility] PROTEIN,TOTAL 7.4 6.0 - 8.0 g/dL 07/02/2025 4:25 PM [facility] BILIRUBIN,TOTAL 0.2 0.0 - 1.2 mg/dL 07/02/2025 4:25 PM [facility] ALK PHOSPHATASE 92 35 - 104 IU/L 07/02/2025 4:25 PM [facility] ALT (SGPT) 24 10 - 35 IU/L 07/02/2025 4:25 PM [facility] AST (SGOT) 22 10 - 35 IU/L 07/02/2025 4:25 PM [facility] Blood BLOOD SPECIMEN / Unknown Non-Lab Venipuncture / Unknown 07/02/2025 3:26 PM CDT 07/02/2025 3:36 PM CDT Taryn Strauss CNCharla CHEMISTRY Fin al Result [facility] SENDOUT INTERNAL ZIP [address] [place] [id number] * PATH TISSUE EXAM (06/08/2025 1:42 AM CDT) Case Report Pathology Report Case: [id number] Authorizing Provider: Taryn Strauss, Collected: 06/08/2025 0142 AIDEN Ordering Location: [facility] Received: 06/08/2025 0720 Pathologist: Mg Locke MD Specimen: Placenta 06/09/2025 3:54 PM CDT [facility]-C ENTRAL LABORATORY Final Diagnosis A) PLACENTA, VAGINAL DELIVERY: 1. Third trimester hagen placenta with the following characteristics: a. Weight: 347 grams (< 5th percentile for gestational age 38 weeks) b. Membranes with no significant histologic alterations c. Three vessel umbilical cord with marginal insertion; no vessel tear or injury present d. Chronic villitis of unknown etiology (ZHEN) characterized by: i. Grade: low ii. Villous involvement: multifocal iii. Stem vessel involvement: absent iv. Negative for viral cytopathic changes v. See comment d. Subchorionic fibrin e. Placental disc with infarcts (5% placental volume) f. Placental disc with intervillous thrombus (< 5% placental volume) g. Chorionic villi hypermature for gestational age with increased syncytial knotting h. Decidual arteriopathy present 2. Negative for chorioamnionitis and funisitis 06/09/2025 3:54 PM CDT [facility]-C ENTRAL LABORATORY at 1554 CDT Comment Chronic villitis is often clinically silent, but has also been associated with intrauterine growth restriction. It is difficult to distinguish between an atypical infection and villitis of unknown etiology (ZHEN); the morphologic pattern in this case is most suggestive of ZHEN. As implied by the diagnosis, ZHEN is poorly understood, but is thought to represent a maternal alloimmune inflammatory response to antigens. Provided clinical exclusion of infection, low-grade ZHEN has a recurrence risk in future pregnancies. Decidual arteriopathy is seen here. Decidual arteriopathy has also been associated with both chronic and associated hypertension. The severity of the histologic findings do not necessarily correlate with the severity of the hypertension, clinical correlation is recommended. Subchorionic fibrin is a normal finding in placentas, often increasing in amount with advancing gestational age. When severe, it may be associated with maternal coagulopathies or hypertension/preec lampsia. 06/09/2025 3:54 PM CDT [facility] LAB[facility]AT[facility] Clinical Information Indications- : IUGR (Intrauterine Growth Restriction) Maternal: n/a Placental: Abnormal Cord Insertion Marginal and Abnormal Cord Insertion Velamentous Infections specimen (eg. Maternal HIV or HCV)? No Delivery- Date: 06/08/2025 Time: 0107 Type: Vaginal Live born: Yes Gestational age (wks): 38w0d weeks wt (g): 2340 grams Infant sex: Female Pertinent maternal history- , Term, Premature, AB, Living: Diabetes: no Hypertension: no Eclampsia: no Smoking: no Other: n/a Autopsy info: Not applicable 06/09/2025 3:54 PM CDT [facility]AL LABORATORY Gross Description A) Received fresh labeled with the patient's name and placenta, is a 347 gram, 14 x 13.5 x 3.5 cm discoid hagen placenta. Membranes are semiopaque red-sarabia, appear to insert marginally, and stripped (90%) with an indeterminate point of rupture. Three-vessel cord inserts at the marginal placental edge, is 53 cm long, averages 1 cm diameter and without discoloration, true cord knots or thrombi. surface is blue-morel and red-sarabia with diffuse focally mildly engorged vasculature without thrombi or defects. Cut surfaces are spongy and soft red-sarabia parenchyma with 4 intraparenchymal sarabia lesions ranging 0.8-1.3 cm, involving 5% of the placental volume. Bottom Cager sections are submitted in 6 cassettes: 1. Membranes 2. Three-vessel cord 3. 4 intraparenchymal lesions 4. Marginal placenta adjacent to marginal cord insertion, full-thickness 5-6. Random central placenta, full-thickness sections (bisected slices) Time and date in formalin: 1430 on 06/08/2025 LDW 06/08/2025 06/09/2025 3:54 PM CDT [facility]- ENTRAL LABORATORY Microscopic Description The final diagnosis is based on microscopic examination of appropriate sections of all specimens. 06/09/2025 3:54 PM CDT [facility]- ENTRAL LABORATORY Additional Information Interpreted at [facility] - [address], [place] [address] 06/09/2025 3:54 PM CDT [facility]- ENTRAL LABORAT[facility] Other SPECIMEN FROM PLACENTA / Unknown Non-Blood / Unknown 06/08/2025 1:42 AM CDT 06/08/2025 7:20 AM CDT Comment:Recommended:Indicati ons- : IUGR (Intrauterine Growth Restriction) Maternal: n/a Placental: Abnormal Cord Insertion Marginal and Abnormal Cord Insertion VelamentousInfections specimen (eg. Maternal HIV or HCV)? NoDelivery- Date: 06/08/2025 Time: 0107 Type: Vaginal Live born: Yes Gestational age (wks): 38w0d weeks Infant wt (g): 2340 grams Infant sex: FemalePertinent maternal history- , Term, Premature, AB, Living: Diabetes: no Hypertension: no Eclampsia: no Smoking: no Other: n/aAutopsy info: Not applicable Taryn TARIQ PATHOLOGY/CYTOLOGY Final Result [facility] [address] [place] [address], * [facility] DRSG PR1 (06/07/2025 11:23 PM CDT) Narrative Amanda Mancera MD - 06/07/2025 11:23 PM CDT Amanda Mancera MD 06/07/2025 11:30 PM Labor Epidural Management Time Requested: 06/07/2025 11:20 PM Face Time Start: 06/07/2025 11:23 PM Face Time Stop: 06/07/2025 11:26 PM Indications: inadequate analgesia Inadequate analgesia: lower right abdomen pain with contractions. Plan: epidural bolus given Result [facility] Amanda Mancera MD ANESTHESIA PX NOTE ORD ERABLES Final Result * [facility]CHG KIT EPIDURAL PR10, [facility] DRSG PR1, EPIDURAL BLOCK, [facility] LABOR EPIDURAL INITIAL, [facility] TUBING PR5(06/07/2025 8:37 PM CDT) Narrative Amanda Mancera MD - 06/07/2025 8:37 PM CDT Amanda Mancera MD 06/07/2025 9:35 PM Labor Analgesia Labor Analgesia Type: epidural Patient location during procedure: OB Time Requested: 06/07/2025 8:35 PM Start time: 06/07/2025 8:37 PM End time: 06/07/2025 8:54 PM Diagnosis: labor pain ASA: 3 Completed: patient identified, risks and benefits discussed, timeout performed, chloraprep used and completely dried prior to procedure and surgical consent Patient position: sitting Patient monitoring: continuous pulse oximetry and blood pressure Approach: midline Prep: chloraprep Skin Infiltration: lidocaine 1% SABRINA: saline Epidural Location: lumbar Needle and Epidural Catheter Needle type: Busportal Needle gauge: 18 G Needle length: 3.5 in Needle insertion depth: 5 cm Catheter type: closed tip Catheter size: 20 G Aspiration of Catheter: negative Catheter at skin depth: 10 cm Test dose: lidocaine 1.5% with epinephrine 1:200,000 Test dose amount: 3 ml Test dose result: negative Assessment Events: no complications Result [facility] Amanda Mancera MD ANESTHESIA PX NOTE ORD ERABLES Final Result * TREPONEMA PALLIDUM (06/05/2025 10:23 PM CDT) TREPONEMA PALLIDUM Non-Reacti ve Non-Reacti ve 06/06/2025 7:47 AM CDT [facility] TR[facility] LABORATORY Blood BLOOD SPECIMEN / Unknown Non-Lab Venipuncture / Unknown 06/05/2025 10:23 PM CDT 06/05/2025 10:31 PM CDT [facility] Fin al Result [facility] [address] [place] [address], * TYPE & SCREEN (06/05/2025 10:23 PM CDT) ABORH A Rh Positive 06/06/2025 12:04 AM CDT [facility] ANTIBODY SCREEN Negative Negative 06/06/2025 12:04 AM CDT [facility] SPECIMEN EXPIRATION DATE/TIME 06/08/25 23:59 06/06/2025 12:04 AM CDT [facility] Blood BLOOD SPECIMEN / Unknown Non-Lab Venipuncture / Unknown 06/05/2025 10:23 PM CDT 06/05/2025 10:31 PM CDT Sabi Mariano [facility] BLOOD BANK Fin al Result Performing Organization Address [facility]/ZIP Co de Phone Number [facility] [address] [place] [phone] * (ABNORMAL) HEMOGLOBIN (06/05/2025 10:23 PM CDT) HEMOGLOBIN 11.2(L) 12.0 - 16.0 g/dL 06/05/2025 10:35 PM CDT [facility] MCV 81 80 - 100 fL 06/05/2025 10:35 PM CDT [facility] Blood BLOOD SPECIMEN / Unknown Non-Lab Venipuncture / Unknown 06/05/2025 10:23 PM CDT 06/05/2025 10:31 PM CDT Sabi Mariano [facility] HEMATOLOGY Fin al Result [facility] SENDOUT INTERNAL ZIP [address] [place] [address] * VAGINAL/RECTAL OB STREP PCR (05/29/2025 10:39 AM CDT) Vaginal/Rectal OB Strep B PCR Negative 05/31/2025 9:45 AM CDT [facility] Other (Vaginal/Rectal) Non-Blood / Unknown 05/29/2025 10:39 AM CDT 05/29/2025 2:53 PM CDT Christal Gunter CNM MICROBIOLOGY Final Result [facility] [address] [place] [address], [place] * BPP with NST (CPT 88201) (05/26/2025 11:18 AM CDT) Only the most recent of2 resultswithin the time period is included. Anatomical Region Laterality Modality Ultrasound 05/26/2025 11:1 4 AM CDT Narrative 05/26/2025 11:44 AM CDT Referred By: CHRISTAL GUNTER CNM INDICATION: FGR Indications Code 36 weeks gestation of Z3A.36 FGR - Growth Restriction FOB with bicuspid aortic valve Velamentous cord insertion BMI > 35 CHTN Hypothyroidism +levothyroxine 2017 ectopic, SAB x3 (2020, 2022, 2023) [facility]O [facility]2 with [facility] 02/09/25 IMPRESSIONS: Intrauterine at 36w 1d. presentation is Cephalic. Placental location: Fundal Deepest Vertical Pocket of amniotic fluid: 3.65 cm. Reassuring biophysical profile 07/07. NST reactive The umbilical artery ratio were abnormal with elevated SD ratio. RECOMMENDATIONS: -Plan on induction at 37 weeks due to FGR with abnormal Dopplers. -Plan was discussed with the family and rationale was explained. Staff note was sent to primary Office by RN Ms. Alejandre was informed to make appointment LILIAN for RODRIGUEZ score and to discuss induction of labor with primary provider. COMMENT: The patient was seen by the Perinatologist today. The results of today's ultrasound were communicated to the patient and answered relevant questions. Government regulations related to the Cures act require that this note be released to the patient immediately, sometimes before the referring provider has been contacted. Medical Decision Making: Moderate Level 43303 Moderate number/complexity of problems including an undiagnosed new problem with uncertain prognosis or an acute illness with systemic symptoms for mother or fetus, etc. Moderate amount and/or complexity of Data reviewed and analyzed including review of prior ultrasound, ordering another ultrasound, and review of prior external notes, etc. Moderate risk of morbidity or mortality related to prescription drug treatment, elective major surgery, or social determinants of health, etc. Services Provided: Procedures Code BPP/NST & UMBILICAL DOPPLER 21374.0 26952.0 Procedure Note Junior Solis MBBS - 05/26/2025 Referred By: CHRISTAL GUNTER CNM INDICATION: FGR IndicationsCode 36 weeks gestation of [id number].36 FGR - Growth Restriction FOB with bicuspid aortic valve Velamentous cord insertion BMI > 35 CHTN Hypothyroidism +levothyroxine 2017 ectopic, SAB x3 (2020, 2022, 2023) [facility] 02/09/25 IMPRESSIONS: Intrauterine at 36w 1d. presentation is Cephalic. Placental location: Fundal Deepest Vertical Pocket of amniotic fluid: 3.65 cm. Reassuring biophysical profile 07/07. NST reactive The umbilical artery ratio were abnormal with elevated SD ratio. RECOMMENDATIONS: -Plan on induction at 37 weeks due to FGR with abnormal Dopplers. -Plan was discussed with the family and rationale was explained. Staff note was sent to primary Office by RN Ms. Carlsonyla was informed to make appointment LILIAN for RODRIGUEZ score and todiscuss induction of labor with primary provider. COMMENT: The patient was seen by the Perinatologist today. The results of today'sultrasound were communicated to the patient and answered relevant questions. Government regulations related to the Century Cures act require thatthis note be released to the patient immediately, sometimes before the referring provider hasbeen contacted. Medical Decision Making: Moderate Level 86901 Moderate number/complexity of problems including an undiagnosed newproblem with uncertain prognosis or an acute illness with systemic symptoms for mother or fetus,etc. Moderate amount and/or complexity of Data reviewed and analyzedincluding review of prior ultrasound, ordering another ultrasound, and review of prior externalnotes, etc. Moderate risk of morbidity or mortality related to prescription drugtreatment, elective major surgery, or social determinants of health, etc. Services Provided: ProceduresCode BPP/NST & UMBILICAL DOPPLER 60527.758836.0 us Agatha Thompson MD Final Res ult * Follow Up Any Trimester (CPT 56768) If BPP w/NST needed use Testing section for order (05/11/2025 1:45 PM CDT) Anatomical Region Laterality Modality , 2or 3 TRIMESTER Ultrasound 05/11/2025 1:17 PM CDT Narrative 05/11/2025 3:01 PM CDT Referred By: CHRISTAL GUNTRE CNCharla INDICATION: Indications Code 34 weeks gestation of Z3A.34 FGR - Growth Restriction FOB with bicuspid aortic valve Velamentous cord insertion BMI > 35 CHTN Hypothroidism 2017 ectopic, SAB x3 (2020, 2022, 2023) [facility]ETO from [facility] with [facility] 02/09/25 IMPRESSION: Intrauterine at 34w 0d. presentation is Cephalic. EFW 1825 grams, percentile: 4.5. Growth parameters and estimated weight are consistent with growth restriction. Deepest Vertical Pocket of amniotic fluid: 3.21 cm. Biophysical profile score: 10/10. No major structural anomalies identified. The umbilical artery Dopplers were normal. Placental location: Posterior fundal. The transabdominal cervical length is not seen. RECOMMENDATIONS: -Return to primary provider for continued care. -Betamethasone per provider discretion. -Weekly BPPs. -Weekly umbilical artery Dopplers. -Repeat growth ultrasound in 3 for final delivery planning -The patient was directed to schedule with [facility] at the front office agent on the way out, or to call [facility] within 2 business days to schedule follow up. COMMENT: The patient was seen by the Perinatologist today. The previous ultrasound and the records were reviewed. The results of today's ultrasound were communicated to the patient. Reviewed continued mild FGR with normal fluid and dopplers, and consistently reassuring surveillance. Recommend delivery at 39w if ongoing stability and mild FGR; if severe FGR (<3%) or elevated UAR, recommend 37w; if non-reassuring status or absent/reversed UAR, anticipate admission for stabilization and prompt delivery would be recommended. There are risks, benefits and limitations to maternal serum screening, ultrasound, and genetic amniocentesis. Government regulations related to the Century Cures act require that this note be released to the patient immediately, sometimes before the referring provider has been contacted. A portion of the information was presented verbally to the patient. The remainder is submitted as background for the referring provider, to be discussed as needed. Medical Decision Making Low Level 28024 Limited number and complexity of Problems addressed including two self limited problems, and FGR Limited Amount and/or complexity of Data reviewed and analyzed: Category 1a (two) External Notes, Review Results of Unique Tests and Ordering Unique Tests Moderate risk of morbidity from recommendations for early delivery which was explained Services Provided: Procedures Code FOLLOW UP GROWTH, BPP/NST & UMBILICAL DOPPLER 21399.0 45848.0, 90991.0 Procedure Note Nicki Nichols MD - 05/11/2025 Referred By: CHRISTAL GUNTER CNM INDICATION: IndicationsCode 34 weeks gestation of [id number].34 FGR - Growth Restriction FOB with bicuspid aortic valve Velamentous cord insertion BMI > 35 CHTN Hypothroidism 2017 ectopic, SAB x3 (2020, 2022, 2023) [facility]O from [facility] with [facility] 02/09/25 IMPRESSION: Intrauterine at 34w 0d. presentation is Cephalic. EFW 1825 grams, percentile: 4.5. Growth parameters and estimated weight are consistent with fetalgrowth restriction. Deepest Vertical Pocket of amniotic fluid: 3.21 cm. Biophysical profile score: 10/10. No major structural anomalies identified. The umbilical artery Dopplers were normal. Placental location: Posterior fundal. The transabdominal cervical length is not seen. RECOMMENDATIONS: -Return to primary provider for continued care. -Betamethasone per provider discretion. -Weekly BPPs. -Weekly umbilical artery Dopplers. -Repeat growth ultrasound in 3 for final delivery planning -The patient was directed to schedule with [facility] at the front office agent on theway out, or to call [facility] within 2 business days to schedule follow up. COMMENT: The patient was seen by the Perinatologist today. The previous ultrasoundand the records were reviewed. The results of today's ultrasound werecommunicated to the patient. Reviewed continued mild FGR with normal fluid and dopplers, andconsistently reassuring surveillance. Recommend delivery at 39w if ongoing stability and mild FGR;if severe FGR (<3%) or elevated UAR, recommend 37w; if non-reassuring status orabsent/reversed UAR, anticipate admission for stabilization and prompt delivery would be recommended. There are risks, benefits and limitations to maternal serum screening,ultrasound, and genetic amniocentesis. Government regulations related to the Cures act require thatthis note be released to the patient immediately, sometimes before the referring provider hasbeen contacted. A portion of the information was presented verbally to the patient. Theremainder is submitted as background for the referring provider, to be discussed as needed. Medical Decision Making Low Level 50817 Limited number and complexity of Problems addressed including two selflimited problems, and FGR Limited Amount and/or complexity of Data reviewed and analyzed: [id number] (two) External Notes, Review Results of Unique Tests and Ordering Unique Tests Moderate risk of morbidity from recommendations for early delivery whichwas explained Services Provided: ProceduresCode FOLLOW UP GROWTH, BPP/NST & UMBILICAL DOPPLER 47866.549648.0, 19858.0 Agatha Thompson MD Edited Re sult - Final * HIV EXTERNAL (11/01/2024) EXTERNAL HIV Negative [facility] Blood BLOOD SPECIMEN / Unknown [facility] Fi nal Result [facility] [address] [place], [place] [id number] * ANTI HCV (04/11/2024 11:49 AM CDT) HEPATITIS C ANTIBODY Non-Reacti ve Non-React suly 04/12/2024 4:07 AM CDT [facility] TRAL LABORATORY Comment:Please note, per www [...] Kapadia MD SEND OUTS Final Resul t [facility]AL LABORATORY [address] [place] [address], from Last 3 Months or Most Recently Relevant to Health Maintenance Insurance [facility] Advance Directives Documents on File Type Date Recorded Patient Bottom Cager Expl anation Treatment Guidelines 05/22/2025 * Full Code (Latest Code Status on File) Date Activated Date Inactivated Comments 06/08/2025 3:18 AM 06/09/2025 2:35 PM Question Answer Comments Code Status Discussion: Reviewed Preferences Care Teams Is Analyst Relationship Specialty Start Date End Date Rodger Garrison [place] [address] [address] PCP - General Family Practice 05/30/25 Nia Pritchard DO [address] [place] [address] Family Practice 04/11/24 Christal Gunter CNM [address] [place] [address] Referring Provider Certified Nurse Neuropsychology Director 04/03/25 Maggie Rodriguez MD [address] [address] Cardiology Cardiology - Pediatric 04/12/25 6
[2025-07-18 01:25] VITALS: BP 134/93; PULSE 108; RESP 20; TEMP 36.7; O2SAT 97
--- NOTE | 2025-07-18 01:58 | CRLHL7_ITS ---
For Patients: As a result of the Century Cures Act, medical imaging exams and procedure reports are released immediately into your electronic medical record. You may view this report before your referring provider. If you have questions, please contact your health care provider. Indication: Right upper quadrant pain Technique: Limited abdominal ultrasound. Evaluation of the liver, gallbladder, common bile duct, pancreas, right kidney, and aorta/IVC. Grayscale and color Doppler imaging utilized. Comparison: None Findings: Liver: Unremarkable size and echotexture. Gallbladder: Stones present. Borderline wall thickening. Technologist reports negative sonographic Johnson`s sign. Common bile duct: 3 mm. Pancreas: Partially obscured. Visualized portions are unremarkable. Right kidney: Unremarkable. Aorta/IVC: Unremarkable. Impression: Cholelithiasis and borderline wall thickening. Technologist reports a negative sonographic Johnson`s sign. If patient has been premedicated for pain accompany this examination would be suggestive of acute cholecystitis. If patient has not been pre-medicated for pain, the examination is equivocal but suggestive against acute cholecystitis. Dictated by Suman Sarabia MD @ 07/18/2025 3:12:38 AM (Electronically Signed)
--- NOTE | 2025-07-18 02:06 | ED_ITS ---
HPI - General Adult General Chief complaint: Abdominal Pain Stated complaint: abdominal and back pain Time Seen by Provider: 07/18/25 01:48 Source: patient Mode of arrival: ambulatory Limitations: no limitations History of Present Illness HPI narrative: 25-year-old female presents to the emergency department for evaluation of right upper quadrant pain. Back aches since evening, a right upper quadrant abdominal pain for the past 3 hours. No injury or trauma. Accompanied by nausea. No fever. No prior history of similar symptoms. She is 6 weeks , no prior history of gallstones. She has had 1 prior abdominal surgery for an ectopic back in 2017. She did not try taking any medications to help with symptoms. Denies urinary or gynecological changes. She is breast-feeding but simply been taking with formula. Pain does come in waves intermittently, rated in triage as 3/10. Pain does wrap around to the right flank area. No shoulder pain. Ports the review of systems is otherwise benign times 12 systems. Long-term medications include Synthroid. Multiple antibiotic allergies and does have what sounds like a very valid contrast allergy. Nonsmoker. Accompanied by partner. Related Data Home Medications ?Medication ?Instructions ?Recorded ?Confirmed levothyroxine 88 mcg tablet 88 mcg PO DAILY 07/18/25 Previous Rx's ?Medication ?Instructions ?Recorded levothyroxine 100 mcg tablet 100 mcg PO QDAY #90 tabs 09/26/24 Allergies Allergy/AdvReac Type Severity Reaction Status Date / Time Iodinated Contrast Media Allergy Severe Hives & Verified 07/18/25 01:31 Respiratory Distress clindamycin Allergy Intermediate Shortness Verified 07/18/25 01:31 of Breath acetaminophen (From Midrin) Allergy Unknown Verified 07/18/25 01:31 amoxicillin (From Augmentin) Allergy Unknown Verified 07/18/25 01:31 cephalexin (From Keflex) Allergy Unknown Verified 07/18/25 01:31 clavulanic acid (From Allergy Unknown Verified 07/18/25 01:31 Augmentin) dichloralphenazone (From Allergy Unknown Verified 07/18/25 01:31 Midrin) isometheptene (From Midrin) Allergy Unknown Verified 07/18/25 01:31 sumatriptan (From Imitrex) Allergy Unknown Verified 07/18/25 01:31 adhesive tape AdvReac Unknown Unknown Verified 07/18/25 01:31 [facility] Medical History Recurrent loss ?N96 - Recurrent loss (ICD-10) Anxiety ?F41.9 - Anxiety disorder, unspecified (ICD-10) Postural orthostatic tachycardia syndrome ?G90.A - Postural orthostatic tachycardia syndrome [POTS] (ICD-10) Migraines ?G43.909 - Migraine, unspecified, not intractable, without status migrainosus (ICD-10) Hypothyroidism ?E03.9 - Hypothyroidism, unspecified (ICD-10) 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 - Other congenital malformations of uterus (ICD-10) Surgical History History of tonsillectomy (2014) ?Z90.89 - Acquired absence of other organs (ICD-10) History of salpingostomy (02/06/16) ?Z98.890 - Other specified postprocedural states (ICD-10) Social History What is your current living situation?: I presently have a place to live Problems where you live: no known problems In the past 12 months, utilities in danger of being shut off: no In past 12 months, lack of transportation kept you from medical appts, meetings, work, or getting things needed for daily living: no In the past 12 mos, have been you worried that your food would run out before you had money to buy more?: never true In the past 12 mos, the food you bought just didn't last and you didn't have money to buy more?: never true Smoking Status: Never smoker Do you use any of these nicotine containing products: None Second hand tobacco smoke exposure: No How often do you have a drink containing alcohol: never How often do you have six or more drinks on one occasion: Never AUDIT-C Alcohol total score: 0 Non-prescribed substance use: denies use Caffeine: Yes Within the last year, have you been humiliated or emotionally abused in other ways by your partner or ex-partner: no Within the last year, have you been afraid of your partner or ex-partner: no Within the last year, have you been raped or forced to have any kind of sexual activity by your partner or ex-partner: no Within the last year, have you been kicked, hit, slapped, or otherwise physically hurt by your partner or ex-partner: no HARK total score: 0 service: No Exam Const: Vital Signs, click to edit/add: Vital Signs - 24 hr 07/18/25 01:25 Temperature 98.1 F Pulse Rate [Right] 108 H Respiratory Rate 20 Blood Pressure [Ri ght Upper Arm] 134/93 H Pulse Oximetry 97 Oxygen Delivery Me thod Room Air Documenting provider has reviewed patient's vital signs: yes Common normals: no apparent distress and alert General appearance: cooperative and well kempt HENMT: Common normals: normocephalic, moist oral mucous membranes and oropharynx normal Head and scalp: normocephalic Mouth: oral and palatal mucosa normal Eye: Common normals: conjunctivae normal General eye: normal appearance of both eyes Conjunctiva: conjunctiva(e) normal Neck & C-Spine: Common normals: full ROM and no lymphadenopathy General: no rmal visual inspection Resp: Common normals: normal respiratory effort, no use of accessory muscles and clear to auscultation bilaterally Effort & inspection: able to speak in complete sentences Auscultation: clear to auscultation bilaterally Cardio: Common normals: regular rate, regular rhythm, S1 normal heart sound, S2 normal heart sound and no murmurs Rate: regular rate Rhythm: regular rhythm Heart sounds: S1 normal and S2 normal GI: Common normals: Normal to inspection, nondistended, normoactive bowel sounds present, soft to palpation, no hepatosplenomegaly and no masses Palpation: soft and no hepatosplenomegaly Other: Positive Johnson sign but no guarding. No obvious mass. : Common normals: no CVA tenderness Bladder/kidney exam: no CVA tenderness Back & Pelvis: Common normals: no CVA tenderness Extremity: Common normals: normal to inspection and normal capillary refill General: normal exam except as noted Neuro: Common normals: moves all extremities Sensorium/orientation: alert Psych: Common normals: speech normal Appearance: well kempt Attitude: engaged Activity/motor behavior: appropriate eye contact Speech: normal speech Insight: insight good Judgement: judgment good Skin: Common normals: no rashes or lesions noted General skin exam: no rashes or lesions noted Course Course ED Course: 25-year-old female 6 weeks with right upper quadrant pain. Differential diagnosis most likely gallstone cannot exclude cholecystitis, colitis, gastritis, biliary dyskinesia, pancreatitis, musculoskeletal pain, kidney stone, atypical pneumonia, amongst others. Will obtain ultrasound of the right upper quadrant, typical abdominal labs. She is hesitant to use any narcotics for pain, will try Toradol and Zofran. Await findings. No initial clinical signs of sepsis or dehydration. Reevaluation(s) Time of Reevaluation #1: 03:42 Reevaluation #1: Patient reports pain is 2 to 3/10 after Toradol but that was what her pain was prior to the Toradol also. Ultrasound findings are mostly reassuring. She certainly has some gallstones but borderline wall thickness but no white count, no pericholecystic fluid no common bile duct dilation. She was not premedicated with any narcotics prior to the study, tech reported negative Johnson sign at the time of her exam. Labs are all really reassuring also. Counseled patient that I think this is mostly just symptomatic gallstones but is not suggestive of infection certainly if she starts having fever, worsening symptoms radiation to the shoulder, pancreatitis symptoms, we should re-evaluate. The letter know that unfortunately these episodes are likely to happen again. Alarm symptoms reviewed that would point more towards home management with Tylenol and ibuprofen verses ED referral. She verbalizes understanding and agreement. Consider surgical referral if more than 3 episodes within a year. Low-fat diet advised though I did let her know unfortunately dietary modification may not always prevent or trigger these episodes. They do not always follow a predictable pattern. Written instructions provided. She verbalized understanding and agreement. Vital Signs Vital signs: Initial Vital Signs Temperature 98.1 F 07/18/25 01:25 Temperature Source Temporal Artery Scan 07/18/25 01:25 Pulse Rate 108 H 07/18/25 01:25 Pulse Rhythm Regular 07/18/25 01:25 Respiratory Rate 20 07/18/25 01:25 Blood Pressure 134/93 H 07/18/25 01:25 Blood Pressure Mean 106 H 07/18/25 01:25 Pulse Oximetry 97 07/18/25 01:25 Oxygen Delivery Method Room Air 07/18/25 01:25 Vital Signs Temperature 98.1 F 07/18/25 01:25 Pulse Rate 108 H 07/18/25 01:25 Respiratory Rate 20 07/18/25 01:25 Blood Pressure 134/93 H 07/18/25 01:25 Pulse Oximetry 97 07/18/25 01:25 Oxygen Delivery Method Room Air 07/18/25 01:25 Temperature 98.1 F 07/18/25 01:25 Pulse Rate 108 H 07/18/25 01:25 Respiratory Rate 20 07/18/25 01:25 Blood Pressure 134/93 H 07/18/25 01:25 Pulse Oximetry 97 07/18/25 01:25 Oxygen Delivery Method Room Air 07/18/25 01:25 Medications Administered Medications: Discontinued Medications Generic Name Dose Route Start Last Admin Trade Name Freq PRN Reason Stop Dose Admin Ketorolac Tromethamine 15 mg 07/18/25 02:03 07/18/25 02:23 Ketorolac 15 Mg/Ml Inj IVP 07/18/25 02:04 15 mg ONCE ONE Administration Ondansetron HCl 4 mg 07/18/25 02:03 07/18/25 02:20 Ondansetron 2 Mg/Ml Inj IVP 07/18/25 02:04 4 mg ONCE ONE Administration Medical Decision Making Lab Data Lab results reviewed: Yes I reviewed the patient's lab results Lab results narrative: Reassuring labs. No signs of biliary obstruction, elevated white count or pancreatitis. Labs: Lab Results 07/18/25 07/18/25 Range/Units 02:14 02:24 WBC 10.04 (4.50-11.00) K/uL RBC 4.91 (4.00-5.20) m/uL Hgb 13.1 (12.0-16.0) gm/dL Hct 41.3 (33.0-51.0) % MCV 84 (80-100) fL MCH 27 (26-34) pg MCHC 32 (32-36) gm/dL RDW Coeff of Adry 13.3 (11.5-15.5) % Plt Count 476 H (140-440) K/uL Neut % (Auto) 63.5 (42.0-72.0) % Lymph % (Auto) 26.8 (20-44) % [place] % (Auto) 7.7 (0.0-11.0) % Eos % (Auto) 1.2 (0.0-7.0) % Baso % (Auto) 0.3 (0.0-3.0) % Neut # (Auto) 6.38 (1.7-7.0) K/uL Lymph # (Auto) 2.69 (0.90-2.90) K/uL [facility] # (Auto) 0.80 (0.00-0.90) K/UL Eos # (Auto) 0.12 (0.00-0.50) K/uL Baso # (Auto) 0.03 (0.00-0.30) K/uL Abs Immat Gran (auto) 0.05 (0.00-0.30) K/uL Imm/Tot Granulo (auto) 0.5 % Sodium 138 (135-149) mmol/L Potassium 4.4 (3.6-5.1) mmol/L Chloride 103 (96-114) mmol/L Carbon Dioxide 27 (20-32) mmol/L Anion Gap 8 (7-15) mEq/L BUN 21 (5-24) mg/dL Creatinine 0.8 (0.5-1.5) mg/dL Estimated GFR 104 ml/min Glucose 98 (60-115) mg/dL Calcium 10.2 (8.4-10.6) mg/dL Total Bilirubin 0.3 (0.1-1.5) mg/dL AST 29 (12-35) U/L ALT 32 (4-35) U/L Alkaline Phosphatase 86 (40-150) U/L C-Reactive Protein 1.6 H (0.5-1.0) mg/dL Total Protein 8.1 (6.0-8.3) g/dL Albumin 4.6 (3.3-5.0) g/dL Lipase 106 (23-300) U/L Urine Color Yellow (Yellow) Urine Appearance Slightly Cloudy A (Clear) Urine pH 6.5 (5.0-8.5) Ur Specific [place] 1.010 (1.000-1.030) Urine Protein Negative (Negative) Urine Glucose (UA) Negative (Negative) Urine Ketones Negative (Negative) Urine Blood Negative (Negative) Urine Nitrite Negative (Negative) Urine Bilirubin Negative (Negative) Urine Urobilinogen 0.2 (0.2-1.0) Ur Leukocyte Esterase 1+ A (Negative) Urine RBC 0-2 (0-2) Urine WBC 0-2 (0-5) Ur Squamous Epith Cells Few (None-Few) Urine Bacteria Few A (None) Urine HCG, Qual Negative (Negative) Imaging Data us abdomen limited: Attestation: I have reviewed the pertinent imaging results. My impression: No common bile duct dilation, lots of gallstones, mobile. Wall does not look thickened and there is certainly no pericholecystic fluid. Of note, was not premedicate prior to the study Radiologist's impression: Gallbladder: Stones present. Borderline wall thickening. Technologist reports negative sonographic Johnson`s sign. Common bile duct: 3 mm. Pancreas: Partially obscured. Visualized portions are unremarkable. Right kidney: Unremarkable. Aorta/IVC: Unremarkable. Impression: Cholelithiasis and borderline wall thickening. Technologist reports a negative sonographic Johnson`s sign. If patient has been premedicated for pain accompany this examination would be suggestive of acute cholecystitis. If patient has not been pre-medicated for pain, the examination is equivocal but suggestive against acute cholecystitis. Dictated by Suman Sarabia MD @ 07/18/2025 3:12:38 AM Discharge Plan Discharge Clinical Impression: Gallstones Patient Disposition: Home w/ Parent or Adult Condition: Improved Instructions: Gallstones (ED) Additional Instructions: As we discussed, your ultrasound is suggestive of gallstones but is not suggestive of significant infection or inflammation or blockage of the common bile duct. This is overall good news. Unfortunately people to get these episodes are more likely to get them again. Episodes will typically last for 2- 8 hours and be accompanied by right upper quadrant abdominal pain and nausea. Symptoms are often triggered after eating but unfortunately not always in a predictable fashion. Fried foods, fatty your foods or really large meals are more likely to trigger symptoms but not always. Unfortunately you will not likely get consistent results with certain foods. Sometimes, if you are early in the process the ultrasound and labs can miss an infection in the gallbladder. So if you start having worsening of symptoms in the next few hours, high fever, are unable to even hold down any water or have severe pain especially if radiating into the shoulder, would recommend re- evaluation. Otherwise you are likely to have similar episodes to this. As long as they are not lasting for more than about 12 hours, do not have severe vomiting, do not have fever, radiation to the shoulder or other symptoms of infection, it is okay to try to manage at home with Tylenol and ibuprofen. Remember that if you have 3 episodes per year, it really is probably best to just have the gallbladder removed in your primary care physician could refer you to 1 of our general surgeons to consider this. For pain, I recommend Tylenol 1000 mg every 6 hours and or ibuprofen 600 mg every 6 hours. Both these would of course be safe in breast-feeding. Prescriptions: No Action levothyroxine 100 mcg tablet 100 mcg PO QDAY Qty: 90 1RF levothyroxine 88 mcg tablet 88 mcg PO DAILY Follow Up/Referrals: Rodger Garrison MD [Primary Care Provider, Family Practice] Stand Alone Forms: [employer] Info Instructions
[2025-07-18] MEDS: ONDANSETRON 2 MG/ML inj 4 MG IVP (02:20)
[2025-07-18 02:31] LABS: Hematocrit 41.3 % (33.0-51.0); Hemoglobin* 13.1 gm/dL (12.0-16.0); Immature Granulocytes Abs Auto 0.05 K/uL (0.00-0.30); Immature Granulocytes Pct Auto 0.5 %; Lymphocytes Absolute Auto 2.69 K/uL (0.90-2.90); Mean Corpuscular HGB Conc 32 gm/dL (32-36); Mean Corpuscular Hemoglobin 27 pg (26-34); Mean Corpuscular Volume 84 fL (80-100); RDW Coefficient of Variation % 13.3 % (11.5-15.5); Red Blood Count 4.91 m/uL (4.00-5.20); White Blood Count* 10.04 K/uL (4.50-11.00)
[2025-07-18 02:34] LABS: Appearance Urine Slightly Cloudy (Clear); Ur HCG Qualitative* Negative (Negative)
[2025-07-18 02:35] LABS: Slide Review Reflex No
[2025-07-18 02:41] LABS: Chloride* 103 mmol/L (96-114)
[2025-07-18 02:42] LABS: Albumin* 4.6 g/dL (3.3-5.0); Potassium* 4.4 mmol/L (3.6-5.1); Sodium* 138 mmol/L (135-149)
[2025-07-18 02:44] LABS: Blood Urea Nitrogen* 21 mg/dL (5-24); Creatinine* 0.8 mg/dL (0.5-1.5); Estimated Glomerular Filt Rate 104 ml/min
[2025-07-18 02:45] LABS: Alanine Aminotransferase* 32 U/L (4-35); Alkaline Phosphatase* 86 U/L (40-150); Anion Gap 8 mEq/L (7-15); Aspartate Amino Transferase* 29 U/L (12-35); Bilirubin Total* 0.3 mg/dL (0.1-1.5); Calcium* 10.2 mg/dL (8.4-10.6); Carbon Dioxide* 27 mmol/L (20-32); Glucose* 98 mg/dL (60-115); Total Protein* 8.1 g/dL (6.0-8.3)
== END 2025-07-18 03:43 | disposition home or self-care (01) ==
PROVIDERS: Emergency Provider Family Medicine; PCP Surgery
DX: K80.20 Calculus of gallbladder without cholecystitis without obstruction (principal)
CPT/HCPCS: 36415; 76705; 80053; 81001; 81003; 81025; 83690; 85025; 86140; 87086; 96374; 96375; 99284; J1885; J2405